=== PATIENT | male | born 1965 | race Caucasian/White ===

== ENCOUNTER 2019-06-03 09:54 | Outpatient (CLI) | payer OTHER, SELFPAY ==
--- NOTE | ~2019-06-03 | US_ITS ---
US abdomen limited 06/03/2019 10:24 Indication: Epigastric mass Procedure: High-resolution Limited ultrasound of the anterior abdominal wall Comparison: No prior studies for comparison. Findings: There is normal heterogeneous echotexture without focal mass. No evidence for hernia. No fl uid collections. Impression: 1: Normal limited ultrasound of the anterior abdominal wall soft tissues in the epigastric region. Reviewed, dictated and finalized at location A. Impression: 1: Normal limited ultrasound of the anterior abdominal wall soft tissues in the epigastric region.
== END 2019-06-03 09:55 | disposition home or self-care (01) ==
LOC: ANHIMG 10:01
PROVIDERS: PCP Registered Nurse; Visit Provider Registered Nurse
DX: R19.06 Epigastric swelling, mass or lump (principal)
CPT/HCPCS: 76705

== ENCOUNTER 2020-02-29 18:51 | Emergency (ER) | payer OTHER, SELFPAY ==
[2020-02-29] VITALS (17 sets, daily range): BP systolic 128–163; BP diastolic 78–98; PULSE 65–78; RESP 14–24; TEMP 36.8; O2SAT 95–99
--- NOTE | ~2020-02-29 | XR_ITS ---
EXAMINATION: XR chest 2V EXAM DATE: 02/29/2020 19:31 INDICATION: Midsternal chest pain started today. Shortness of breath and vomiting. TECHNIQUE: Frontal and lateral projections of the chest obtained and reviewed. There is no prior mai dy for comparison. FINDINGS: Small amount of linear bilateral opacity consistent with atelectasis. The lungs are otherw ise clear. There are no pleural effusions. The cardiomediastinal silhouette is within normal limits . There is no pneumothorax suspected. The bones and soft tissues are unremarkable. IMPRESSION: Small linear opacities likely atelectasis. Reviewed, dictated and finalized at location A. [address]
--- NOTE | 2020-02-29 19:01 | ECG_ITS ---
Measurements Intervals [place] Rate: 68 P: 45 OK: 188 QRS: 31 QRSD: 110 T: 33 QT: 380 QTc: 406 Interpretive Statements SINUS RHYTHM NORMAL ECG Electronically Signed On 03-01-2020 7:12:28 [employer] by Joaquim Botello D.O.
[2020-02-29] MEDS: ASPIRIN 81 MG CHEWABLE TABLET 324 MG PO (19:16)
[2020-02-29 19:26] LABS: Basophils Absolute Auto 0.1 K/mm3 (0.0-0.1); Basophils Percent Auto 0.8 % (0.2-1.2); Eosinophils Absolute Auto 0.2 K/mm3 (0-0.3); Eosinophils Percent Auto 2.7 % (0-4.4); Hematocrit 39.1 % (42.0-52.0); Hemoglobin 13.6 g/dL (14.0-18.0); Immature Granulocyte Absolute 0.01 K/mm3 (0.00-0.031); Immature Granulocyte Percent A 0.1 % (0-0.5); Lymphocytes Absolute Auto 2.92 K/mm3 (0.9-3.2); Lymphocytes Percent Auto 39.6 % (18.3-44.2); Mean Corpuscular HGB Conc 34.8 g/dl (32-36); Mean Corpuscular Hemoglobin 31.3 pg (26-34); Mean Corpuscular Volume 90.1 fl (80-100); Mean Platelet Volume 10.1 fl (7.4-10.4); Monocytes Absolute Auto 0.6 K/mm3 (0.1-0.6); Monocytes Percent Auto 7.9 % (2.6-8.5); Neutrophils Absolute Auto 3.6 K/mm3 (1.3-6.7); Neutrophils Percent Auto 48.9 % (45.5-73.1); Platelet Count Result 271 k/mm3 (150-375); Red Blood Count 4.34 M/mm3 (4.6-6.20); Red Cell Distribution Width 11.9 % (11.5-14.5); White Blood Count 7.4 K/mm3 (4.5-10.0)
[2020-02-29 19:38] LABS: Anion Gap 9 mmol/L (8-16); Blood Urea Nitrogen 13 mg/dL (9-20); Calcium 8.8 mg/dL (8.4-10.2); Carbon Dioxide 25 mmol/L (22-30); Chloride 104 mmol/L (98-107); Estimated CRCL calculation 100 ml/min; Estimated Glomerular Filt Rate > 60; Glucose 96 mg/dL (75-110); Potassium 3.6 mmol/L (3.4-5.0); Sodium 138 mmol/L (137-145)
[2020-02-29 19:47] LABS: INR 0.9
[2020-02-29 19:48] LABS: Partial Thromboplastin Time 25.9 SECONDS (22.3-36.8)
[2020-02-29 19:50] LABS: Troponin I < 0.012 ng/mL (0.000-0.034)
--- NOTE | 2020-02-29 21:04 | ED.CHESTPAIN ---
HPI - Chest Pain General Chief Complaint: Chest Pain Stated Complaint: cp, n/v Time Seen by Provider: 02/29/20 18:59 History of Present Illness HPI narrative: Patient is a 54-year-old male who presents ER with chest pain. Patient reports he sat down to eat dinner and he took a bite of his fork ribs when he started to feel pressure in his central chest. Excuse himself in several months without trying. He had continued pressure as well as nausea and attempts to vomit. Reports mild discomfort breathing. Symptoms resolved on the way to the ER. Asymptomatic this time. Has had this happen other times. He believes it was also was eating. Denies having any acid reflux symptoms. No exertional chest pain. Concerned because he had a brother that recently of an [place]. No radiation of pain. Cannot describe any alleviating factors. Related Data Home Medications Medication Instructions Recorded Confirmed No Home Medications 02/29/20 02/29/20 Allergies Allergy/AdvReac Type Severity Reaction Status Date / Time Penicillins Allergy Fever Verified 02/29/20 18:59 Review of Systems Review of Systems: All systems reviewed & are unremarkable except as noted in HPI and below Constitutional: Constitutional: Denies chills, Denies fever(s) and Denies weakness ENT: Reports dysphagia, Denies nasal congestion and Denies sore throat Cardiovascular: Cardiovascular: Reports chest pain, Denies rapid heart rate and Denies radiating jaw, neck or arm pain Respiratory: Respiratory: Denies cough and Denies dyspnea Gastrointestinal: Gastrointestinal: Denies abdominal pain, Denies heartburn, Reports nausea and Reports vomiting PMFSH Past Medical History Medical History (Updated 02/29/20 @ 21:13 by Adis Whitaker MD) Healthy adult male Surgical History Surgical History (Updated 02/29/20 @ 21:07 by Adis Whitaker MD) History of orthopedic surgery Social History Social History (Updated 02/29/20 @ 21:07 by Adis Whitaker MD) Smoking status: Never smoker Exam Narrative: Exam Narrative: GENERAL: Well-appearing, well-nourished, and in no acute distress. HEAD: Normocephalic, atraumatic. ENT: Mucous membranes moist. CHEST: Clear to auscultation. No respiratory distress. HEART: Regular rate and rhythm. Normal peripheral pulses. ABDOMEN: Soft, nontender, nondistended. EXTREMITIES: Normal range of motion. No edema. NEURO: NAlert and oriented x3. PSYCH: Normal mood and affect. Course Course Emergency Course: Symptoms most consistent with food bolus but will perform 2 separate phone given family history and patient is concerned. EKG unremarkable. Reevaluation(s) Reevaluation #1: trop neg x 2. Date: 02/29/20 Time: 22:42 Vital Signs Vital signs: Vital Signs Temperature 98.2 F 02/29/20 18:55 Pulse Rate 70 02/29/20 18:55 Respiratory Rate 18 02/29/20 18:55 Blood Pressure 163/94 H 02/29/20 18:55 Pulse Oximetry 96 02/29/20 18:55 Temperature 98.2 F 02/29/20 18:55 Pulse Rate 70 02/29/20 21:30 Respiratory Rate 14 02/29/20 21:30 Blood Pressure 142/94 H 02/29/20 21:30 Pulse Oximetry 97 02/29/20 21:30 MDM - Chest Pain Lab Data Result diagrams: 02/29/20 19:19 02/29/20 19:19 Labs: Lab Results 02/29/20 02/29/20 02/29/20 Range/Units 19:19 19:19 19:19 WBC 7.4 (4.5-10.0) K/mm3 RBC 4.34 L (4.6-6.20) M/mm3 Hgb 13.6 L (14.0-18.0) g/dL Hct 39.1 L (42.0-52.0) % MCV 90.1 (80-100) fl MCH 31.3 (26-34) pg MCHC 34.8 (32-36) g/dl RDW 11.9 (11.5-14.5) % Plt Count 271 (150-375) k/mm3 MPV 10.1 (7.4-10.4) fl Immature Gran % (Auto) 0.1 (0-0.5) % Neut % (Auto) 48.9 (45.5-73.1) % Lymph % (Auto) 39.6 (18.3-44.2) % [place] % (Auto) 7.9 (2.6-8.5) % Eos % (Auto) 2.7 (0-4.4) % Baso % (Auto) 0.8 (0.2-1.2) % Lymph # (Auto) 2.92 (0.9-3.2) K/mm3 [place] # (Auto) 0.6 (0.1-0.6) K/mm3 Eos # (
[2020-02-29 22:34] LABS: Troponin I < 0.012 ng/mL (0.000-0.034)
== END 2020-02-29 22:53 | disposition home or self-care (01) ==
PROVIDERS: Emergency Provider Emergency Medicine; PCP Registered Nurse
DX: R07.89 Other chest pain (principal); T18.128A Food in esophagus causing other injury, initial encounter; R91.8 Other nonspecific abnormal finding of lung field
CPT/HCPCS: 36415; 71046; 80048; 84484; 85025; 85610; 85730; 93005; 99284; A9270

== ENCOUNTER 2021-07-27 10:07 | Outpatient (CLI) | payer OTHER, SELFPAY ==
[2021-07-27 10:36] LABS: Hematocrit 41.3 % (42.0-52.0); Hemoglobin 14.1 g/dL (14.0-18.0); Mean Corpuscular HGB Conc 34.1 g/dl (32-36); Mean Corpuscular Hemoglobin 31.5 pg (26-34); Mean Corpuscular Volume 92.4 fl (80-100); Mean Platelet Volume 9.9 fl (7.4-10.4); Platelet Count Result 263 k/mm3 (150-375); Red Blood Count 4.47 M/mm3 (4.6-6.20); Red Cell Distribution Width 12.5 % (11.5-14.5)
[2021-07-27 10:46] LABS: Alanine Aminotransferase 56 U/L (6-50); Albumin Level 4.3 g/dL (3.5-5.1); Alkaline Phosphatase 97 U/L (38-126); Anion Gap 3 mmol/L (8-16); Aspartate Amino Transferase 35 U/L (17-59); Bilirubin,Total 0.5 mg/dL (0.2-1.3); Blood Urea Nitrogen 10 mg/dL (9-20); Calcium 8.7 mg/dL (8.4-10.2); Carbon Dioxide 27 mmol/L (22-30); Chloride 107 mmol/L (98-107); Estimated Glomerular Filt Rate > 60; Glucose 107 mg/dL (65-110); Potassium 4.4 mmol/L (3.4-5.0); Sodium 137 mmol/L (137-145)
[2021-07-31 12:10] LABS: Tissue Transglutaminase IgG Ab <1.0 U/mL (<15.0)
[2021-08-01 09:36] LABS: Tissue Transglutaminase IgA Ab <1.0 U/mL (<15.0)
== END 2021-07-27 10:08 | disposition home or self-care (01) ==
LOC: ANHLAB 10:11
PROVIDERS: PCP Registered Nurse; Visit Provider Nurse Practitioner Family
DX: R19.7 Diarrhea, unspecified (principal); R10.32 Left lower quadrant pain; R14.0 Abdominal distension (gaseous)
CPT/HCPCS: 36415; 80053; 83516; 84443; 85027

== ENCOUNTER 2021-09-06 07:44 | Outpatient (CLI) | payer OTHER, SELFPAY ==
[2021-09-06 09:05] LABS: Toxigenic C. Diff NEGATIVE (NEGATIVE)
[2021-09-12 23:17] LABS: Calprotectin, Stool 48 mcg/g
== END 2021-09-06 07:45 | disposition home or self-care (01) ==
PROVIDERS: PCP Registered Nurse; Visit Provider Nurse Practitioner Family
DX: E66.9 Obesity, unspecified (principal); R10.32 Left lower quadrant pain; R14.0 Abdominal distension (gaseous); R19.7 Diarrhea, unspecified
CPT/HCPCS: 83993; 87045; 87177; 87209; 87427; 87493

== ENCOUNTER → 2021-09-09 13:40 | Outpatient (CLI) | payer OTHER, SELFPAY ==
--- NOTE | ~2021-09-09 | CT_ITS ---
EXAMINATION: CT abdomen pelvis w con DATE: 09/09/2021 14:24 INDICATION: Left lower quadrant abdominal pain. TECHNIQUE: Computed tomography (CT) of the abdomen and pelvis was performed with 100 mL Omnipaque 350 intravenous contrast. Automated exposure control and iterative reconstruction technique were employe d. The dose-length product was 1134.46 mGy-cm. COMPARISON: None. FINDINGS: The visualized portions of the lung bases demonstrate mild atelectasis. A calcified left leslie ng nodule is consistent with old granulomatous disease. No pleural effusion. The heart size is normal . No pericardial effusion. There are coronary artery calcifications. The liver, gallbladder, spleen, pancreas, adrenal glands, and right kidney are normal. There is a 1 mm stone in left kidney. There ar e scattered diverticula in the colon. There is an intussusception involving transverse colon. There i s wall thickening of the involved bowel. The more proximal bowel is not dilated. There is an umbilica l hernia containing fat. There are no pathologically enlarged lymph nodes. There is no free intraperi toneal fluid. There is a hemangioma in L2 vertebral body. There is moderate lower lumbar spondylosis. There is a hemangioma in T7 vertebral body. IMPRESSION: 1. Intussusception involving transverse colon. Wall thickening of the involved bowel is suspicious fo r malignancy. No dilated bowel to suggest current obstruction. 2. Umbilical hernia containing fat. Reviewed, dictated and finalized at location A. IMPRESSION: 1. Intussusception involving transverse colon. Wall thickening of the involved bowel is suspicious for malignancy. No dilated bowel to suggest current obstruc tion. 2. Umbilical hernia containing fat.
== END ==
PROVIDERS: PCP Nurse Practitioner; Visit Provider Nurse Practitioner
DX: K92.1 Melena (principal); R19.7 Diarrhea, unspecified; R14.0 Abdominal distension (gaseous); R10.32 Left lower quadrant pain; K56.1 Intussusception; K42.9 Umbilical hernia without obstruction or gangrene
CPT/HCPCS: 74177; Q9967

== ENCOUNTER 2021-09-09 15:43 | Inpatient (IN) | payer OTHER, SELFPAY ==
--- NOTE | ~2021-09-09 | XR_ITS ---
XR enema water soluble DATE: 09/10/2021 11:39 INDICATION: Left lower quadrant abdominal pain TECHNIQUE: Water-soluble single contrast enema. 26 images 4.0 minutes fluoroscopy time 210.307 total DAP COMPARISON: 09/09/2021 CT abdomen pelvis FINDINGS: Occasional sigmoid diverticula. There was delay 2 retrograde filling of the colon in the mi d transverse colon area which may be due to prominent amount of fecal material or the possibility of an intussusception suggested on 09/09/2021 CT abdomen and pelvis examination. There is fecal material remaining within the colon, which prevents confident exclusion of polyps or m ass lesion of the colon. Colon mass could be a lead point for transverse colon intussusception. Colon oscopy is recommended. Reflux was obtained into the terminal ileum. IMPRESSION: Retained fecal material within the colon which prevents exclusion of polyps or masses. Co lonoscopy is strongly recommended. Mild sigmoid colon diverticulosis Reviewed, dictated and finalized at Location A. Reviewed, dictated and finalized at location A. IMPRESSION: Retained fecal material within the colon which prevents exclusion o f polyps or masses. Colonoscopy is strongly recommended. Mild sigmoid colon diverticulosis
[2021-09-09 15:55] VITALS: BP 138/101; PULSE 71; RESP 18; TEMP 36.1; O2SAT 98
[2021-09-09 16:22] LABS: Basophils Percent Auto 0.6 % (0.2-1.2); Eosinophils Absolute Auto 0.1 K/mm3 (0-0.3); Eosinophils Percent Auto 1.7 % (0-4.4); Hematocrit 41.7 % (42.0-52.0); Hemoglobin 14.4 g/dL (14.0-18.0); Immature Granulocyte Absolute 0.02 K/mm3 (0.00-0.031); Immature Granulocyte Percent A 0.3 % (0-0.5); Lymphocytes Absolute Auto 2.25 K/mm3 (0.9-3.2); Lymphocytes Percent Auto 34.5 % (18.3-44.2); Mean Corpuscular HGB Conc 34.5 g/dl (32-36); Mean Corpuscular Hemoglobin 31.4 pg (26-34); Mean Corpuscular Volume 90.8 fl (80-100); Mean Platelet Volume 10.2 fl (7.4-10.4); Monocytes Absolute Auto 0.4 K/mm3 (0.1-0.6); Monocytes Percent Auto 6.4 % (2.6-8.5); Neutrophils Absolute Auto 3.7 K/mm3 (1.3-6.7); Neutrophils Percent Auto 56.5 % (45.5-73.1); Platelet Count Result 272 k/mm3 (150-375); Red Blood Count 4.59 M/mm3 (4.6-6.20); Red Cell Distribution Width 11.8 % (11.5-14.5); White Blood Count 6.5 K/mm3 (4.5-10.0)
[2021-09-09 16:31] LABS: Alanine Aminotransferase 42 U/L (6-50); Albumin Level 4.2 g/dL (3.5-5.1); Alkaline Phosphatase 101 U/L (38-126); Anion Gap 9 mmol/L (8-16); Aspartate Amino Transferase 29 U/L (17-59); Bilirubin,Total 0.5 mg/dL (0.2-1.3); Blood Urea Nitrogen 12 mg/dL (9-20); Calcium 8.9 mg/dL (8.4-10.2); Carbon Dioxide 27 mmol/L (22-30); Chloride 102 mmol/L (98-107); Estimated CRCL calculation 86 ml/min; Estimated Glomerular Filt Rate > 60; Glucose 109 mg/dL (65-110); Lipase 103 U/L (23-300); Potassium 3.9 mmol/L (3.4-5.0); Sodium 138 mmol/L (137-145)
--- NOTE | 2021-09-09 17:26 | ED.GENADULT ---
HPI - General Adult General Chief complaint: Abdominal Pain Stated complaint: dr urbina sent here after ct scan - blockage/cance Time Seen by Provider: 09/09/21 17:07 Source: RN notes reviewed History of Present Illness HPI narrative: Patient presents emergency department from home for intussusception. Patient states that he had ongoing history of lower abdominal pain for the past 6 months the pain is described as achy in nature has been followed up in Dr Urbina's office by Morenita andhe had a CT scan today showing it intussusception with thickening of the transverse colon patient was instructed come to ER for further evaluation he denies any fevers or chills chest pain shortness of breath nausea vomiting he states he has had loose stools states he has not had a colonoscopy before in the past and is scheduled for colonoscopy at the end of this month Related Data Allergies Allergy/AdvReac Type Severity Reaction Status Date / Time Penicillins Allergy Fever Verified 09/09/21 16:00 Review of Systems Review of Systems: Gen.: Denies fevers or chills ENT: Denies congestion Respiratory: Denies shortness of breath or cough CV: Denies chest pain or palpitations GI: See HPI Musculoskeletal: Denies back pain or muscle pain Neuro: Denies numbness, tingling, weakness or focal weakness Skin: Denies rash Except as documented, all other systems reviewed and negative PMFSH Past Medical History Medical History Bloating Blood in stool Diarrhea Elevated liver enzymes Healthy adult male Left lower quadrant pain Obese Surgical History Surgical History History of orthopedic surgery Social History Social History Smoking status: Never smoker Exam Narrative: APPEARANCE: No acute distress, nontoxic, resting in bed HEENT: Normocephalic, atraumatic, OMM RESPIRATORY: No respiratory distress, clear to auscultation bilaterally with no rhonchi wheezing or rales CARDIOVASCULAR: RRR s murmur ABDOMINAL: Soft nondistended nontender to palpation no rebound or guarding MUSCULOSKELETAl: Moves all extremities. No clubbing, cyanosis or edema. NEURO: Awake and alert. Following commands, speech normal, no focal deficits SKIN:: Warm, dry. Normal Color PSYCHIATRIC: Normal affect/mood Course Course Emergency Course: Reviewed CT scan showing intussusception with thickening of the involved colon located over the transverse colon Called discussed with Dr Urbina presentation work-up at this time he recommends admission of the patient with consult with general surgery states patient can be on clear liquids Discussed with Dr. Spencer presentation work-up agrees with consult Discussed with BREANNA Nassar for Dr. Marques agrees with admission Discussed with patient and family results of workup and diagnosis. Discussed need for admission. Patient and family understand and agree to current treatment plan Vital Signs Vital signs: Vital Signs Temperature 97 F L 09/09/21 15:55 Pulse Rate 71 09/09/21 15:55 Respiratory Rate 18 09/09/21 15:55 Blood Pressure 138/101 H 09/09/21 15:55 Pulse Oximetry 98 09/09/21 15:55 Temperature 97 F L 09/09/21 15:55 Pulse Rate 71 09/09/21 15:55 Respiratory Rate 18 09/09/21 15:55 Blood Pressure 138/101 H 09/09/21 15:55 Pulse Oximetry 98 09/09/21 15:55 Medical Decision Making Vital Signs Vital Signs: Vital Signs Temperature 97 F L 09/09/21 15:55 Pulse Rate 71 09/09/21 15:55 Respiratory Rate 18 09/09/21 15:55 Blood Pressure 138/101 H 09/09/21 15:55 Pulse Oximetry 98 09/09/21 15:55 Temperature 97 F L 09/09/21 15:55 Pulse Rate 71 09/09/21 15:55 Respiratory Rate 18 09/09/21 15:55 Blood Pressure 138/101 H 09/09/21 15:55 Pulse Oximetry 98 09/09/21 15:55 Lab Data Result diagrams: 09/09/21 16:05
[2021-09-09 17:38] LABS: Lactic Acid Reflex 0.9 mmol/L (0.7-2.0)
[2021-09-09 17:39] LABS: Partial Thromboplastin Time 25.6 SECONDS (22.3-36.8)
[2021-09-09 18:03] LABS: Appearance Urine Clear (Clear); Bilirubin Urine Negative (Negative); Blood Urine Negative (Negative); Color Urine Yellow (Yellow); Glucose Urine UA Negative (Negative); Ketones Urine Negative (Negative); Leukocyte Esterase Ur Negative LEU/UL (Negative); Nitrate Urine Negative (Negative); Protein Urine Negative (Negative); Urobilinogen Urine 0.2 mg/dL (<2.0); pH Urine 6.5 (5.0-9.0)
[2021-09-09 18:05] LABS: Add Urine Microscopic? NO
[2021-09-09] MEDS: PANTOPRAZOLE SODIUM IV 40 MG VIAL IV PUSH (18:16)
[2021-09-09] MEDS: SODIUM CHLORIDE 0.9% IV 1,000 ML 125 ML IV CONT (18:16)
[2021-09-09 18:28] LABS: SARS-CoV-2 RNA PCR Negative
[2021-09-09 19:20] VITALS: BP 125/78; PULSE 59; RESP 18; O2SAT 98
[2021-09-09 20:14] VITALS: BP 141/88; PULSE 68; RESP 18; O2SAT 99
[2021-09-09 20:40] VITALS: BP 123/93; PULSE 64; RESP 18; TEMP 36.6; O2SAT 98; BMI 30.7
--- NOTE | 2021-09-09 20:52 | PC.NURSE ---
This patient, Russell Vang, was admitted to [facility] Surg Room 301-01. Patient/family oriented to hospital policies and general routines including ID bracelet, bed and alarms, visiting hours, pain management, procedures, bathroom and other care routines, personal items, smoking policy, room service/diet, and visiting hours. Information on how to activate the Rapid Response Team has been discussed. Patient/Family are encouraged to report perceived risks to care and to ask questions if they do not understand what they are told or what they should do.
[2021-09-09 22:00] VITALS: PULSE 66; RESP 17; O2SAT 98
--- NOTE | 2021-09-09 23:42 | PM.IMHP ---
H&P: HPI History of Present Illness Date/Time: 09/09/21 23:42 Chief Complaint: Abnormal CT Reading Narrative: Greater than 30 minutes spent reviewing chart, evaluating, treating, counseling patient. Anticipate less than 48 hour admission, will place under observation. 56-year-old male no significant past medical history presents after abnormal CT abdomen pelvis rating. Patient has a history of diarrhea for the past year, 5-10 times a day of liquid stool. Patient also has had abdominal pain for the past 2 months in bilateral lower quadrants. He initially thought the diarrhea was secondary to his protein diet was taken with a shake and stop this, however the diarrhea continued. For the past 2 months he has noted specks of blood in his stool. Patient was evaluated by GI couple months ago and plan was for a colonoscopy in the next month. Patient initially was on Bentyl 10 mg, however for the past 2 months doubled up on the Bentyl and has noted decreased abdominal pain and improvement in diarrhea with now soft stools. Patient denies weight loss and night sweats. No family history of IBD or colon cancer. CT abdomen/pelvis demonstrating intussusception involving the transverse colon along with wall thickening suspicious for malignancy. No dilated bowel suggestive of obstruction. GI and general surgery consult in the ED. Review of Systems Review of Systems: Ten point ROS reviewed, negative unless otherwise specified per HPI [facility] Past Medical History Medical History Bloating Blood in stool Diarrhea Elevated liver enzymes Healthy adult male Left lower quadrant pain Obese Surgical History Surgical History History of orthopedic surgery Social History Social History Smoking status: Never smoker Alcohol intake: current Drinks per week: 12 Substance use: never Spiritual care concerns: No Meds Home Medications and Allergies Home Medications Medication Instructions Recorded Confirmed Type dicyclomine 10 mg capsule 20 mg PO TID PRN abdominal 09/09/21 09/09/21 History discomfort Allergies Allergy/AdvReac Type Severity Reaction Status Date / Time Penicillins Allergy Fever Verified 09/09/21 16:00 Vital Signs Vital Signs - 24 hr 09/09/21 15:55 09/09/21 19:20 09/09/21 20:14 Temperature 97 F L Pulse Rate 71 59 L 68 Respiratory Rate 18 18 18 Blood Pressure 138/101 H 125/78 141/88 H Pulse Oximetry 98 98 99 09/09/21 20:40 Temperature 97.8 F Pulse Rate 64 Respiratory Rate 18 Blood Pressure 123/93 H Pulse Oximetry 98 Exam Const: General: comfortable and no acute distress HENMT: Mouth: Yes moist mucous membranes Eyes: General: appearance normal, both eyes and all related structures Pupils: Equal, round and reactive pupils present Neck: Neck: supple Resp: Effort & Inspection: normal respiratory effort Auscultation: clear to auscultation bilaterally Cardio: Rate: regular rate Rhythm: regular rhythm Other: no gallop or murur GI: GI Palp: Yes Soft to palpation Auscultation: normal bowel sounds Other: nontender, nondistended Skin: General skin exam: normal color Other: petechiae noted on abdomen, tattoos on b/l UEs Neuro: Speech: normal speech Motor exam (neuro): 5/5 motor strength present throughout Sensory Exam: normal sensation Extrem: General: normal to inspection Psych: Mental Status: mental status grossly normal Affect: normal affect H&P: Results Labs Labs: Short CBC 09/09/21 Range/Units 16:05 WBC 6.5 (4.5-10.0) K/mm3 Hgb 14.4 (14.0-18.0) g/dL Hct 41.7 L (42.0-52.0) % Plt Count 272 (150-375) k/mm3 BMP 09/09/21 16:05 Sodium 138 Potassium 3.9 Chloride 102 Carbon Dioxide 27 BUN 12 Creatinine 1.00 Glucose 109 Calcium 8.9 Liver Function 08
[2021-09-10 05:56] VITALS: BP 121/85; PULSE 63; RESP 18; TEMP 36.7; O2SAT 97
[2021-09-10 06:33] LABS: Basophils Percent Auto 0.7 % (0.2-1.2); Eosinophils Absolute Auto 0.1 K/mm3 (0-0.3); Eosinophils Percent Auto 2.3 % (0-4.4); Hematocrit 41.6 % (42.0-52.0); Hemoglobin 14.3 g/dL (14.0-18.0); Immature Granulocyte Absolute 0.01 K/mm3 (0.00-0.031); Immature Granulocyte Percent A 0.2 % (0-0.5); Lymphocytes Absolute Auto 2.04 K/mm3 (0.9-3.2); Mean Corpuscular HGB Conc 34.4 g/dl (32-36); Mean Corpuscular Hemoglobin 31.3 pg (26-34); Mean Platelet Volume 10.7 fl (7.4-10.4); Monocytes Absolute Auto 0.6 K/mm3 (0.1-0.6); Monocytes Percent Auto 9.3 % (2.6-8.5); Neutrophils Absolute Auto 3.2 K/mm3 (1.3-6.7); Neutrophils Percent Auto 53.5 % (45.5-73.1); Platelet Count Result 266 k/mm3 (150-375); Red Blood Count 4.57 M/mm3 (4.6-6.20); Red Cell Distribution Width 11.8 % (11.5-14.5)
[2021-09-10 07:07] LABS: Alanine Aminotransferase 39 U/L (6-50); Albumin Level 3.9 g/dL (3.5-5.1); Alkaline Phosphatase 96 U/L (38-126); Anion Gap 6 mmol/L (8-16); Aspartate Amino Transferase 30 U/L (17-59); Bilirubin,Total 0.7 mg/dL (0.2-1.3); Blood Urea Nitrogen 11 mg/dL (9-20); Calcium 8.3 mg/dL (8.4-10.2); Carbon Dioxide 26 mmol/L (22-30); Chloride 105 mmol/L (98-107); Estimated CRCL calculation 95 ml/min; Estimated Glomerular Filt Rate > 60; Glucose 105 mg/dL (65-110); Potassium 3.9 mmol/L (3.4-5.0); Sodium 137 mmol/L (137-145)
[2021-09-10] MEDS: ENOXAPARIN 40 MG/0.4 ML SYRINGE SUB-Q (09:19)
--- NOTE | 2021-09-10 09:50 | WPDGICN ---
Assessment and Plan Assessment and plan (1) Intussusception of colon: Code(s): K56.1 - Intussusception Status: Acute Assessment and Plan: CT scan suggest transverse colon mass an intussusception. Likely this accounts for his abdominal cramping. No specific obstruction by CT scan. This finding on CT scan appears to correlate with symptoms of intermittent abdominal cramping and loose stools. Plan is for colonoscopy Sunday after preparation. Will ask surgery to be aware patient is likely this will require surgical therapy. Laboratory parameters currently appears stable. No signs of metastatic disease. Question is whether this is malignant or benign lesion. (2) Diarrhea: Code(s): R19.7 - Diarrhea, unspecified Status: Acute Assessment and Plan: Diarrhea likely related to finding on CT scan. He if diarrhea recurs stool cultures will be beneficial. (3) Blood in stool: Code(s): K92.1 - Melena Status: Acute Assessment and Plan: No active bleeding but patient does describe intermittent bright red blood per rectum to a small degree with spots intermittently GI Consult Note Consult date/time: 09/10/21 09:50 Reason for consult: Abnormal CT scan. HPI: Russell Vang is a 56 year old male Admitted to the hospital with intussusception and possible colon mass. Patient reports that over the last month and a half patient has had rather significant diarrhea. He complains of intermittent abdominal cramping. He has spotted some blood in his stools intermittently. Patient seen in the GI office by the nurse practitioner 1 month ago. At that time colonoscopy and CT scan were range. Because of insurance difficulties the CT scan was finally performed yesterday. CT scan revealed the patient had transverse colon intussusception and possible mass in the transverse colon. Patient states that the diarrhea has been ongoing. The abdominal pain intermittent. Abdominal pain is improved on taking Bentyl. Patient denies any weight loss. He has tolerated diet without difficulty. Family history is noncontributory. Review of Systems Review of Systems: Review of systems noncontributory. [facility] Past Medical History Medical History Bloating Blood in stool Diarrhea Elevated liver enzymes Healthy adult male Left lower quadrant pain Obese Surgical History Surgical History History of orthopedic surgery Social History Social History Smoking status: Never smoker Alcohol intake: current Drinks per week: 12 Substance use: never Spiritual care concerns: No Meds Home Medications and Allergies Home Medications Medication Instructions Recorded Confirmed Type dicyclomine 10 mg capsule 20 mg PO TID PRN abdominal 09/09/21 09/09/21 History discomfort Allergies Allergy/AdvReac Type Severity Reaction Status Date / Time Penicillins Allergy Fever Verified 09/09/21 16:00 Vital Signs Vital Signs - 24 hr 09/09/21 15:55 09/09/21 19:20 09/09/21 20:14 Temperature 97 F L Pulse Rate 71 59 L 68 Respiratory Rate 18 18 18 Blood Pressure 138/101 H 125/78 141/88 H Pulse Oximetry 98 98 99 09/09/21 20:40 09/10/21 05:56 Temperature 97.8 F 98.1 F Pulse Rate 64 63 Respiratory Rate 18 18 Blood Pressure 123/93 H 121/85 Pulse Oximetry 98 97 Exam Narrative: Physical exam reveals patient be alert. Vital signs stable. HEENT exam reveals no icterus. Lungs are clear to auscultation and percussion. Heart is without murmur or extra sounds. Abdominal exam soft flat bowel sounds are present nontender with no organomegaly. Extremities are without clubbing cyanosis or edema. Results Labs CBC & Chem 7: 09/10/21 05:28 09/10/21 05:28 Labs: Short CBC 09/09/21
[2021-09-10 10:01] VITALS: O2SAT 97
--- NOTE | 2021-09-10 10:47 | PM.CNGS ---
Assessment and Plan Assessment and plan (1) Intussusception of colon: Code(s): K56.1 - Intussusception Status: Acute Assessment and Plan: I have reviewed the CT and discussed the findings with the patient. He has evidence of an intussusception of the transverse colon and mass is suspected as the lead point. Will plan to get a Hypaque enema today to help reduce the intussusception and identify if there is a constricting lesion in this region. Will also check CEA level tomorrow morning. I agree with planning to proceed with colonoscopy in order to fully assess the colon and biopsy any potential masses. Discussed with patient that surgical resection will likely be necessary to prevent recurrent intussusception. Will continue to follow along with patient and discuss surgical plans in more detail once more information is obtained through further testing. (2) Blood in stool: Code(s): K92.1 - Melena Status: Acute (3) Diarrhea: Code(s): R19.7 - Diarrhea, unspecified Status: Acute (4) Abnormal CT of the abdomen: Code(s): R93.5 - Abnormal findings on diagnostic imaging of other abdominal regions, including retroperitoneum Status: Acute History of Present Illness Consult details Consult date: 09/10/21 Reason for consult: other (Colon mass with intussusception) Requesting physician: Daniel Rosado DO Narrative: This is a 56-year-old man who presented to the emergency department yesterday after receiving results of a CT scan. I am asked to see the patient for a possible colon mass and intussusception. He states that he has been having diarrhea for about the last year. He describes the diarrhea as watery and has about 5-6 bowel movements like this per day. States about 2 months ago he was having some crampy lower abdominal pain and also noted small amounts of blood in the toilet with stool. He saw JESS Garcia in the GI clinic in July and some labs were ordered along with planned CT abdomen and pelvis and colonoscopy. Patient states that he had difficulty with obtaining insurance approval for getting the CT and that was why the CT was delayed until just yesterday. CT showed evidence of transverse colon wall thickening with intussusception concerning for malignancy. He denies any weight loss or any upper abdominal pain. He has never had a colonoscopy before. He denies any family history of colon cancer. He states that he is overall very healthy and exercises frequently. Review of Systems Review of Systems: All systems reviewed & are unremarkable except as noted in HPI and below Constitutional: Constitutional: Denies chills, Denies fatigue, Denies fever(s) and Denies weight loss Eyes: Eyes: Denies change in vision ENT: Denies hearing loss, Denies neck pain and Denies sore throat Cardiovascular: Cardiovascular: Denies chest pain and Denies dyspnea Respiratory: Respiratory: Denies cough, Denies dyspnea and Denies wheezing Gastrointestinal: Gastrointestinal: Reports as per HPI Genitourinary: Genitourinary: Denies hematuria and Denies dysuria Musculoskeletal: Musculoskeletal: Denies arthralgias, Denies joint swelling and Denies neck pain Allergic/Immunologic: Allergic/Immunologic: Denies wheezing [facility] Past Medical History Medical History Bloating Blood in stool Diarrhea Elevated liver enzymes Healthy adult male Left lower quadrant pain Obese Surgical History Surgical History History of orthopedic surgery Social History Social History Smoking status: Never smoker Alcohol intake: current Drinks per week: 12 Substance use: never Spiritual care concerns: No Meds Home Medications and Allergies Home Medications Medication Instructions Recorded Confirmed Type dicyclomine 10 m
[2021-09-10 14:00] VITALS: BP 115/86; PULSE 64; RESP 20; TEMP 36.8; O2SAT 97
--- NOTE | 2021-09-10 14:07 | PM.IMPN ---
Progress Note: A&P Assessment and Plan (1) Intussusception of colon: Code(s): K56.1 - Intussusception Status: Acute Assessment and Plan: CT of abdomen/pelvis revealed intussusception involving transverse colon with suspected mass as lead point Bowel wall thickening on imaging concerning for malignancy CEA level pending Appreciate general surgery and Gastroenterology consultation Planning for colonoscopy on Sunday for further evaluation of the colon and biopsy of possible mass Hypaque enema completed today Continue clear liquid diet (2) Diarrhea: Code(s): R19.7 - Diarrhea, unspecified Status: Acute Assessment and Plan: Ongoing issue Appreciate gastroenterology consultation [place] to be related to CT findings Colonoscopy on Sunday (3) Blood in stool: Code(s): K92.1 - Melena Status: Acute Assessment and Plan: Patient describes intermittent specks of bright red blood in his stool No active bleeding at this time H&H stable Planning for colonoscopy as above Subjective Date/time seen: 09/10/21 14:07 Interval history: Date of service: 09/11/2019 Russell Vang is a 56-year-old male ongoing diarrhea abdominal pain for 1 year recently established with Gastroenterology who is seen in follow-up for intussusception. He is doing relatively well today. He had just returned completing a Hypaque enema. Pretty significant abdominal pressure and intense cramping. He is now feeling more comfortable in the sensation has resolved. He denies any abdominal pain at this time. Denies nausea or vomiting. He has had about 3 loose, watery brown stools today. He states this is typical for as he usually has 10-12 loose stools per day. He denies any recent weight loss and in fact states he has been attempting to lose weight and despite his active lifestyle and healthy diet, he has not lost any weight. He denies night sweats. Denies fevers or chills. No shortness breath, cough, chest pain. Review of Systems Review of Systems: All systems reviewed & are unremarkable except as noted in HPI and below Exam Narrative: General: Well-nourished, well-appearing 56-year-old male, sitting up at the bedside, comfortable, NARD Neuro: awake, alert and oriented x4, speech clear, no focal neuro deficits noted HEENMT: normocephalic, atraumatic, EOMI, sclerae anicteric Respiratory: clear to auscultation bilaterally, nonlabored breathing Cardio: regular rate, regular rhythm with S1-S2 Abdomen: nondistended, normoactive bowel sounds, soft, nontender to palpation Extremities: no edema, erythema, or tenderness to palpation, DP pulses 2+ bilaterally Skin: no rashes or lesions, warm and dry Psych: appropriate mood and affect, judgment and insight intact Objective Data Vital Signs Vital Signs: Vital Signs - 24 hr 09/09/21 15:55 09/09/21 19:20 09/09/21 20:14 Temperature 97 F L Pulse Rate 71 59 L 68 Respiratory Rate 18 18 18 Blood Pressure 138/101 H 125/78 141/88 H Pulse Oximetry 98 98 99 Oxygen Delivery 09/09/21 20:40 09/10/21 05:56 09/10/21 10:01 Temperature 97.8 F 98.1 F Pulse Rate 64 63 Respiratory Rate 18 18 Blood Pressure 123/93 H 121/85 Pulse Oximetry 98 97 97 Oxygen Delivery Room Air Intake/Output Intake/Output: Intake & Output 09/07/21 09/08/21 09/09/21 09/10/21 23:59 23:59 23:59 23:59 Intake Total 1810 Balance 1810 Meds/Results Medications: Active Medications Generic Name Dose Route Start Last Admin Trade Name Konradq PRN Reason Stop Dose Admin Polyethylene Glycol/Electrolytes 4,000 ml 09/11/21 14:00 Peg (High)/E-Lyte Soln 4,000 Ml Btl PO 09/11/21 14:01 ONCE ONE Radiology Results: ITS Impressions Enema w/Water Soluble 09/10/21 12:46 IMPRESSION: Retained fecal material within the colon which prevents exclusion of polyps or masses. Colonoscopy is strongly recommended. Mild sigmoid colon diverticu
[2021-09-10 21:00] VITALS: BP 123/85; PULSE 66; RESP 17; TEMP 37.1; O2SAT 98
[2021-09-11 05:41] VITALS: BP 113/80; PULSE 69; RESP 17; TEMP 36.9; O2SAT 98
[2021-09-11 06:24] LABS: Basophils Absolute Auto 0.1 K/mm3 (0.0-0.1); Basophils Percent Auto 0.9 % (0.2-1.2); Eosinophils Absolute Auto 0.1 K/mm3 (0-0.3); Eosinophils Percent Auto 2.4 % (0-4.4); Hemoglobin 14.6 g/dL (14.0-18.0); Immature Granulocyte Absolute 0.01 K/mm3 (0.00-0.031); Immature Granulocyte Percent A 0.2 % (0-0.5); Lymphocytes Absolute Auto 1.85 K/mm3 (0.9-3.2); Lymphocytes Percent Auto 32.1 % (18.3-44.2); Mean Corpuscular Hemoglobin 30.8 pg (26-34); Mean Corpuscular Volume 90.7 fl (80-100); Mean Platelet Volume 10.5 fl (7.4-10.4); Monocytes Absolute Auto 0.5 K/mm3 (0.1-0.6); Monocytes Percent Auto 8.1 % (2.6-8.5); Neutrophils Absolute Auto 3.3 K/mm3 (1.3-6.7); Neutrophils Percent Auto 56.3 % (45.5-73.1); Platelet Count Result 255 k/mm3 (150-375); Red Blood Count 4.74 M/mm3 (4.6-6.20); Red Cell Distribution Width 11.9 % (11.5-14.5); White Blood Count 5.8 K/mm3 (4.5-10.0)
[2021-09-11 06:48] LABS: Alanine Aminotransferase 41 U/L (6-50); Alkaline Phosphatase 93 U/L (38-126); Anion Gap 5 mmol/L (8-16); Aspartate Amino Transferase 28 U/L (17-59); Bilirubin,Total 0.7 mg/dL (0.2-1.3); Blood Urea Nitrogen 10 mg/dL (9-20); Calcium 8.9 mg/dL (8.4-10.2); Carbon Dioxide 27 mmol/L (22-30); Chloride 104 mmol/L (98-107); Estimated CRCL calculation 95 ml/min; Estimated Glomerular Filt Rate > 60; Glucose 103 mg/dL (65-110); Sodium 136 mmol/L (137-145)
[2021-09-11 07:15] LABS: Carcinoembryonic Antigen 4.1 ng/mL (0.0-3.0)
--- NOTE | 2021-09-11 09:55 | WPDGIPROGNO ---
Progress Note: A&P Assessment and Plan (1) Intussusception of colon: Code(s): K56.1 - Intussusception Status: Acute Assessment and Plan: CT scan suggest intussusception of the colon with question of a transverse colon mass. Clinically patient only has diarrhea and occasional cramping. Appreciate surgical input. CEA level essentially normal but was 4.1 reported is mildly high. Gastrografin lower GI limited by stool. Plan to give patient colon prep today and colonoscopy in the morning. (2) Abnormal CT of the abdomen: Code(s): R93.5 - Abnormal findings on diagnostic imaging of other abdominal regions, including retroperitoneum Status: Acute Assessment and Plan: CT scan suggest possible intussusception and transverse colon mass. Will plan colonoscopy to assess more thoroughly. (3) Diarrhea: Code(s): R19.7 - Diarrhea, unspecified Status: Acute Assessment and Plan: Patient complains of diarrhea. Outpatient workup negative for this today to aside from findings on CT scan. Subjective Date/time seen: 09/11/21 09:55 Patient alert comfortable this morning. Tolerating liquid diet with no difficulties. Denies significant abdominal pain present. Complains of diarrhea stools. Review of Systems Review of Systems: Review of systems noncontributory. Exam Narrative: Physical exam reveals patient be alert. Afebrile. He is anicteric. Lungs are clear. Heart without murmur. Abdomen bowel sounds are present abdomen is soft flat nontender no masses. No tenderness. Objective Data Vital Signs Vital Signs: Vital Signs - 24 hr 09/10/21 10:01 09/10/21 14:00 09/10/21 21:00 Temperature 98.3 F 98.7 F Pulse Rate 64 66 Respiratory Rate 20 17 Blood Pressure 115/86 123/85 Pulse Oximetry 97 97 98 Oxygen Delivery Room Air 09/10/21 20:00 09/11/21 05:41 Temperature 98.4 F Pulse Rate 69 Respiratory Rate 17 Blood Pressure 113/80 Pulse Oximetry 98 Oxygen Delivery Room Air Intake/Output Intake/Output: Intake & Output 09/08/21 09/09/21 09/10/21 09/11/21 23:59 23:59 23:59 23:59 Intake Total 4330 550 Output Total 4 Balance 4326 550 Meds/Results Medications: Active Medications Generic Name Dose Route Start Last Admin Trade Name Freq PRN Reason Stop Dose Admin Polyethylene Glycol/Electrolytes 4,000 ml 09/11/21 14:00 Peg (High)/E-Lyte Soln 4,000 Ml Btl PO 09/11/21 14:01 ONCE ONE Radiology Results: ITS Impressions Enema w/Water Soluble 09/10/21 12:46 IMPRESSION: Retained fecal material within the colon which prevents exclusion of polyps or masses. Colonoscopy is strongly recommended. Mild sigmoid colon diverticulosis Labs Labs: Laboratory Results - last 24 hr 09/11/21 09/11/21 05:24 05:24 WBC 5.8 RBC 4.74 Hgb 14.6 Hct 43.0 MCV 90.7 MCH 30.8 MCHC 34.0 RDW 11.9 Plt Count 255 MPV 10.5 H Immature Gran % (Auto) 0.2 Neut % (Auto) 56.3 Lymph % (Auto) 32.1 [place] % (Auto) 8.1 Eos % (Auto) 2.4 Baso % (Auto) 0.9 Lymph # (Auto) 1.85 [place] # (Auto) 0.5 Eos # (Auto) 0.1 Baso # (Auto) 0.1 Abs Immat Gran (auto) 0.01 Absolute Neuts (auto) 3.3 Absolute Nucleated RBC 0.0 Nucleated RBC % 0.0 Sodium 136 L Potassium 4.0 Chloride 104 Carbon Dioxide 27 Anion Gap 5 L BUN 10 Creatinine 0.90 Estim Creat Clear Calc 95 Estimated GFR > 60 Glucose 103 Calcium 8.9 Total Bilirubin 0.7 AST 28 ALT 41 Alkaline Phosphatase 93 Total Protein 7.0 Albumin 4.0 Carcinoembryonic Ag 4.1 H Amg Follow-up Billing Inpatient Follow-up [id number] [facility]
--- NOTE | 2021-09-11 12:59 | PM.PNGS ---
Progress Note: A&P Assessment and Plan (1) Intussusception of colon: Code(s): K56.1 - Intussusception Status: Acute Assessment and Plan: Reviewed Hypaque enema and CEA level results with patient. Await colonoscopy results. Will discuss timing of surgery after reviewing colonoscopy and/or biopsy results. (2) Abnormal CT of the abdomen: Code(s): R93.5 - Abnormal findings on diagnostic imaging of other abdominal regions, including retroperitoneum Status: Acute (3) Blood in stool: Code(s): K92.1 - Melena Status: Acute (4) Diarrhea: Code(s): R19.7 - Diarrhea, unspecified Status: Acute Subjective Subjective Date/Time Seen: 09/11/21 12:59 Interval history: Doing well today. No abdominal pain. Tolerating clears. Exam GI: Inspection: non-distended GI Palp: Yes Soft to palpation, No Tenderness to palpation present (GI), No Guarding due to palpation present (GI) and No Palpable mass present Auscultation: normal bowel sounds Objective Data Vital Signs Vital Signs: Vital Signs - 24 hr 09/10/21 14:00 09/10/21 21:00 09/10/21 20:00 Temperature 36.8 C 37.1 C Pulse Rate 64 66 Respiratory Rate 20 17 Blood Pressure 115/86 123/85 Pulse Oximetry 97 98 Oxygen Delivery Room Air 09/11/21 05:41 Temperature 36.9 C Pulse Rate 69 Respiratory Rate 17 Blood Pressure 113/80 Pulse Oximetry 98 Oxygen Delivery Intake/Output Intake/Output: Intake & Output 09/08/21 09/09/21 09/10/21 09/11/21 23:59 23:59 23:59 23:59 Intake Total 4330 1030 Output Total 4 Balance 4326 1030 Meds/Results Medications: Active Medications Generic Name Dose Route Start Last Admin Trade Name Freq PRN Reason Stop Dose Admin Polyethylene Glycol/Electrolytes 4,000 ml 09/11/21 14:00 Peg (High)/E-Lyte Soln 4,000 Ml Btl PO 09/11/21 14:01 ONCE ONE Radiology Results: ITS Impressions Enema w/Water Soluble 09/10/21 12:46 IMPRESSION: Retained fecal material within the colon which prevents exclusion of polyps or masses. Colonoscopy is strongly recommended. Mild sigmoid colon diverticulosis Labs Labs: Laboratory Results - last 24 hr 09/11/21 09/11/21 05:24 05:24 WBC 5.8 RBC 4.74 Hgb 14.6 Hct 43.0 MCV 90.7 MCH 30.8 MCHC 34.0 RDW 11.9 Plt Count 255 MPV 10.5 H Immature Gran % (Auto) 0.2 Neut % (Auto) 56.3 Lymph % (Auto) 32.1 [place] % (Auto) 8.1 Eos % (Auto) 2.4 Baso % (Auto) 0.9 Lymph # (Auto) 1.85 [place] # (Auto) 0.5 Eos # (Auto) 0.1 Baso # (Auto) 0.1 Abs Immat Gran (auto) 0.01 Absolute Neuts (auto) 3.3 Absolute Nucleated RBC 0.0 Nucleated RBC % 0.0 Sodium 136 L Potassium 4.0 Chloride 104 Carbon Dioxide 27 Anion Gap 5 L BUN 10 Creatinine 0.90 Estim Creat Clear Calc 95 Estimated GFR > 60 Glucose 103 Calcium 8.9 Total Bilirubin 0.7 AST 28 ALT 41 Alkaline Phosphatase 93 Total Protein 7.0 Albumin 4.0 Carcinoembryonic Ag 4.1 H Quality VTE Prophylaxis VTE prophylaxis: pharmacologic ordered
[2021-09-11 14:00] VITALS: BP 129/83; PULSE 73; RESP 20; TEMP 37; O2SAT 97
--- NOTE | 2021-09-11 14:42 | PM.IMPN ---
Progress Note: A&P Assessment and Plan (1) Intussusception of colon: Code(s): K56.1 - Intussusception Status: Acute Assessment and Plan: CT of abdomen/pelvis revealed intussusception involving transverse colon with suspected mass as lead point Bowel wall thickening on imaging concerning for malignancy CEA is just slightly elevated at 4.1 Appreciate general surgery and Gastroenterology consultation Planning for colonoscopy tomorrow for further evaluation of the colon and biopsy of possible mass Hypaque enema done 09/10/21; limited due to stool Continue clear liquid diet (2) Diarrhea: Code(s): R19.7 - Diarrhea, unspecified Status: Acute Assessment and Plan: Ongoing issue Appreciate gastroenterology consultation [place] to be related to CT findings Colonoscopy tomorrow (3) Blood in stool: Code(s): K92.1 - Melena Status: Acute Assessment and Plan: Patient describes intermittent specks of bright red blood in his stool No active bleeding at this time H&H stable Planning for colonoscopy as above Subjective Date/time seen: 09/11/21 14:42 Interval history: Date of service: 09/11/2019 Russell Vang is a 56-year-old male ongoing diarrhea abdominal pain for 1 year recently established with Gastroenterology who is seen in follow-up for intussusception and suspected colonic mass. He is feeling in his usual state of health today. He has no abdominal pain. He has had about 6 episodes of watery bowel movements today, which is typical for him. He denies melena or hematochezia. He is tolerating clear liquids. He denies nausea or vomiting. Denies shortness breath, cough, chest pain, fever, chills, dizziness, lightheadedness. Patient admits to being stressed regarding his hospitalization and concerns of possible diagnoses. He has a 15 month old son at home and he is disappointed he is not able to see him while he is here in the hospital. Review of Systems Review of Systems: All systems reviewed & are unremarkable except as noted in HPI and below Exam Narrative: General: Well-nourished, well-appearing 56-year-old male, sitting up at the bedside, comfortable, NARD Neuro: awake, alert and oriented x4, speech clear, no focal neuro deficits noted HEENMT: normocephalic, atraumatic, EOMI, sclerae anicteric Respiratory: clear to auscultation bilaterally, nonlabored breathing Cardio: regular rate, regular rhythm with S1-S2 Abdomen: nondistended, normoactive bowel sounds, soft, nontender to palpation Extremities: no edema, erythema, or tenderness to palpation Skin: no rashes or lesions, warm and dry Psych: appropriate mood and affect, judgment and insight intact Objective Data Vital Signs Vital Signs: Vital Signs - 24 hr 09/10/21 21:00 09/10/21 20:00 09/11/21 05:41 Temperature 98.7 F 98.4 F Pulse Rate 66 69 Respiratory Rate 17 17 Blood Pressure 123/85 113/80 Pulse Oximetry 98 98 Oxygen Delivery Room Air Intake/Output Intake/Output: Intake & Output 09/08/21 09/09/21 09/10/21 09/11/21 23:59 23:59 23:59 23:59 Intake Total 4330 1030 Output Total 4 Balance 4326 1030 Meds/Results Radiology Results: ITS Impressions Enema w/Water Soluble 09/10/21 12:46 IMPRESSION: Retained fecal material within the colon which prevents exclusion of polyps or masses. Colonoscopy is strongly recommended. Mild sigmoid colon diverticulosis Labs Labs: Laboratory Results - last 24 hr 09/11/21 09/11/21 05:24 05:24 WBC 5.8 RBC 4.74 Hgb 14.6 Hct 43.0 MCV 90.7 MCH 30.8 MCHC 34.0 RDW 11.9 Plt Count 255 MPV 10.5 H Immature Gran % (Auto) 0.2 Neut % (Auto) 56.3 Lymph % (Auto) 32.1 [place] % (Auto) 8.1 Eos % (Auto) 2.4 Baso % (Auto) 0.9 Lymph # (Auto) 1.85 [place] # (Auto) 0.5 Eos # (Auto) 0.1 Baso # (Auto) 0.1 Abs Immat Gran (auto) 0.01 Absolute Neuts (auto) 3.3 Absolute Nu
[2021-09-11] MEDS: PEG (High)/E-LYTE SOLN 4,000 ML BTL 4000 ML PO (19:30)
[2021-09-11 20:00] VITALS: PULSE 73; RESP 20; O2SAT 97
[2021-09-11 21:55] VITALS: BP 126/85; PULSE 62; RESP 17; TEMP 36.7; O2SAT 98
[2021-09-12] VITALS (9 sets, daily range): BP systolic 99–136; BP diastolic 30–89; PULSE 59–74; RESP 15–21; TEMP 36.3–37.1; O2SAT 98–100
[2021-09-12] MEDS: LACTATED RINGERS 1,000 ML 150 ML IV CONT (09:32)
--- NOTE | 2021-09-12 09:48 | WPDHPUPDATE1 ---
History and Physical Update Update Date/Time: 09/12/21 09:48 History and Physical has been reviewed, including an updated exam of the patient. There are NO changes in the patient's condition. Risks, benefits, and alternatives have been discussed and questions answered. Patient agrees to proceed with procedure.
--- NOTE | 2021-09-12 10:09 | P.PNAN_ITS ---
Anes - Initial Pre Proc Eval Procedure: Operation Date: 09/12/21 13:30 Proposed Procedures p Colonoscopy - Pietro Pepe MD Date/Time: 09/12/21 10:09 Surgeon: Vianey Vizcarra PA-C Pre Op Diagnosis: intussusception with thickening of transverse colo Patient Data Age: 56 Gender: M Height: 1.78 m Weight: 97.3 kg Last Vital Signs Temp 97.3 F L 09/12/21 09:30 Pulse 69 09/12/21 09:30 Resp 18 09/12/21 09:30 BP 136/89 09/12/21 09:30 Pulse Ox 99 09/12/21 09:30 O2 Del Method Room Air 09/12/21 09:30 Allergies Allergy/AdvReac Type Severity Reaction Status Date / Time Penicillins Allergy Fever Verified 09/12/21 09:28 Home Medications Medication Instructions Recorded Confirmed Type dicyclomine 10 mg capsule 20 mg PO TID PRN abdominal 09/09/21 09/09/21 History discomfort Patient hx anesthesia problems: none Family hx anesthesia problems: none Results Review: All pre-operative results and documents have been reviewed as part of the pre- operative evaluation. [facility] Past Medical History Medical History Bloating Blood in stool Diarrhea Elevated liver enzymes Healthy adult male Left lower quadrant pain Obese Surgical History Surgical History History of orthopedic surgery Social History Social History Smoking status: Never smoker Alcohol intake: current Drinks per week: 12 Substance use: never Spiritual care concerns: No Anes - Eval Final PreProcedure Day of Procedure 09/12/21 10:09 Patient weight: overweight Heart: regular rate and rhythm Lungs: clear to auscultation Airway: Mallampati scale class II Neurological: alert and oriented Last oral intake: >/= 8 hours ASA classification: II Emergent: no Anesthetic plan: proceed Anesthesia type and monitoring: general GIVS and standard monitoring Results Review: All pre-operative results and documents have been reviewed as part of the pre- operative evaluation. Informed Consent: The patient's anesthetic plan and its attendant risks and benefits were discussed with the patient/family/POA. Questions were solicited and answers provided to the satisfaction of the patient/family/POA.
--- NOTE | 2021-09-12 14:07 | PM.IMPN ---
Progress Note: A&P Assessment and Plan (1) Intussusception of colon: Code(s): K56.1 - Intussusception Status: Acute Assessment and Plan: CT of abdomen/pelvis revealed intussusception involving transverse colon with suspected mass as lead point Bowel wall thickening on imaging concerning for malignancy CEA is just slightly elevated at 4.1 Appreciate general surgery and Gastroenterology consultation Hypaque enema done 09/10/21; limited due to stool Continue clear liquid diet (2) Colonic mass: Code(s): K63.89 - Other specified diseases of intestine Status: Acute Assessment and Plan: Colonoscopy completed today with 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 Continue to monitor Subjective Date/time seen: 09/12/21 14:07 Interval history: Date of service: 09/11/2019 Russell Vang is a 56-year-old male ongoing diarrhea abdominal pain for 1 year recently established with Gastroenterology who is seen in follow-up for intussusception and suspected colonic mass. He is feeling in his usual state of health today. He has no abdominal pain. He has had about 6 episodes of watery bowel movements today, which is typical for him. He denies melena or hematochezia. He is tolerating clear liquids. He denies nausea or vomiting. Denies shortness breath, cough, chest pain, fever, chills, dizziness, lightheadedness. Patient admits to being stressed regarding his hospitalization and concerns of possible diagnoses. He has a 15 month old son at home and he is disappointed he is not able to see him while he is here in the hospital. Exam Narrative: General: Well-nourished, well-appearing 56-year-old male, sitting up at the bedside, comfortable, NARD Neuro: awake, alert and oriented x4, speech clear, no focal neuro deficits noted HEENMT: normocephalic, atraumatic, EOMI, sclerae anicteric Respiratory: clear to auscultation bilaterally, nonlabored breathing Cardio: regular rate, regular rhythm with S1-S2 Abdomen: nondistended, normoactive bowel sounds, soft, nontender to palpation Extremities: no edema, erythema, or tenderness to palpation Skin: no rashes or lesions, warm and dry Psych: appropriate mood and affect, judgment and insight intact Objective Data Vital Signs Vital Signs: Vital Signs - 24 hr 09/11/21 20:00 09/11/21 21:55 09/12/21 06:00 Temperature 98.0 F 97.9 F Pulse Rate 73 62 59 L Respiratory Rate 20 17 17 Blood Pressure 126/85 119/77 Pulse Oximetry 97 98 98 Oxygen Delivery Room Air 09/12/21 09:30 09/12/21 10:42 09/12/21 10:52 Temperature 97.3 F L Pulse Rate 69 66 63 Respiratory Rate 18 21 H 15 Blood Pressure 136/89 99/61 L 99/30 L Pulse Oximetry 99 100 100 Oxygen Delivery Room Air Room Air Room Air 09/12/21 11:02 09/12/21 12:45 Temperature 98.1 F Pulse Rate 65 74 Respiratory Rate 15 16 Blood Pressure 115/76 136/86 Pulse Oximetry 100 100 Oxygen Delivery Room Air Intake/Output Intake/Output: Intake & Output 09/09/21 09/10/21 09/11/21 09/12/21 23:59 23:59 23:59 23:59 Intake Total 5330 3430 0 Output Total 4 Balance 5326 3430 0 Meds/Results Medications: Active Medications Generic Name Dose Route Start Last Admin Trade Name Freq PRN Reason Stop Dose Admin Acetaminophen 1,000 mg in 100 mls @ 400 mls/hr 09/12/21 11:42 Ofirmev 1
--- NOTE | 2021-09-12 18:54 | PM.PNGS ---
Progress Note: A&P Assessment and Plan (1) Intussusception of colon: Code(s): K56.1 - Intussusception Status: Acute Assessment and Plan: I reviewed the findings of colonoscopy and discussed with Dr. Pepe. Patient has a large polyp/mass that is the likely lead point for intussusception. This was to large to remove endoscopically. I have recommended proceeding with hand assisted laparoscopic left hemicolectomy, possible open. I discussed the procedure, risks, benefits, and alternatives. Questions answered. Will proceed with surgery tomorrow. Patient already prepped. Will allow clear liquids tonight and prepare for surgery tomorrow. (2) Abnormal CT of the abdomen: Code(s): R93.5 - Abnormal findings on diagnostic imaging of other abdominal regions, including retroperitoneum Status: Acute (3) Blood in stool: Code(s): K92.1 - Melena Status: Acute (4) Diarrhea: Code(s): R19.7 - Diarrhea, unspecified Status: Acute Subjective Subjective Date/Time Seen: 09/12/21 11:45 Interval history: Patient doing well after colonoscopy. No abdominal pain. Exam GI: GI Palp: Yes Soft to palpation, No Tenderness to palpation present (GI), No Guarding due to palpation present (GI) and Yes Hernia present (umbilical) Objective Data Vital Signs Vital Signs: Vital Signs - 24 hr 09/11/21 20:00 09/11/21 21:55 09/12/21 06:00 Temperature 36.7 C 36.6 C Pulse Rate 73 62 59 L Respiratory Rate 20 17 17 Blood Pressure 126/85 119/77 Pulse Oximetry 97 98 98 Oxygen Delivery Room Air 09/12/21 09:30 09/12/21 10:42 09/12/21 10:52 Temperature 36.3 C L Pulse Rate 69 66 63 Respiratory Rate 18 21 H 15 Blood Pressure 136/89 99/61 L 99/30 L Pulse Oximetry 99 100 100 Oxygen Delivery Room Air Room Air Room Air 09/12/21 11:02 09/12/21 12:45 09/12/21 14:00 Temperature 36.7 C 37.1 C Pulse Rate 65 74 68 Respiratory Rate 15 16 16 Blood Pressure 115/76 136/86 114/79 Pulse Oximetry 100 100 100 Oxygen Delivery Room Air Intake/Output Intake/Output: Intake & Output 09/09/21 09/10/21 09/11/21 09/12/21 23:59 23:59 23:59 23:59 Intake Total 5330 3430 780 Output Total 4 Balance 5326 3430 780 Meds/Results Medications: Active Medications Generic Name Dose Route Start Last Admin Trade Name Freq PRN Reason Stop Dose Admin Acetaminophen 650 mg 09/12/21 14:10 Acetaminophen 325 Mg Tablet PO Q4H PRN Mild Pain (1-3) Acetaminophen 1,000 mg 09/13/21 12:00 Acetaminophen 500 Mg Tablet PO 09/13/21 12:01 ONCE ONE Cefazolin Sodium 2 gm in 50 mls @ 100 mls/hr 09/13/21 11:00 Ancef 2 Gm/D5w 50 Ml IVPB 09/13/21 11:29 ONCE ONE Metronidazole 500 mg in 100 mls @ 100 mls/hr 09/13/21 11:00 Flagyl 500 Mg/Iso Soln 100 Ml IVPB 09/13/21 11:59 ONCE ONE Ketorolac Tromethamine 15 mg 09/13/21 12:00 Ketorolac 15 Mg/Ml Vial (*Bkc) IV PUSH 09/13/21 12:01 ONCE ONE Radiology Results: ITS Impressions Enema w/Water Soluble 09/10/21 12:46 IMPRESSION: Retained fecal material within the colon which prevents exclusion of polyps or masses. Colonoscopy is strongly recommended. Mild sigmoid colon diverticulosis Quality VTE Prophylaxis VTE prophylaxis: mechanical ordered
[2021-09-13] VITALS (14 sets, daily range): BP systolic 108–129; BP diastolic 59–76; PULSE 67–96; RESP 12–18; TEMP 36.1–37.1; O2SAT 93–100
[2021-09-13] MEDS: CHLORHEXIDINE GLUCONATE 4% SOL 120 ML BTL 1 APPLIC TOPICAL (02:56)
[2021-09-13 06:15] LABS: Hematocrit 40.1 % (42.0-52.0); Hemoglobin 13.6 g/dL (14.0-18.0)
[2021-09-13 06:23] LABS: Anion Gap 8 mmol/L (8-16); Blood Urea Nitrogen 8 mg/dL (9-20); Calcium 8.8 mg/dL (8.4-10.2); Carbon Dioxide 26 mmol/L (22-30); Chloride 103 mmol/L (98-107); Estimated CRCL calculation 95 ml/min; Estimated Glomerular Filt Rate > 60; Glucose 103 mg/dL (65-110); Potassium 3.8 mmol/L (3.4-5.0); Sodium 137 mmol/L (137-145)
--- NOTE | 2021-09-13 08:22 | PM.IMPN ---
Progress Note: A&P Assessment and Plan (1) Intussusception of colon: Code(s): K56.1 - Intussusception Status: Acute Assessment and Plan: CT of abdomen/pelvis revealed intussusception involving transverse colon with suspected mass as lead point Initial imaging reports concerning for malignancy. CEA is just slightly elevated at 4.1 Appreciate general surgery and Gastroenterology consultation Hypaque enema done 09/10/21; limited due to stool Colonoscopy revealed partially obstructing mass. See below (2) Colonic mass: Code(s): K63.89 - Other specified diseases of intestine Status: Acute Assessment and Plan: Colonoscopy done 09/12/21 with 7 cm villous mass of the proximal transverse colon Biopsies pending Mass was too large for endoscopic removal. Planning for hand assisted laparoscopic left hemicolectomy this afternoon Appreciate general surgery and Gastroenterology management (3) Diarrhea: Code(s): R19.7 - Diarrhea, unspecified Status: Acute Assessment and Plan: Ongoing issue Appreciate gastroenterology consultation [place] to be related to colonic mass and intussusception (4) Blood in stool: Code(s): K92.1 - Melena Status: Acute Assessment and Plan: Patient describes intermittent specks of bright red blood in his stool Likely due to colonic mass No active bleeding at this time H&H stable. Continue to monitor Subjective Date/time seen: 09/13/21 08:22 Interval history: Date of service: 09/12/2019 Russell Vang is a 56-year-old male ongoing diarrhea abdominal pain for 1 year recently established with Gastroenterology who is seen in follow-up for intussusception secondary to colonic mass. he is doing well today. He has surgery scheduled for this afternoon. He admits to feeling stressed about his upcoming surgery but is in good spirits. He denies abdominal pain, nausea, vomiting. Denies shortness breath, cough or chest pain. Review of Systems Review of Systems: All systems reviewed & are unremarkable except as noted in HPI and below Exam Narrative: General: Well-nourished, well-appearing 56-year-old male, sitting up at the bedside, comfortable, NARD Neuro: awake, alert and oriented x4, speech clear, no focal neuro deficits noted HEENMT: normocephalic, atraumatic, EOMI, sclerae anicteric Respiratory: clear to auscultation bilaterally, nonlabored breathing Cardio: regular rate, regular rhythm with S1-S2 Abdomen: nondistended, soft, nontender to palpation Extremities: no edema, erythema, or tenderness to palpation Skin: no rashes or lesions, warm and dry Psych: appropriate mood and affect, judgment and insight intact Objective Data Vital Signs Vital Signs: Vital Signs - 24 hr 09/12/21 09:30 09/12/21 10:42 09/12/21 10:52 Temperature 97.3 F L Pulse Rate 69 66 63 Respiratory Rate 18 21 H 15 Blood Pressure 136/89 99/61 L 99/30 L Pulse Oximetry 99 100 100 Oxygen Delivery Room Air Room Air Room Air 09/12/21 11:02 09/12/21 12:45 09/12/21 14:00 Temperature 98.1 F 98.7 F Pulse Rate 65 74 68 Respiratory Rate 15 16 16 Blood Pressure 115/76 136/86 114/79 Pulse Oximetry 100 100 100 Oxygen Delivery Room Air 09/12/21 20:00 09/12/21 21:26 09/13/21 05:27 Temperature 97.8 F 97.8 F Pulse Rate 68 60 68 Respiratory Rate 16 18 18 Blood Pressure 126/78 108/74 Pulse Oximetry 100 100 98 Oxygen Delivery Room Air 09/13/21 08:08 Temperature Pulse Rate Respiratory Rate Blood Pressure Pulse Oximetry 98 Oxygen Delivery Room Air Intake/Output Intake/Output: Intake & Output 09/10/21 09/11/21 09/12/21 09/13/21 23:59 23:59 23:59 23:59 Intake Total 5330 3430 780 550 Output Total 4 Balance 5326 3430 780 550 Meds/Results Medications: Active Medications Generic Name Dose Route Start Last Admin Trade Name Freq PRN Reason Stop Dose Admin Acetaminophen 650 mg 09/12/21 14:10
--- NOTE | 2021-09-13 11:57 | PC.NURSE ---
pt states that he is not in pain this morning. pt has a scheduled lap hemicolectomy at 1pm. pt is ready to get procedure done and over with. very pleasant. surgery stated that they will pick him up at 1230.
--- NOTE | 2021-09-13 12:37 | WPDHPUPDATE1 ---
History and Physical Update Update Date/Time: 09/13/21 12:37 History and Physical has been reviewed, including an updated exam of the patient. There are NO changes in the patient's condition. Risks, benefits, and alternatives have been discussed and questions answered. Patient agrees to proceed with procedure.
[2021-09-13] MEDS: LACTATED RINGERS 1,000 ML 30 ML IV CONT ×2 (13:23→18:43)
[2021-09-13] MEDS: ACETAMINOPHEN 500 MG TABLET 1000 MG PO ×2 (13:26→20:56)
[2021-09-13] MEDS: KETOROLAC 15 MG/ML VIAL (*BKC) IV PUSH (13:26)
--- NOTE | 2021-09-13 13:51 | WPDANESEPPF ---
Anes - Initial Pre Proc Eval Procedure: Operation Date: 09/12/21 13:30 Proposed Procedures p Colonoscopy - Pietro Pepe MD Operation Date: 09/13/21 13:00 Proposed Procedures p Hand Assisted Laparoscopic Left Hemicolectomy - Jaya Spencer DO Date/Time: 09/13/21 13:51 Surgeon: Vianey Vizcarra PA-C Pre Op Diagnosis: intussusception with thickening of transverse colo Patient Data Age: 56 Gender: M Height: 1.78 m Weight: 97.3 kg Last Vital Signs Temp 37.1 C 09/13/21 13:05 Pulse 67 09/13/21 13:05 Resp 18 09/13/21 13:05 BP 129/74 09/13/21 13:05 Pulse Ox 98 09/13/21 13:05 O2 Del Method Room Air 09/13/21 13:05 Allergies Allergy/AdvReac Type Severity Reaction Status Date / Time Penicillins Allergy Fever Verified 09/12/21 09:28 Home Medications Medication Instructions Recorded Confirmed Type dicyclomine 10 mg capsule 20 mg PO TID PRN abdominal 09/09/21 09/09/21 History discomfort Laboratory Tests 09/13/21 09/13/21 09/13/21 05:40 05:40 05:40 Hgb 13.6 g/dL L g/dL (14.0-18.0) Hct 40.1 % L % (42.0-52.0) Sodium 137 mmol/L mmol/L (137-145) Potassium 3.8 mmol/L mmol/L (3.4-5.0) Chloride 103 mmol/L mmol/L (98-107) Carbon Dioxide 26 mmol/L mmol/L (22-30) Anion Gap 8 mmol/L mmol/L (8-16) BUN 8 mg/dL L mg/dL (9-20) Creatinine 0.90 mg/dL mg/dL (0.7-1.3) Estim Creat Clear Calc 95 ml/min ml/min Estimated GFR > 60 (59 - ) Glucose 103 mg/dL mg/dL (65-110) Calcium 8.8 mg/dL mg/dL (8.4-10.2) Blood Type A Positive Antibody Screen Negative Patient hx anesthesia problems: none Family hx anesthesia problems: none Results Review: All pre-operative results and documents have been reviewed as part of the pre-operative evaluation. [facility] Past Medical History Medical History Bloating Blood in stool Diarrhea Elevated liver enzymes Healthy adult male Left lower quadrant pain Obese Surgical History Surgical History History of orthopedic surgery Social History Social History Smoking status: Never smoker Alcohol intake: current Drinks per week: 12 Substance use: never Spiritual care concerns: No Anes - Eval Final PreProcedure Day of Procedure 09/13/21 13:51 Patient weight: overweight Heart: regular rate and rhythm Lungs: clear to auscultation Airway: Mallampati scale class II Neurological: alert and oriented Last oral intake: >/= 8 hours ASA classification: III Emergent: no Anesthetic plan: proceed Anesthesia type and monitoring: general ETT and standard monitoring Results Review: All pre-operative results and documents have been reviewed as part of the pre-operative evaluation. Informed Consent: The patient's anesthetic plan and its attendant risks and benefits were discussed with the patient/family/POA. Questions were solicited and answers provided to the satisfaction of the patient/family/POA.
--- NOTE | 2021-09-13 14:08 | WPDANESPN ---
Anes - Prog Note Post-Op Date/Time: 09/13/21 14:08 Cardiovascular status: normal Respiratory status: normal Airway patency: baseline Mental status: baseline Post-Op hydration status: normal Vital Signs: Last Vital Signs Temp 98.8 F 09/13/21 13:05 Pulse 67 09/13/21 13:05 Resp 18 09/13/21 13:05 BP 129/74 09/13/21 13:05 Pulse Ox 98 09/13/21 13:05 O2 Del Method Room Air 09/13/21 13:05 Pain Score (VAS): 0/10 I/O: Intake & Output 09/12/21 09/13/21 09/13/21 23:59 07:59 15:59 Intake Total 540 550 240 Balance 540 550 240 Laboratory Tests 09/13/21 05:40 09/13/21 05:40 09/13/21 09/13/21 09/13/21 05:40 05:40 05:40 Hgb 13.6 L Hct 40.1 L Sodium 137 Potassium 3.8 Chloride 103 Carbon Dioxide 26 Anion Gap 8 BUN 8 L Creatinine 0.90 Estim Creat Clear Calc 95 Estimated GFR > 60 Glucose 103 Calcium 8.8 Blood Type A Positive Antibody Screen Negative Post-procedural complaints: none Patient Feedback: Patient satisfied with anesthetic care.
[2021-09-13] MEDS: ceFAZolin 2 GM/D5W 50 ML 2 GM/50 ML BAG IVPB (14:18)
[2021-09-13] MEDS: metroNIDAZOLE 500 MG/ISO 100ML 500 MG/100 ML BAG 100 MG IVPB (14:18)
--- NOTE | 2021-09-13 18:06 | W.PM.PROC2 ---
Procedure Note - Detailed Date of Procedure 09/13/21 Pre-op Diagnosis Intussusception of transverse colon, transverse colon mass Post-op Diagnosis Same Procedure Performed 1. Hand assisted laparoscopic extended right hemicolectomy with ileocolic anastomosis 2. Laparoscopic mobilization of splenic flexure 3. Open umbilical hernia repair Surgeon Jaya Spencer, Anesthesia General and Local (Exparel) Indications This is a 56-year-old man who presented with diarrhea and cramping abdominal pain. He had seen GI and a CT was ordered. This showed evidence of intussusception of the transverse colon likely caused by a mass in the colon. He then underwent colonoscopy by Dr. Pepe on 09/12/2021. This showed evidence of a large mass in the transverse colon. Biopsies were performed and it was tattooed. Discussions were made with the patient about treatment options and decision was made to proceed with hand assisted laparoscopic left hemicolectomy, possible open. Findings Upon inspecting the abdomen laparoscopically, the mass was identified more in the mid transverse colon. The splenic flexure was mobilized to allow for adequate length of the colon to perform the anastomosis. The descending colon was also mobilized from the lateral peritoneal attachments. Even with performing this, the more proximal transverse colon was very tethered and I was finding it difficult to get adequate mobility to perform a left hemicolectomy. The decision was then made to mobilize the cecum and ascending colon and perform an extended right hemicolectomy. A high ligation of the middle colic and ileocolic artery was performed. A [id number] ileocolic anastomosis was then performed. The specimen was sent to the lab for pathology. The patient also had an umbilical hernia which was repaired at the end of the procedure. I placed my hand port incision centered on the umbilicus and umbilical hernia. The hernia sac was excised and the fascia was cleared around the umbilicus to adequately close the fascia to repair the hernia at the end of the procedure. Description of Procedure Procedure as well as risks, benefits, and alternatives were discussed with the patient. Written consent was obtained and placed in chart prior to procedure. Patient was brought back to surgical suite. He was placed supine operating table. Time-out postop confirm patient and procedure. He was then intubated by anesthesia department. His abdomen was prepped and draped in sterile fashion using chlorhexidine prep. A 7 cm vertical midline incision was made centered on the umbilicus using a 15 blade scalpel. Electrocautery was used for hemostasis and for dissection through the subcutaneous tissue. Hernia sac was identified and carefully dissected off of the umbilical stalk using electrocautery. The hernia sac was then excised at the level of the fascia with electrocautery. The peritoneum was entered through the hernia defect. The fascial incision was then extended cephalad and caudad to the hernia using electrocautery. A wound protector was then placed and a GelPort was applied with a 5 mm port placed through this. Carbon dioxide insufflation was then used to create a pneumoperitoneum. The camera was inserted in the abdomen was inspected. The patient was placed in slight Trendelenburg position. Exparel was infiltrated laterally along the abdominal wall on each side. 5 mm ports were then placed under direct visualization in the right lower quadrant, left lower quadrant, and suprapubic region. The abdominal cavity was carefully inspected. The tattooed region on the colon was identified in the mid transverse colon. Initially rotated the patient to the right and carefully took down the lateral peritoneal attachments on the descending colon. The peritoneal attachments were scored with hook electrocautery and then LigaSure bipolar cautery was also used to aid with the assistance of taken down the peritoneal attac
[2021-09-13] MEDS: LACTATED RINGERS 1,000 ML 100 ML IV CONT (20:56)
[2021-09-14] MEDS: ACETAMINOPHEN 500 MG TABLET 1000 MG PO ×4 (03:29→22:34)
[2021-09-14 05:51] VITALS: BP 142/52; PULSE 60; RESP 18; TEMP 36.6; O2SAT 98
[2021-09-14 07:27] LABS: Hematocrit 35.7 % (42.0-52.0); Hemoglobin 12.2 g/dL (14.0-18.0); Mean Corpuscular HGB Conc 34.2 g/dl (32-36); Mean Corpuscular Hemoglobin 31.2 pg (26-34); Mean Corpuscular Volume 91.3 fl (80-100); Mean Platelet Volume 10.7 fl (7.4-10.4); Platelet Count Result 221 k/mm3 (150-375); Red Blood Count 3.91 M/mm3 (4.6-6.20); Red Cell Distribution Width 11.8 % (11.5-14.5); White Blood Count 12.5 K/mm3 (4.5-10.0)
--- NOTE | 2021-09-14 07:33 | WPDGIPROGNO ---
Progress Note: A&P Assessment and Plan (1) Colonic mass: Code(s): K63.89 - Other specified diseases of intestine Status: Acute Assessment and Plan: Patient with transverse colon mass. Now status post right hemicolectomy. Hand assisted laparoscopy was the method use. Hopefully ileus will resolve promptly. Await final histology. Initial biopsies reveal benign villous adenoma with high-grade dysplasia suggesting there may be foci of cancer within this tumor. (2) Intussusception of colon: Code(s): K56.1 - Intussusception Status: Acute Assessment and Plan: Intussusception resolved. related transverse colon mass. Mass now resected. Subjective Date/time seen: 09/14/21 07:33 Patient alert. Somewhat anxious this morning. Had right hemicolectomy for transverse colon mass yesterday. Patient states he feels somewhat bloated and uncomfortable throughout the night. Review of Systems Review of Systems: Review of systems noncontributory. Exam Narrative: Physical exam reveals patient be alert and afebrile. Vital signs stable. HEENT exam reveals no icterus. Lungs are clear. Heart without murmur. Abdomen is somewhat quiet. Periumbilical incision appears to be healing appropriate the. Objective Data Vital Signs Vital Signs: Vital Signs - 24 hr 09/13/21 08:08 09/13/21 13:05 09/13/21 18:43 Temperature 98.8 F 97.7 F Pulse Rate 67 96 Respiratory Rate 18 18 Blood Pressure 129/74 114/72 Pulse Oximetry 98 98 97 Oxygen Delivery Room Air Room Air BiPAP Oxygen Flow Rate Fraction of Inspired Oxygen 100 09/13/21 19:00 09/13/21 19:15 09/13/21 19:30 Temperature Pulse Rate 84 75 80 Respiratory Rate 18 16 12 Blood Pressure 128/76 124/72 120/75 Pulse Oximetry 100 100 93 Oxygen Delivery BiPAP BiPAP Nasal Cannula Oxygen Flow Rate 3 Fraction of Inspired Oxygen 100 100 09/13/21 19:46 09/13/21 18:40 09/13/21 20:06 Temperature 96.9 F L Pulse Rate 84 89 80 Respiratory Rate 13 18 16 Blood Pressure 108/65 119/59 L Pulse Oximetry 93 100 93 Oxygen Delivery Nasal Cannula BiPAP Oxygen Flow Rate 3 Fraction of Inspired Oxygen 09/13/21 20:21 09/13/21 20:51 09/13/21 21:51 Temperature 96.9 F L 97.4 F L 97.0 F L Pulse Rate 79 77 79 Respiratory Rate 16 16 18 Blood Pressure 118/62 127/62 122/68 Pulse Oximetry 93 93 94 Oxygen Delivery Oxygen Flow Rate Fraction of Inspired Oxygen 09/13/21 20:15 09/14/21 05:51 Temperature 97.9 F Pulse Rate 79 60 Respiratory Rate 18 18 Blood Pressure 142/52 H Pulse Oximetry 94 98 Oxygen Delivery Nasal Cannula Oxygen Flow Rate 3 Fraction of Inspired Oxygen 100 Intake/Output Intake/Output: Intake & Output 09/11/21 09/12/21 09/13/21 09/14/21 23:59 23:59 23:59 23:59 Intake Total 3430 780 1490 100 Output Total 4 700 Balance 3430 780 1486 -600 Meds/Results Medications: Active Medications Generic Name Dose Route Start Last Admin Trade Name Freq PRN Reason Stop Dose Admin Acetaminophen 1,000 mg 09/13/21 21:00 09/14/21 03:29 Acetaminophen 500 Mg Tablet PO 1,000 mg Q6H YE Administration Enoxaparin Sodium 40 mg 09/14/21 09:00 Enoxaparin 40 Mg/0.4 Ml Syringe SUB-Q DAILY YE Lactated Ringer's 1,000 mls @ 100 mls/hr 09/13/21 20:06 09/13/21 20:56 Lr - Lactated Ringers Iv IV CONT 100 mls/hr .Q10H YE Administration Morphine Sulfate 2 mg 09/13/21 20:06 Morphine Sulfate (*Crx) 2 Mg/Ml Inj IV PUSH Q2H PRN Pain Rated 4-6 Morphine Sulfate 4 mg 09/13/21 20:06 Morphine Sulfate (*Crx) 4 Mg/Ml Inj IV PUSH Q2H PRN Pain Rated 7-10 Ondansetron HCl 4 mg 09/13/21 20:06 Ondansetron Inj 4 Mg/2 Ml Vial IV PUSH Q4H PRN Nausea And Vomiting Oxycodone HCl 5 mg 09/13/21 20:06 Oxycodone Hcl (*Crx) 5 Mg Tab Ir PO Q4H PRN Pain Rated 4-6 Oxycodone HCl 10 mg 09/13/21 20:06 Oxycodone Hcl (*Crx) 5 Mg Tab Ir PO
[2021-09-14 07:45] LABS: Basophils Percent Auto 0.3 % (0.2-1.2); Immature Granulocyte Absolute 0.03 K/mm3 (0.00-0.031); Immature Granulocyte Percent A 0.2 % (0-0.5); Lymphocytes Absolute Auto 1.08 K/mm3 (0.9-3.2); Lymphocytes Percent Auto 8.6 % (18.3-44.2); Monocytes Absolute Auto 0.7 K/mm3 (0.1-0.6); Monocytes Percent Auto 5.9 % (2.6-8.5); Neutrophils Absolute Auto 10.7 K/mm3 (1.3-6.7)
--- NOTE | 2021-09-14 07:45 | WPDANESPN ---
Anes - Prog Note Post-Op Date/Time: 09/14/21 07:45 Cardiovascular status: normal Respiratory status: normal Airway patency: baseline Mental status: baseline Post-Op hydration status: normal Vital Signs: Last Vital Signs Temp 97.9 F 09/14/21 05:51 Pulse 60 09/14/21 05:51 Resp 18 09/14/21 05:51 BP 142/52 H 09/14/21 05:51 Pulse Ox 98 09/14/21 05:51 O2 Del Method Nasal Cannula 09/13/21 20:15 O2 Flow Rate 3 09/13/21 20:15 FiO2 100 09/13/21 20:15 Pain Score (VAS): 03/17 I/O: Intake & Output 09/13/21 09/13/21 09/14/21 15:59 23:59 07:59 Intake Total 390 550 100 Output Total 4 700 Balance 390 546 -600 Laboratory Tests 09/14/21 06:43 09/14/21 09/14/21 09/14/21 06:43 06:43 07:21 WBC 12.5 H RBC 3.91 L Hgb 12.2 L Hct 35.7 L MCV 91.3 MCH 31.2 MCHC 34.2 RDW 11.8 Plt Count 221 MPV 10.7 H Immature Gran % (Auto) Pending Neut % (Auto) Pending Lymph % (Auto) Pending [place] % (Auto) Pending Eos % (Auto) Pending Baso % (Auto) Pending Lymph # (Auto) Pending [place] # (Auto) Pending Eos # (Auto) Pending Baso # (Auto) Pending Abs Immat Gran (auto) Pending Absolute Neuts (auto) Pending Absolute Nucleated RBC Pending Nucleated RBC % Pending Sodium Cancelled Pending Potassium Cancelled Pending Chloride Cancelled Pending Carbon Dioxide Cancelled Pending Anion Gap Cancelled Pending BUN Cancelled Pending Creatinine Cancelled Pending Estim Creat Clear Calc Cancelled Pending Estimated GFR Cancelled Pending Glucose Cancelled Pending Calcium Cancelled Pending Magnesium Pending Total Bilirubin Pending AST Pending ALT Pending Alkaline Phosphatase Pending Total Protein Pending Albumin Pending Post-procedural complaints: none Patient Feedback: Patient satisfied with anesthetic care.
[2021-09-14 07:51] LABS: Alanine Aminotransferase 41 U/L (6-50); Albumin Level 3.4 g/dL (3.5-5.1); Alkaline Phosphatase 82 U/L (38-126); Anion Gap 4 mmol/L (8-16); Aspartate Amino Transferase 29 U/L (17-59); Bilirubin,Total 0.6 mg/dL (0.2-1.3); Blood Urea Nitrogen 11 mg/dL (9-20); Calcium 8.3 mg/dL (8.4-10.2); Carbon Dioxide 29 mmol/L (22-30); Chloride 103 mmol/L (98-107); Estimated CRCL calculation 95 ml/min; Estimated Glomerular Filt Rate > 60; Glucose 119 mg/dL (65-110); Sodium 136 mmol/L (137-145)
[2021-09-14] MEDS: LACTATED RINGERS 1,000 ML 100 ML IV CONT ×2 (07:57→18:51)
[2021-09-14 08:00] VITALS: BP 122/81; PULSE 72; RESP 16; TEMP 36.4; O2SAT 98
[2021-09-14] MEDS: ENOXAPARIN 40 MG/0.4 ML SYRINGE SUB-Q (08:01)
[2021-09-14] MEDS: MORPHINE SULFATE (*CRX) 2 MG/ML INJ IV PUSH ×4 (08:08→19:55)
--- NOTE | 2021-09-14 08:40 | PM.IMPN ---
Progress Note: A&P Assessment and Plan (1) Intussusception of colon: Code(s): K56.1 - Intussusception Status: Acute Assessment and Plan: CT of abdomen/pelvis revealed intussusception involving transverse colon with suspected mass as lead point Initial imaging reports concerning for malignancy. CEA is just slightly elevated at 4.1 Appreciate general surgery and Gastroenterology consultation Hypaque enema done 09/10/21; limited due to stool Colonoscopy revealed partially obstructing mass. See below Status post hand assisted laparoscopic extended right hemicolectomy with ileocolic anastomosis, this is postop day 1. (2) Colonic mass: Code(s): K63.89 - Other specified diseases of intestine Status: Acute Assessment and Plan: Colonoscopy done 09/12/21 with 7 cm villous mass of the proximal transverse colon Biopsies pending Mass was too large for endoscopic removal. Planning for hand assisted laparoscopic left hemicolectomy this afternoon Appreciate general surgery and Gastroenterology management Postop day 1. Of removal of mass as documented in problem 1. Goal for today is pain control. Pathology pending. (3) Diarrhea: Code(s): R19.7 - Diarrhea, unspecified Status: Acute Assessment and Plan: Ongoing issue Appreciate gastroenterology consultation [place] to be related to colonic mass and intussusception GI service is following. Diet is advanced to Clear liquid. (4) Blood in stool: Code(s): K92.1 - Melena Status: Acute Assessment and Plan: Patient describes intermittent specks of bright red blood in his stool Likely due to colonic mass No active bleeding at this time H&H stable. Continue to monitor this morning's hemoglobin is 12.2. Time Spent With Patient Time with patient: 15 - 25 minutes Subjective Date/time seen: 09/14/21 08:00 This very pleasant 56-year-old male patient was examined at the bedside today in interval assessment. He is status post hand assisted laparoscopic extended right hemicolectomy with ileocolic anastomosis and this is postop day 1. This was performed secondary to intussusception with concern for malignant lesion within dissection of the colon excised. He is having quite a bit of pain this morning. Nurse is at the bedside upon my entry into the room and she is medicating him. He denies any flatus passed since surgery and bowel sounds are not able to be auscultated this morning. His incision as well as laparoscopic sites appear without signs of infection, drainage or dehiscence. He has no new complaints such as chest pain, dyspnea, nausea, vomiting, diarrhea, headache, dizziness, lightheadedness. GI as well as General surgery are both co-managing this case along with hospitalist Medicine. Review of Systems Review of Systems: All systems reviewed & are unremarkable except as noted in HPI and below Exam Const: General: uncomfortable ( Secondary to Postoperative pain.) HENMT: General nose exam: Normal nares present and no epistaxis Mouth: Yes moist mucous membranes Eyes: General: appearance normal, both eyes and all related structures Sclera: sclerae normal Pupils: Equal, round and reactive pupils present EOM: EOMs intact bilaterally Neck: Neck: supple and no JVD Carotids: no bruits Lymphatic: lymphadenopathy not noted Resp: Effort & Inspection: normal respiratory effort Auscultation: clear to auscultation bilaterally Cardio: Rate: regular rate Rhythm: regular rhythm Heart sounds: no gallops, no murmurs and no rubs GI: Inspection: non-distended GI Palp: Yes Firmness to palpation present (GI), Yes Tenderness to palpation present (GI) and Yes Guarding due to palpation present (GI) Auscultation: abnormal bowel sounds ( none auscultated.) Other: Midline incision around umbilicus. Three laparotomy sites present. All surgical incision sites are clean, dry, intact and well approximate
[2021-09-14 12:00] VITALS: BP 126/77; PULSE 58; RESP 16; TEMP 36.7; O2SAT 100
--- NOTE | 2021-09-14 12:01 | PM.PNGS ---
Progress Note: A&P Assessment and Plan (1) Intussusception of colon: Code(s): K56.1 - Intussusception Status: Acute Assessment and Plan: Will continue clear liquids today Encouraged increasing activity and ambulating Pathology pending (2) Abnormal CT of the abdomen: Code(s): R93.5 - Abnormal findings on diagnostic imaging of other abdominal regions, including retroperitoneum Status: Acute (3) Blood in stool: Code(s): K92.1 - Melena Status: Acute (4) Diarrhea: Code(s): R19.7 - Diarrhea, unspecified Status: Acute Plan I have discussed the patient's case and plan of care with Dr. Spencer. Subjective Subjective Date/Time Seen: 09/14/21 12:01 Post Op day: 1 (TOM extended right hemicolectomy, open umbilical hernia repair) Patient reports: voiding w/o difficulty, no flatus, no bowel movement and afebrile Interval history: This is a 56 yo M who presented with diarrhea and cramping abdominal pain. Workup revealed evidence of an intussusception of the transverse colon likely caused by a colon mass. He underwent colonoscopy on 09/12/21, which showed a large mass in the transverse colon. He then was taken to surgery on 09/13/21 for TOM extended right hemicolectomy, laparoscopic mobilization of splenic flexure, open umbilical hernia repair by Dr. Spencer. Chart reviewed. Patient seen and examined. He is feeling bloated. He reports incisional abdominal pain that is being controlled with IV morphine. He had his first dose of the Morphine this morning around 8:00 am. No nausea or vomiting. No flatus. Review of Systems Review of Systems: All systems reviewed & are unremarkable except as noted in HPI and below Exam Const: General: awake; No acute distress Orientation/consciousness: patient oriented x3 GI: Inspection: non-distended and incision (Incisions dry and intact) GI Palp: Yes Soft to palpation and Yes Tenderness to palpation present (GI) (Incisional) Auscultation: Hypoactive bowel sounds present Neuro: General: moves all extremities and no focal motor deficits Extrem: General: no calf tenderness and no edema Psych: Insight: Good insight present (Psych) Objective Data Vital Signs Vital Signs: Vital Signs - 24 hr 09/13/21 13:05 09/13/21 18:43 09/13/21 19:00 Temperature 98.8 F 97.7 F Pulse Rate 67 96 84 Respiratory Rate 18 18 18 Blood Pressure 129/74 114/72 128/76 Pulse Oximetry 98 97 100 Oxygen Delivery Room Air BiPAP BiPAP Oxygen Flow Rate Fraction of Inspired Oxygen 100 100 09/13/21 19:15 09/13/21 19:30 09/13/21 19:46 Temperature Pulse Rate 75 80 84 Respiratory Rate 16 12 13 Blood Pressure 124/72 120/75 108/65 Pulse Oximetry 100 93 93 Oxygen Delivery BiPAP Nasal Cannula Nasal Cannula Oxygen Flow Rate 3 3 Fraction of Inspired Oxygen 100 09/13/21 18:40 09/13/21 20:06 09/13/21 20:21 Temperature 96.9 F L 96.9 F L Pulse Rate 89 80 79 Respiratory Rate 18 16 16 Blood Pressure 119/59 L 118/62 Pulse Oximetry 100 93 93 Oxygen Delivery BiPAP Oxygen Flow Rate Fraction of Inspired Oxygen 09/13/21 20:51 09/13/21 21:51 09/13/21 20:15 Temperature 97.4 F L 97.0 F L Pulse Rate 77 79 79 Respiratory Rate 16 18 18 Blood Pressure 127/62 122/68 Pulse Oximetry 93 94 94 Oxygen Delivery Nasal Cannula Oxygen Flow Rate 3 Fraction of Inspired Oxygen 100 09/14/21 05:51 09/14/21 08:00 Temperature 97.9 F 97.5 F L Pulse Rate 60 72 Respiratory Rate 18 16 Blood Pressure 142/52 H 122/81 Pulse Oximetry 98 98 Oxygen Delivery Oxygen Flow Rate Fraction of Inspired Oxygen Intake/Output Intake/Output: Intake & Output 09/11/21 09/12/21 09/13/21 09/14/21 23:59 23:59 23:59 23:59 Intake Total 3430 780 1490 1340 Output Total 4 700 Balance 3430 780 1486 640 Meds/Results Medications: Active Medications Generic Name Dose Route Start Last Admin Trade Name Freq PRN Reason Stop Dose Admin Acetaminophen 1,000
[2021-09-14 14:00] VITALS: BP 124/80; PULSE 60; RESP 16; TEMP 36.6; O2SAT 100
[2021-09-14 19:58] VITALS: PULSE 60; RESP 16; O2SAT 100
[2021-09-14 21:39] VITALS: BP 121/70; PULSE 63; RESP 18; TEMP 36.6; O2SAT 97
[2021-09-14] MEDS: FAMOTIDINE 20 MG/2 ML VIAL IV PUSH (22:35)
[2021-09-15] MEDS: MORPHINE SULFATE (*CRX) 4 MG/ML INJ IV PUSH ×3 (00:19→20:06)
[2021-09-15] MEDS: ACETAMINOPHEN 500 MG TABLET 1000 MG PO ×4 (04:17→20:06)
[2021-09-15 05:37] VITALS: BP 132/74; PULSE 67; RESP 18; TEMP 36.6; O2SAT 90
[2021-09-15 07:16] LABS: Basophils Absolute Auto 0.1 K/mm3 (0.0-0.1); Basophils Percent Auto 0.7 % (0.2-1.2); Eosinophils Absolute Auto 0.1 K/mm3 (0-0.3); Eosinophils Percent Auto 0.8 % (0-4.4); Hematocrit 34.2 % (42.0-52.0); Hemoglobin 11.7 g/dL (14.0-18.0); Immature Granulocyte Absolute 0.02 K/mm3 (0.00-0.031); Immature Granulocyte Percent A 0.2 % (0-0.5); Lymphocytes Absolute Auto 2.04 K/mm3 (0.9-3.2); Lymphocytes Percent Auto 22.9 % (18.3-44.2); Mean Corpuscular HGB Conc 34.2 g/dl (32-36); Mean Corpuscular Volume 93.4 fl (80-100); Mean Platelet Volume 10.9 fl (7.4-10.4); Monocytes Absolute Auto 0.7 K/mm3 (0.1-0.6); Monocytes Percent Auto 7.3 % (2.6-8.5); Neutrophils Absolute Auto 6.1 K/mm3 (1.3-6.7); Neutrophils Percent Auto 68.1 % (45.5-73.1); Platelet Count Result 209 k/mm3 (150-375); Red Blood Count 3.66 M/mm3 (4.6-6.20); Red Cell Distribution Width 11.9 % (11.5-14.5); White Blood Count 8.9 K/mm3 (4.5-10.0)
[2021-09-15 07:28] LABS: Alanine Aminotransferase 32 U/L (6-50); Albumin Level 3.3 g/dL (3.5-5.1); Alkaline Phosphatase 76 U/L (38-126); Anion Gap 6 mmol/L (8-16); Aspartate Amino Transferase 24 U/L (17-59); Bilirubin,Total 0.7 mg/dL (0.2-1.3); Blood Urea Nitrogen 8 mg/dL (9-20); Calcium 8.3 mg/dL (8.4-10.2); Carbon Dioxide 29 mmol/L (22-30); Chloride 101 mmol/L (98-107); Estimated CRCL calculation 106 ml/min; Estimated Glomerular Filt Rate > 60; Glucose 95 mg/dL (65-110); Potassium 3.6 mmol/L (3.4-5.0); Sodium 136 mmol/L (137-145)
[2021-09-15] MEDS: ENOXAPARIN 40 MG/0.4 ML SYRINGE SUB-Q (08:23)
[2021-09-15] MEDS: FAMOTIDINE 20 MG/2 ML VIAL IV PUSH ×2 (08:24→20:07)
--- NOTE | 2021-09-15 11:48 | PM.IMPN ---
Progress Note: A&P Assessment and Plan (1) Intussusception of colon: Code(s): K56.1 - Intussusception Status: Acute Assessment and Plan: CT of abdomen/pelvis revealed intussusception involving transverse colon with suspected mass as lead point Initial imaging reports concerning for malignancy. CEA is just slightly elevated at 4.1 Appreciate general surgery and Gastroenterology consultation Hypaque enema done 09/10/21; limited due to stool Colonoscopy revealed partially obstructing mass. See below Status post hand assisted laparoscopic extended right hemicolectomy with ileocolic anastomosis, this is postop day 2. Still on a clear liquid diet. (2) Colonic mass: Code(s): K63.89 - Other specified diseases of intestine Status: Acute Assessment and Plan: Await pathology (3) Diarrhea: Code(s): R19.7 - Diarrhea, unspecified Status: Acute Assessment and Plan: Monitor Subjective Date/time seen: 09/15/21 11:48 Still on liquid diet. Mild abdominal pain. No BM Exam Narrative: General: Well-nourished, well-appearing 56-year-old male, sitting up at the bedside, comfortable, NARD Neuro: awake, alert and oriented x4, speech clear, no focal neuro deficits noted HEENMT: normocephalic, atraumatic, EOMI, sclerae anicteric Respiratory: clear to auscultation bilaterally, nonlabored breathing Cardio: regular rate, regular rhythm with S1-S2 Abdomen: nondistended, soft, nontender to palpation Extremities: no edema, erythema, or tenderness to palpation Skin: no rashes or lesions, warm and dry Psych: appropriate mood and affect, judgment and insight intact Const: General: comfortable, no acute distress and uncomfortable ( Secondary to Postoperative pain.) HENMT: General nose exam: Normal nares present and no epistaxis Mouth: Yes moist mucous membranes Eyes: General: appearance normal, both eyes and all related structures Sclera: sclerae normal Pupils: Equal, round and reactive pupils present EOM: EOMs intact bilaterally Neck: Neck: supple and no JVD Carotids: no bruits Lymphatic: lymphadenopathy not noted Resp: Effort & Inspection: normal respiratory effort Auscultation: clear to auscultation bilaterally Cardio: Rate: regular rate Rhythm: regular rhythm Heart sounds: no gallops, no murmurs and no rubs Other: no gallop or murur GI: Inspection: non-distended Auscultation: normal bowel sounds and abnormal bowel sounds ( none auscultated.) Other: Midline incision around umbilicus. Three laparotomy sites present. All surgical incision sites are clean, dry, intact and well approximated without any signs of acute infection. Skin: General skin exam: normal color and no rashes or lesions noted Wounds: no wounds Other: Surgical incisions as noted above on abdominal exam. Neuro: General: gait normal Cranial nerves: Yes Equal, round and reactive pupils present Speech: normal speech Motor exam (neuro): 5/5 motor strength present throughout and Normal motor muscle tone present throughout Sensory Exam: normal sensation Extrem: General: normal to inspection, no edema and no pedal edema Other: Patient freely and equally moves all extremities well without deficit. Psych: Mental Status: mental status grossly normal Affect: normal affect Objective Data Vital Signs Vital Signs: Vital Signs - 24 hr 09/14/21 12:00 09/14/21 14:00 09/14/21 19:58 Temperature 98.0 F 97.9 F Pulse Rate 58 L 60 60 Respiratory Rate 16 16 16 Blood Pressure 126/77 124/80 Pulse Oximetry 100 100 100 Oxygen Delivery Room Air Fraction of Inspired Oxygen 100 09/14/21 21:39 09/15/21 05:37 Temperature 97.8 F 97.8 F Pulse Rate 63 67 Respiratory Rate 18 18 Blood Pressure 121/70 132/74 Pulse Oximetry 97 90 Oxygen Delivery Fraction of Inspired Oxygen Intake/Output Intake/Output: Intake & Output 09/12/21 09/13/21 09/14/21 09/15/21 23:59 23:59 23:59 23:59
--- NOTE | 2021-09-15 12:02 | WPDGIPROGNO ---
Progress Note: A&P Assessment and Plan (1) Colonic mass: Code(s): K63.89 - Other specified diseases of intestine Status: Acute Assessment and Plan: Colon mass now status post resection. Final histology pending. Was totally removed with right hemicolectomy. Awaiting complete resolution of his postoperative ileus disposition per surgical service. Follow-up colonoscopy would likely be beneficial in 1-2 years after discharge. (2) Intussusception of colon: Code(s): K56.1 - Intussusception Status: Acute Assessment and Plan: Intussusception because of transverse colon mass. Now resected. Intussusception resolved. Subjective Date/time seen: 09/15/21 12:02 Patient alert much more comfortable today. Tolerating liquid diet. Still no bowel movements. No significant flatus yet. Review of Systems Review of Systems: Review of systems noncontributory. Exam Narrative: Physical exam reveals patient be alert. Vital signs stable. HEENT exam is unremarkable. Patient anicteric. Lungs are clear. Heart without murmur. Abdomen bowel sounds noted. Incision appears to be healing adequately. Objective Data Vital Signs Vital Signs: Vital Signs - 24 hr 09/14/21 14:00 09/14/21 19:58 09/14/21 21:39 Temperature 97.9 F 97.8 F Pulse Rate 60 60 63 Respiratory Rate 16 16 18 Blood Pressure 124/80 121/70 Pulse Oximetry 100 100 97 Oxygen Delivery Room Air Fraction of Inspired Oxygen 100 09/15/21 05:37 Temperature 97.8 F Pulse Rate 67 Respiratory Rate 18 Blood Pressure 132/74 Pulse Oximetry 90 Oxygen Delivery Fraction of Inspired Oxygen Intake/Output Intake/Output: Intake & Output 09/12/21 09/13/21 09/14/21 09/15/21 23:59 23:59 23:59 23:59 Intake Total 780 1490 3130 990 Output Total 4 1500 1800 Balance 780 1486 1630 -810 Meds/Results Medications: Active Medications Generic Name Dose Route Start Last Admin Trade Name Freq PRN Reason Stop Dose Admin Acetaminophen 1,000 mg 09/13/21 21:00 09/15/21 08:24 Acetaminophen 500 Mg Tablet PO 1,000 mg Q6H YE Administration Enoxaparin Sodium 40 mg 09/14/21 09:00 09/15/21 08:23 Enoxaparin 40 Mg/0.4 Ml Syringe SUB-Q 40 mg DAILY YE Administration Famotidine 20 mg 09/14/21 21:00 09/15/21 08:24 Famotidine 20 Mg/2 Ml Vial IV PUSH 20 mg Q12HR YE Administration Lactated Ringer's 1,000 mls @ 70 mls/hr 09/13/21 20:06 09/14/21 18:51 Lr - Lactated Ringers Iv IV CONT 100 mls/hr .[id number] YE Administration Morphine Sulfate 2 mg 09/13/21 20:06 09/14/21 19:55 Morphine Sulfate (*Crx) 2 Mg/Ml Inj IV PUSH 2 mg Q2H PRN Administration Pain Rated 4-6 Morphine Sulfate 4 mg 09/13/21 20:06 09/15/21 04:16 Morphine Sulfate (*Crx) 4 Mg/Ml Inj IV PUSH 4 mg Q2H PRN Administration Pain Rated 7-10 Ondansetron HCl 4 mg 09/13/21 20:06 Ondansetron Inj 4 Mg/2 Ml Vial IV PUSH Q4H PRN Nausea And Vomiting Oxycodone HCl 5 mg 09/13/21 20:06 Oxycodone Hcl (*Crx) 5 Mg Tab Ir PO Q4H PRN Pain Rated 4-6 Oxycodone HCl 10 mg 09/13/21 20:06 Oxycodone Hcl (*Crx) 5 Mg Tab Ir PO Q4H PRN Pain Rated 7-10 Radiology Results: ITS Impressions Enema w/Water Soluble 09/10/21 12:46 IMPRESSION: Retained fecal material within the colon which prevents exclusion of polyps or masses. Colonoscopy is strongly recommended. Mild sigmoid colon diverticulosis Labs Labs: Laboratory Results - last 24 hr 09/15/21 09/15/21 06:15 06:15 WBC 8.9 RBC 3.66 L Hgb 11.7 L Hct 34.2 L MCV 93.4 MCH 32.0 MCHC 34.2 RDW 11.9 Plt Count 209 MPV 10.9 H Immature Gran % (Auto) 0.2 Neut % (Auto) 68.1 Lymph % (Auto) 22.9 Nash % (Auto) 7.3 Eos % (Auto) 0.8 Baso % (Auto) 0.7 Lymph # (Auto) 2.04 Nash # (Auto) 0.7 H Eos # (Auto) 0.1 Baso # (Auto) 0.1 Abs Immat Gran (auto) 0.02 Absolute Neuts (auto)
--- NOTE | 2021-09-15 12:09 | PM.PNGS ---
Progress Note: A&P Assessment and Plan (1) Intussusception of colon: Code(s): K56.1 - Intussusception Status: Acute Assessment and Plan: Advanced to full liquids today, await return of bowel function Increase activity Final pathology pending (2) Abnormal CT of the abdomen: Code(s): R93.5 - Abnormal findings on diagnostic imaging of other abdominal regions, including retroperitoneum Status: Acute (3) Blood in stool: Code(s): K92.1 - Melena Status: Acute (4) Diarrhea: Code(s): R19.7 - Diarrhea, unspecified Status: Acute Subjective Subjective Date/Time Seen: 09/15/21 12:09 Interval history: No flatus or BM yet. Tolerating clear liquids. No nausea. Pain controlled. Exam GI: Inspection: non-distended and incision (Intact with glue) GI Palp: Yes Soft to palpation and Yes Tenderness to palpation present (GI) (Incisional) Auscultation: Hypoactive bowel sounds present Objective Data Vital Signs Vital Signs: Vital Signs - 24 hr 09/14/21 14:00 09/14/21 19:58 09/14/21 21:39 Temperature 36.6 C 36.6 C Pulse Rate 60 60 63 Respiratory Rate 16 16 18 Blood Pressure 124/80 121/70 Pulse Oximetry 100 100 97 Oxygen Delivery Room Air Fraction of Inspired Oxygen 100 09/15/21 05:37 Temperature 36.6 C Pulse Rate 67 Respiratory Rate 18 Blood Pressure 132/74 Pulse Oximetry 90 Oxygen Delivery Fraction of Inspired Oxygen Intake/Output Intake/Output: Intake & Output 09/12/21 09/13/21 09/14/21 09/15/21 23:59 23:59 23:59 23:59 Intake Total 780 1490 3130 990 Output Total 4 1500 1800 Balance 780 1486 1630 -810 Meds/Results Medications: Active Medications Generic Name Dose Route Start Last Admin Trade Name Freq PRN Reason Stop Dose Admin Acetaminophen 1,000 mg 09/13/21 21:00 09/15/21 08:24 Acetaminophen 500 Mg Tablet PO 1,000 mg Q6H YE Administration Enoxaparin Sodium 40 mg 09/14/21 09:00 09/15/21 08:23 Enoxaparin 40 Mg/0.4 Ml Syringe SUB-Q 40 mg DAILY YE Administration Famotidine 20 mg 09/14/21 21:00 09/15/21 08:24 Famotidine 20 Mg/2 Ml Vial IV PUSH 20 mg Q12HR YE Administration Morphine Sulfate 2 mg 09/13/21 20:06 09/14/21 19:55 Morphine Sulfate (*Crx) 2 Mg/Ml Inj IV PUSH 2 mg Q2H PRN Administration Pain Rated 4-6 Morphine Sulfate 4 mg 09/13/21 20:06 09/15/21 04:16 Morphine Sulfate (*Crx) 4 Mg/Ml Inj IV PUSH 4 mg Q2H PRN Administration Pain Rated 7-10 Ondansetron HCl 4 mg 09/13/21 20:06 Ondansetron Inj 4 Mg/2 Ml Vial IV PUSH Q4H PRN Nausea And Vomiting Oxycodone HCl 5 mg 09/13/21 20:06 Oxycodone Hcl (*Crx) 5 Mg Tab Ir PO Q4H PRN Pain Rated 4-6 Oxycodone HCl 10 mg 09/13/21 20:06 Oxycodone Hcl (*Crx) 5 Mg Tab Ir PO Q4H PRN Pain Rated 7-10 Radiology Results: ITS Impressions Enema w/Water Soluble 09/10/21 12:46 IMPRESSION: Retained fecal material within the colon which prevents exclusion of polyps or masses. Colonoscopy is strongly recommended. Mild sigmoid colon diverticulosis Labs Labs: Laboratory Results - last 24 hr 09/15/21 09/15/21 06:15 06:15 WBC 8.9 RBC 3.66 L Hgb 11.7 L Hct 34.2 L MCV 93.4 MCH 32.0 MCHC 34.2 RDW 11.9 Plt Count 209 MPV 10.9 H Immature Gran % (Auto) 0.2 Neut % (Auto) 68.1 Lymph % (Auto) 22.9 [place] % (Auto) 7.3 Eos % (Auto) 0.8 Baso % (Auto) 0.7 Lymph # (Auto) 2.04 [place] # (Auto) 0.7 H Eos # (Auto) 0.1 Baso # (Auto) 0.1 Abs Immat Gran (auto) 0.02 Absolute Neuts (auto) 6.1 Absolute Nucleated RBC 0.0 Nucleated RBC % 0.0 Sodium 136 L Potassium 3.6 Chloride 101 Carbon Dioxide 29 Anion Gap 6 L BUN 8 L Creatinine 0.80 Estim Creat Clear Calc 106 Estimated GFR > 60 Glucose 95 Calcium 8.3 L Magnesium 2.0 Total Bilirubin 0.7 AST 24 ALT 32 Alkaline Phosphatase 76 Total Prot
[2021-09-15 14:00] VITALS: BP 140/83; PULSE 52; RESP 16; TEMP 36.3; O2SAT 96
[2021-09-15 21:24] VITALS: BP 134/87; PULSE 64; RESP 20; TEMP 37; O2SAT 93
[2021-09-16] MEDS: MORPHINE SULFATE (*CRX) 4 MG/ML INJ IV PUSH ×2 (00:23→03:22)
[2021-09-16] MEDS: ACETAMINOPHEN 500 MG TABLET 1000 MG PO ×2 (03:20→08:18)
[2021-09-16 05:26] VITALS: BP 126/84; PULSE 56; RESP 18; TEMP 36.9; O2SAT 95
--- NOTE | 2021-09-16 07:54 | PM.PNGS ---
Progress Note: A&P Assessment and Plan (1) Intussusception of colon: Code(s): K56.1 - Intussusception Status: Acute Assessment and Plan: Advanced to soft diet today, await return of bowel function Increase activity Final pathology pending OK to discharge after lunch today if continuing to tolerate diet (2) Abnormal CT of the abdomen: Code(s): R93.5 - Abnormal findings on diagnostic imaging of other abdominal regions, including retroperitoneum Status: Acute (3) Blood in stool: Code(s): K92.1 - Melena Status: Acute (4) Diarrhea: Code(s): R19.7 - Diarrhea, unspecified Status: Acute Subjective Subjective Date/Time Seen: 09/16/21 07:54 Interval history: Passing some flatus, no BM yet. Ambulating well. Minimal pain. Exam GI: Inspection: non-distended and incision (Intact with glue) GI Palp: Yes Soft to palpation and Yes Tenderness to palpation present (GI) (Incisional) Auscultation: normal bowel sounds Objective Data Vital Signs Vital Signs: Vital Signs - 24 hr 09/15/21 14:00 09/15/21 20:00 09/15/21 21:24 Temperature 36.3 C L 37.0 C Pulse Rate 52 L 64 Respiratory Rate 16 20 Blood Pressure 140/83 134/87 Pulse Oximetry 96 93 Oxygen Delivery Room Air 09/16/21 05:26 Temperature 36.9 C Pulse Rate 56 L Respiratory Rate 18 Blood Pressure 126/84 Pulse Oximetry 95 Oxygen Delivery Intake/Output Intake/Output: Intake & Output 09/13/21 09/14/21 09/15/21 09/16/21 23:59 23:59 23:59 23:59 Intake Total 1490 3130 1880 250 Output Total 4 1500 1800 Balance 1486 1630 80 250 Meds/Results Medications: Active Medications Generic Name Dose Route Start Last Admin Trade Name Freq PRN Reason Stop Dose Admin Acetaminophen 1,000 mg 09/13/21 21:00 09/16/21 03:20 Acetaminophen 500 Mg Tablet PO 1,000 mg Q6H YE Administration Enoxaparin Sodium 40 mg 09/14/21 09:00 09/15/21 08:23 Enoxaparin 40 Mg/0.4 Ml Syringe SUB-Q 40 mg DAILY YE Administration Famotidine 20 mg 09/14/21 21:00 09/15/21 20:07 Famotidine 20 Mg/2 Ml Vial IV PUSH 20 mg Q12HR YE Administration Morphine Sulfate 2 mg 09/13/21 20:06 09/14/21 19:55 Morphine Sulfate (*Crx) 2 Mg/Ml Inj IV PUSH 2 mg Q2H PRN Administration Pain Rated 4-6 Morphine Sulfate 4 mg 09/13/21 20:06 09/16/21 03:22 Morphine Sulfate (*Crx) 4 Mg/Ml Inj IV PUSH 4 mg Q2H PRN Administration Pain Rated 7-10 Ondansetron HCl 4 mg 09/13/21 20:06 Ondansetron Inj 4 Mg/2 Ml Vial IV PUSH Q4H PRN Nausea And Vomiting Oxycodone HCl 5 mg 09/13/21 20:06 Oxycodone Hcl (*Crx) 5 Mg Tab Ir PO Q4H PRN Pain Rated 4-6 Oxycodone HCl 10 mg 09/13/21 20:06 Oxycodone Hcl (*Crx) 5 Mg Tab Ir PO Q4H PRN Pain Rated 7-10 Radiology Results: ITS Impressions Enema w/Water Soluble 09/10/21 12:46 IMPRESSION: Retained fecal material within the colon which prevents exclusion of polyps or masses. Colonoscopy is strongly recommended. Mild sigmoid colon diverticulosis
[2021-09-16] MEDS: ENOXAPARIN 40 MG/0.4 ML SYRINGE SUB-Q (08:14)
[2021-09-16] MEDS: MAGNESIUM HYDROXIDE SUSP 30 ML UDC PO (08:14)
[2021-09-16] MEDS: FAMOTIDINE 20 MG/2 ML VIAL IV PUSH (08:15)
--- NOTE | 2021-09-16 09:35 | PCNWS ---
Weekly nutritional screen. Patient is tolerating current low fiber diet with adequate intake at 75-100%. No weight loss reported. No nutritional needs at this time.
--- NOTE | 2021-09-16 12:12 | PM.DS ---
DS: Admitting Diagnosis Discharge Date September 16, 2021 Admitting Diagnosis colon Mass DS: Discharge Diagnosis Discharge Diagnosis (1) Intussusception of colon: Code(s): K56.1 - Intussusception Status: Acute Assessment and Plan: CT of abdomen/pelvis revealed intussusception involving transverse colon with suspected mass as lead point Initial imaging reports concerning for malignancy. CEA is just slightly elevated at 4.1 Appreciate general surgery and Gastroenterology consultation Hypaque enema done 09/10/21; limited due to stool Colonoscopy revealed partially obstructing mass. See below Status post hand assisted laparoscopic extended right hemicolectomy with ileocolic anastomosis, this is postop day 2. Still on a clear liquid diet. (2) Colonic mass: Code(s): K63.89 - Other specified diseases of intestine Status: Acute Assessment and Plan: Await pathology (3) Diarrhea: Code(s): R19.7 - Diarrhea, unspecified Status: Acute Assessment and Plan: Monitor DS: Summary Hospital Course Hospital Course: Patient was admitted for abdominal pain and cramping found have colon mass. Had resection and is awaiting biopsy results. Will follow up with surgery. Otherwise patient is stable and eating can be discharged Time Spent with Patient Time attestation: Total time spent providing and/or coordinating discharge services: Exam Narrative: General: Well-nourished, well-appearing 56-year-old male, sitting up at the bedside, comfortable, NARD Neuro: awake, alert and oriented x4, speech clear, no focal neuro deficits noted HEENMT: normocephalic, atraumatic, EOMI, sclerae anicteric Respiratory: clear to auscultation bilaterally, nonlabored breathing Cardio: regular rate, regular rhythm with S1-S2 Abdomen: nondistended, soft, nontender to palpation Extremities: no edema, erythema, or tenderness to palpation Skin: no rashes or lesions, warm and dry Psych: appropriate mood and affect, judgment and insight intact Const: General: comfortable, no acute distress and uncomfortable ( Secondary to Postoperative pain.) HENMT: General nose exam: Normal nares present and no epistaxis Mouth: Yes moist mucous membranes Eyes: General: appearance normal, both eyes and all related structures Sclera: sclerae normal Pupils: Equal, round and reactive pupils present EOM: EOMs intact bilaterally Neck: Neck: supple and no JVD Carotids: no bruits Lymphatic: lymphadenopathy not noted Resp: Effort & Inspection: normal respiratory effort Auscultation: clear to auscultation bilaterally Cardio: Rate: regular rate Rhythm: regular rhythm Heart sounds: no gallops, no murmurs and no rubs Other: no gallop or murur GI: Inspection: non-distended Auscultation: normal bowel sounds and abnormal bowel sounds ( none auscultated.) Other: Midline incision around umbilicus. Three laparotomy sites present. All surgical incision sites are clean, dry, intact and well approximated without any signs of acute infection. Skin: General skin exam: normal color and no rashes or lesions noted Wounds: no wounds Other: Surgical incisions as noted above on abdominal exam. Neuro: General: gait normal Cranial nerves: Yes Equal, round and reactive pupils present Speech: normal speech Motor exam (neuro): 5/5 motor strength present throughout and Normal motor muscle tone present throughout Sensory Exam: normal sensation Extrem: General: normal to inspection, no edema and no pedal edema Other: Patient freely and equally moves all extremities well without deficit. Psych: Mental Status: mental status grossly normal Affect: normal affect DS: Data Data Completed and Pending Completed studies during hospitalization: Pending at discharge 09/12/21 10:40 Surgical [PTH] Routine Pending studies at discharge: Pending at discharge 09/13/21 17:14 Surgical [PTH] Routine Surgical [PTH] Ro
== END 2021-09-16 12:55 | disposition home or self-care (01) | DRG 330 ==
LOC: ANHED 17:59 → ANH3MEDSUR 20:16
PROVIDERS: Internal Medicine; Internal Medicine Gastroenterology; Nurse Practitioner Adult Health; Physician Assistant; Surgery; Admitting Provider Family Medicine; Emergency Provider Emergency Medicine; PCP Registered Nurse; Visit Provider Chiropractor
PROC: 0DJD8ZZ Inspection of Lower Intestinal Tract, Via Natural or Artificial Opening Endoscopic (ICD-10-PCS; CPT 45378; principal; 2021-09-12 13:30)
PROC: 0D1E4Z4 Bypass Large Intestine to Cutaneous, Percutaneous Endoscopic Approach (ICD-10-PCS; principal; 2021-09-13 13:00)
DX: C18.9 Malignant neoplasm of colon, unspecified (principal); K56.1 Intussusception; K56.7 Ileus, unspecified; K42.9 Umbilical hernia without obstruction or gangrene; K57.30 Diverticulosis of large intestine without perforation or abscess without bleeding; K64.8 Other hemorrhoids; R93.5 Abnormal findings on diagnostic imaging of other abdominal regions, including retroperitoneum; Z20.822 Contact with and (suspected) exposure to COVID-19; Z88.0 Allergy status to penicillin
CPT/HCPCS: 36415; 74270; 80048; 80053; 81003; 82378; 83605; 83690; 83735; 85014; 85018; 85025; 85610; 85730; 86850; 86900; 86901; 88302; 88304; 88305; 88309; 94002; 96360; 96361; 96372; 96374; 99285; A9270; C1729; C9113; C9290; C9803; G0378; J0330; J0690; J1100; J1170; J1650; J1885; J2250; J2270; J2704; J3010; J7030; J7120; U0003; U0005

== ENCOUNTER 2022-05-17 13:18 | Outpatient (CLI) | payer OTHER, SELFPAY ==
--- NOTE | ~2022-05-17 | CT_ITS ---
CT of the Abdomen and Pelvis: Indication: Colon cancer Technique: 2.5 mm axial scans were obtained through the abdomen and pelvis following intravenous adm inistration of 100 cc of Omnipaque 350. Dose reduction technique was used on this scan by utilizing a utomated exposure control and iterative reconstruction technique. The dose-length product (DLP) was 1 021.30 mGy-cm. COMPARISON: 09/09/2021 Findings: Scans through the lung bases demonstrate calcified left basilar granuloma. Extensive fatty infiltration of the liver is present. The spleen, pancreas, gallbladder, adrenals and right kidney are within normal limits. Punctate nonobstructing left renal stone noted. No evidence o f aortic aneurysm. No lymphadenopathy. No bowel obstruction or bowel wall thickening. There is sigmoid diverticulosis. Anastomosis noted at the proximal transverse colon region. Images through the pelvis were performed. Urinary bladder unremarkable. Prostate gland and seminal ve sicles are unremarkable. No ascites. Impression: No evidence of active malignancy or metastatic disease. Postoperative changes of the large bowel, as noted above. Diffuse fatty infiltration of the liver. Punctate nonobstructing left renal stone. Reviewed, dictated and finalized at [facility]. Impression: No evidence of active malignancy or metastatic disease. Postoperative changes o f the large bowel, as noted above. Diffuse fatty infiltration of the liver. Punctate nonobstructing left renal stone.
== END 2022-05-17 13:19 ==
PROVIDERS: PCP Internal Medicine Medical Oncology; Visit Provider Internal Medicine Medical Oncology
DX: C18.4 Malignant neoplasm of transverse colon (principal); Z98.890 Other specified postprocedural states; K76.0 Fatty (change of) liver, not elsewhere classified; N20.0 Calculus of kidney
CPT/HCPCS: 74177; Q9967

== ENCOUNTER 2022-07-25 00:32 | Day surgery (SDC) | payer OTHER, SELFPAY ==
[2022-07-25 06:16] VITALS: BP 143/92; PULSE 68; RESP 20; TEMP 35.9; O2SAT 99; BMI 31.8
[2022-07-25] MEDS: LACTATED RINGERS 1,000 ML 150 ML IV CONT (06:28)
--- NOTE | 2022-07-25 07:13 | PM.HPGS ---
History of Present Illness History of Present Illness Consent: Risks, benefits, and alternatives have been discussed and questions answered. Patient agrees to proceed with procedure. Chief complaint: hx of colon ca large intestine Narrative: Russell Vang is a 56 year old male Presents for follow-up colonoscopy. Patient presented in September of 2021 with intussusception. He was found to have a colon carcinoma this was resected. Patient has subsequently done well. Plan for surveillance colonoscopy at this time. Patient reports current weight appetite and bowel movements are normal. Family history noncontributory. Review of Systems Review of Systems: Review of systems noncontributory. [facility] Past Medical History Medical History Bloating Blood in stool Diarrhea Elevated liver enzymes Healthy adult male Left lower quadrant pain Obese Surgical History Surgical History H/O right hemicolectomy TOM Extended R hemicolectomy on 09/13/21 History of orthopedic surgery Social History Social History Smoking status: Never smoker Alcohol intake: current Drinks per week: 20 Substance use: never Living arrangements: with family Spiritual care concerns: No Meds Home Medications and Allergies Home Medications Medication Instructions Recorded Confirmed Type aspirin 81 mg capsule 81 mg PO DAILY 07/17/22 07/25/22 History Allergies Allergy/AdvReac Type Severity Reaction Status Date / Time Penicillins Allergy Fever Verified 07/25/22 06:15 Vital Signs Vital Signs - 24 hr 07/25/22 06:16 Temperature 96.7 F L Pulse Rate 68 Respiratory Rate 20 Blood Pressure 143/92 H Pulse Oximetry 99 Oxygen Delivery Room Air Exam Narrative: Physical exam reveals patient be alert. Vital signs stable. HEENT exam is unremarkable. Patient is anicteric. Lungs are clear to auscultation and percussion. Heart is without murmur or extra sounds. Abdomen bowel sounds are present soft nontender with no organomegaly. Digital external rectal exam normal. Assessment and Plan Assessment and plan (1) History of colon cancer: Code(s): Z85.038 - Personal history of other malignant neoplasm of large intestine Status: Acute Assessment and Plan: History of colon carcinoma. Status post bowel resection 1 year ago. Patient presents today for surveillance exam. Further recommendations will be given after endoscopy.
--- NOTE | 2022-07-25 07:18 | P.PNAN_ITS ---
Anes - Initial Pre Proc Eval Procedure: Operation Date: 07/25/22 07:30 Proposed Procedures p Colonoscopy - Pietro Pepe MD Date/Time: 07/25/22 07:18 Surgeon: Pietro Pepe MD Pre Op Diagnosis: hx of colon ca large intestine Patient Data Age: 56 Gender: M Height: 1.78 m Weight: 100.6 kg Last Vital Signs Temp 96.7 F L 07/25/22 06:16 Pulse 68 07/25/22 06:16 Resp 20 07/25/22 06:16 BP 143/92 H 07/25/22 06:16 Pulse Ox 99 07/25/22 06:16 O2 Del Method Room Air 07/25/22 06:16 Allergies Allergy/AdvReac Type Severity Reaction Status Date / Time Penicillins Allergy Fever Verified 07/25/22 06:15 Home Medications Medication Instructions Recorded Confirmed Type aspirin 81 mg capsule 81 mg PO DAILY 07/17/22 07/25/22 History Patient hx anesthesia problems: none Family hx anesthesia problems: none Results Review: All pre-operative results and documents have been reviewed as part of the pre- operative evaluation. [facility] Past Medical History Medical History Bloating Blood in stool Diarrhea Elevated liver enzymes Healthy adult male Left lower quadrant pain Obese Surgical History Surgical History H/O right hemicolectomy TOM Extended R hemicolectomy on 09/13/21 History of orthopedic surgery Social History Social History Smoking status: Never smoker Alcohol intake: current Drinks per week: 20 Substance use: never Living arrangements: with family Spiritual care concerns: No Anes - Eval Final PreProcedure Day of Procedure 07/25/22 07:18 Patient weight: obese Heart: regular rate and rhythm Lungs: clear to auscultation Airway: Mallampati scale class II Neurological: alert and oriented Last oral intake: >/= 8 hours ASA classification: III Emergent: no Anesthetic plan: proceed Anesthesia type and monitoring: general GIVS and standard monitoring Results Review: All pre-operative results and documents have been reviewed as part of the pre- operative evaluation. Informed Consent: The patient's anesthetic plan and its attendant risks and benefits were discussed with the patient/family/POA. Questions were solicited and answers provided to the satisfaction of the patient/family/POA.
[2022-07-25 07:40] VITALS: BP 105/73; PULSE 58; RESP 18; O2SAT 96
[2022-07-25 07:50] VITALS: BP 133/84; PULSE 69; RESP 22; O2SAT 99
[2022-07-25 08:00] VITALS: BP 139/91; PULSE 70; RESP 21; O2SAT 99
== END 2022-07-25 08:10 | disposition home or self-care (01) ==
PROVIDERS: PCP Registered Nurse; Referring Provider Internal Medicine Medical Oncology; Visit Provider Internal Medicine Gastroenterology
PROC: 0DJD8ZZ Inspection of Lower Intestinal Tract, Via Natural or Artificial Opening Endoscopic (ICD-10-PCS; CPT 45378; principal; 2022-07-25 07:30)
DX: Z08 Encounter for follow-up examination after completed treatment for malignant neoplasm (principal); K57.30 Diverticulosis of large intestine without perforation or abscess without bleeding; Z98.0 Intestinal bypass and anastomosis status; Z85.038 Personal history of other malignant neoplasm of large intestine; Z90.49 Acquired absence of other specified parts of digestive tract; Z79.82 Long term (current) use of aspirin; E66.9 Obesity, unspecified; Z68.31 Body mass index [BMI] 31.0-31.9, adult
CPT/HCPCS: 45378; J2704; J7120

== ENCOUNTER 2023-01-03 10:28 | Outpatient (CLI) | payer OTHER, SELFPAY ==
--- NOTE | ~2023-01-03 | CT_ITS ---
CT of the Abdomen and Pelvis: Indication: Abdominal pain Technique: 2.5 mm axial scans were obtained through the abdomen and pelvis following intravenous adm inistration of 100 cc of Omnipaque 350. Dose reduction technique was used on this scan by utilizing a utomated exposure control and iterative reconstruction technique. The dose-length product (DLP) was 9 74.23 mGy-cm. COMPARISON: 05/17/2022 Findings: Scans through the lung bases are unremarkable. Diffuse fatty infiltration of liver noted. The spleen, pancreas, gallbladder, adrenals and kidneys ar e within normal limits. No evidence of aortic aneurysm. No lymphadenopathy. No bowel obstruction or bowel wall thickening. Evidence of prior right partial colectomy. Images through the pelvis were performed. Urinary bladder unremarkable. Prostate gland is prominent. No ascites. Impression: No acute abnormality. Diffuse fatty infiltration of liver. Prior right partial colectomy. Reviewed, dictated and finalized at [facility]. PACKER Impression: No acute abnormality. Diffuse fatty infiltration of liver. Prior right partial colectomy.
== END 2023-01-03 10:29 ==
PROVIDERS: PCP Internal Medicine Medical Oncology; Visit Provider Internal Medicine Medical Oncology
DX: R10.9 Unspecified abdominal pain (principal); K76.0 Fatty (change of) liver, not elsewhere classified; Z90.49 Acquired absence of other specified parts of digestive tract
CPT/HCPCS: 74177; Q9967

== ENCOUNTER 2023-02-15 13:27 | Outpatient (CLI) | payer OTHER, SELFPAY | END 2023-02-15 13:28 | disposition home or self-care (01) | LOC: ANHSURGERY 13:30 | PROVIDERS: PCP Internal Medicine Medical Oncology; Visit Provider Surgery | DX: Z01.818 Encounter for other preprocedural examination (principal); K43.2 Incisional hernia without obstruction or gangrene | CPT/HCPCS: 36415; 86850; 86900; 86901 ==

== ENCOUNTER 2023-02-20 01:05 | Day surgery (SDC) | payer OTHER, SELFPAY ==
[2023-02-14 10:40] VITALS: BMI 31.6
--- NOTE | 2023-02-14 10:45 | PC.NURSE ---
Report to the Outpatient Waiting Room, entrance under the green pavilion located off [facility], at time 11:30 on date 02/20/23. Planned Procedure Time: 1:30. Time changes happen often and if your time is changed the preop area will call you the afternoon before. - You and your visitor will be asked to self-screen and do not enter if you have any COVID symptoms. - A mask is optional within the hospital at this time. Patients may have clear liquids (water, carbonated beverages, clear teas, apple juice) until 3 hours prior to surgery (10:30) with a maximum of 20 ounces. - No food from midnight until time of surgery Take the following medications with a SIP of water the morning of surgery: NONE DO NOT STOP ANY OF YOUR OTHER PRESCRIPTION MEDICATIONS PRIOR TO SURGERY ?EXCEPT THE FOLLOWING Medications to discontinue per physician: N/A Date to take last dose: N/A Please no make-up, nail kyrgyz, hairspray, perfume, deodorant, or body powder the day of surgery. No jewelry (including any body piercings) or valuables the day of surgery, leave them at home. Please take a shower or bath the night before, or the morning of, surgery with an antibacterial soap. Wear comfortable, loose fitting clothing. - Jewelry must be removed prior to entering the operating room. Rings and piercings that are not removed may be cut off. - The hospital will not accept responsibility for valuables. - Please leave all valuables, including medications, at home the day of surgery. If you are going home after surgery, a licensed charter and tour bus driver must drive you home. - NO public transportation without another adult if you receive anesthesia. - We recommend that an adult stay with you for 24 hours following discharge. - We also recommend that you do not drive, make important decision, drink alcoholic beverages, or take any drugs that were not prescribed by your health care provider for at least 24 hours after your discharge time. Follow any additional instructions given to you from your surgeon. If you or anyone in your household have experienced Covid symptoms in the past week, please notify your surgeon or the nurse liaison at the phone number below for possible testing. Telephone instructions given to PT - LINDA DEE and asked if any additional questions and then verbalized understanding. Patient advised to call surgeon office or pre surgery nurse liaison [phone] if any additional questions.
[2023-02-20] VITALS (8 sets, daily range): BP systolic 94–137; BP diastolic 60–81; PULSE 65–89; RESP 10–16; TEMP 36.1–36.7; O2SAT 92–100
[2023-02-20] MEDS: LACTATED RINGERS 1,000 ML 30 ML IV CONT ×2 (11:30→15:04)
--- NOTE | 2023-02-20 11:51 | WPDANESEPPF ---
Anes - Initial Pre Proc Eval Procedure: Operation Date: 02/20/23 13:30 Proposed Procedures p Laparoscopic Incisional Hernia Repair with Mesh, Davinci Assisted - Jaya Spencer DO Date/Time: 02/20/23 11:51 Surgeon: Jaya Spencer DO Pre Op Diagnosis: 3 cm incisional hernia Patient Data Age: 57 Gender: M Height: 1.78 m Weight: 99.8 kg Allergies Allergy/AdvReac Type Severity Reaction Status Date / Time Penicillins Allergy Fever Verified 02/14/23 10:40 Home Medications Medication Instructions Recorded Confirmed Type aspirin 81 mg capsule 81 mg PO DAILY 07/17/22 02/14/23 History Patient hx anesthesia problems: none Family hx anesthesia problems: none Results Review: All pre-operative results and documents have been reviewed as part of the pre-operative evaluation. [facility] Past Medical History Medical History (Updated 02/08/23 @ 14:31 by Nelly Blevins) Bloating Blood in stool Diarrhea Elevated liver enzymes Healthy adult male Left lower quadrant pain Obese Surgical History Surgical History (Updated 02/08/23 @ 13:56 by Madison Bhatt MA) H/O right hemicolectomy TOM Extended R hemicolectomy on 09/13/21 History of appendectomy History of orthopedic surgery Family History Family History Father Heart disease Cerebrovascular accident Sibling Cerebrovascular accident Social History Social History Smoking status: Never smoker Alcohol intake: current Drinks per week: 20 Alcohol use details: BEER Substance use: never Substance use type: does not use Living arrangements: with family Spiritual care concerns: No Anes - Eval Final PreProcedure Day of Procedure 02/20/23 11:51 Patient weight: obese Heart: regular rate and rhythm Lungs: clear to auscultation Airway: Mallampati scale class II Neurological: alert and oriented Last oral intake: >/= 8 hours ASA classification: III Emergent: no Anesthetic plan: proceed Anesthesia type and monitoring: general ETT and standard monitoring Results Review: All pre-operative results and documents have been reviewed as part of the pre-operative evaluation. Informed Consent: The patient's anesthetic plan and its attendant risks and benefits were discussed with the patient/family/POA. Questions were solicited and answers provided to the satisfaction of the patient/family/POA.
[2023-02-20] MEDS: KETOROLAC 15 MG/ML VIAL (*BKC) IV PUSH (12:00)
[2023-02-20] MEDS: ACETAMINOPHEN 500 MG TABLET 1000 MG PO (12:00)
--- NOTE | 2023-02-20 12:24 | WPDHPUPDATE1 ---
History and Physical Update Update Date/Time: 02/20/23 12:24 History and Physical has been reviewed, including an updated exam of the patient. There are NO changes in the patient's condition. Risks, benefits, and alternatives have been discussed and questions answered. Patient agrees to proceed with procedure.
[2023-02-20] MEDS: ceFAZolin 2 GM/D5W 50 ML 2 GM/50 ML BAG IVPB (12:54)
[2023-02-20] MEDS: BUPIVACAINE/EPINEPHRINE 0.5% 30 ML VIAL INFILTRATE (13:37)
--- NOTE | 2023-02-20 15:08 | W.PM.PROC2 ---
Procedure Note - Detailed Date of Procedure 02/20/23 Pre-op Diagnosis 3 cm incisional hernia Post-op Diagnosis Same Procedure Performed Laparoscopic 3 cm incisional hernia repair with mesh, da Viviana assisted Surgeon Jaya Spencer, Anesthesia General and Local (0.5% bupivacaine with epinephrine) Indications This is a 57-year-old man who presented with an umbilical bulge that he noticed over the past several months. He has a history of hand assisted laparoscopic extended right hemicolectomy and open umbilical hernia repair on 09/13/2021. He had been doing well initially after that surgery, until recently. On exam he was found to have a 3 cm incisional hernia centered on the umbilicus. This was within the scar from the previous hand assisted laparoscopic right hemicolectomy. Discussions were made with the patient about treatment options and decision was made to proceed with robotic assisted laparoscopic incisional hernia repair with mesh. Findings Robotic assisted laparoscopic incisional hernia repair was performed. The patient was found to have a 3 cm incisional hernia at the umbilicus. There was 1 small 1 cm hernia just superior to this as well. A robotic transabdominal preperitoneal approach was utilized for repair. Once a wide enough preperitoneal pocket was created, the fascia was then closed and a Bard soft mesh 15 cm x 10 cm was placed within the preperitoneal pocket. No specimens were obtained for pathology. Description of Procedure Procedure as well as risks, benefits, and alternatives were discussed with the patient. Written consent was obtained and placed in chart prior to procedure. Patient was brought back to surgical suite. He was placed supine on operating table. Time-out was done to confirm patient and procedure. He was then intubated by the anesthesia department. A bump was placed under his left hip, and the bed was flexed slightly to extend the space between his costal margin and iliac crest. His abdomen was prepped and draped in sterile fashion using chlorhexidine prep. A 5 millimeter incision was made in the left upper quadrant, and a 5 millimeter Optiview trocar was advanced through the abdominal layers under direct visualization. Once inside the abdominal cavity, carbon dioxide insufflation was used to create a pneumoperitoneum. His abdomen was inspected. An 8 millimeter incision was made in the left lower quadrant, and an 8 millimeter robotic trocar was placed under direct visualization. Another 8 millimeter incision was made in the left lateral abdomen, and an 8 millimeter robotic trocar was placed under direct visualization. 0.5% bupivacaine with epinephrine was infiltrated around each port site. The 5 millimeter port was removed, and an 8 mm robotic trocar was placed under direct visualization. The robotic arms were brought up to the patient's bedside and secured to the ports. The camera and instruments were inserted, and I then moved over to the robotic console and took control of the camera and instruments. After careful thorough inspection of the abdominal cavity, I began my dissection at the hernia. A preperitoneal plane was dissected starting in the left upper quadrant using scissors with electrocautery. The pocket was developed caudally along the left lateral abdomen and then medially towards the hernia defect. The hernia sac and peritoneum was reduced from within the hernia. Dissection was then continued to the right lateral abdomen wide enough to allow for our mesh placement. I then measured the hernia size. The hernia measured 3 cm. The fascia was closed using an 0-Stratafix running suture in a vertical fashion. A 15 cm x 10 cm Bard soft mesh was then placed within the preperitoneal pocket. This was oriented vertically with the mesh centered on the hernia defect. The mesh was then secured at the center and 4 corners using 3-0 Vicryl simple interrupted sutures. The peritoneum was then closed over the mesh
[2023-02-20] MEDS: oxyCODONE HCL (*CRX) 5 MG TAB IR PO (16:32)
== END 2023-02-20 17:00 | disposition home or self-care (01) ==
PROVIDERS: PCP Internal Medicine Medical Oncology; Visit Provider Surgery
PROC: (CPT 49593; principal; 2023-02-20 13:30)
DX: K43.2 Incisional hernia without obstruction or gangrene (principal)
CPT/HCPCS: 49593; S2900; 36415; 86850; 86900; 86901; A9270; C1781; J0690; J1100; J1170; J1596; J1885; J2250; J2405; J2704; J2710; J3010; J7120

== ENCOUNTER 2023-11-09 08:18 | Outpatient (CLI) | payer OTHER, SELFPAY ==
--- NOTE | ~2023-11-09 | CT_ITS ---
CT of the Abdomen and Pelvis: Indication: Colon cancer restaging Technique: 2.5 mm axial scans were obtained through the abdomen and pelvis following intravenous adm inistration of 100 cc of Omnipaque 350. Dose reduction technique was used on this scan by utilizing a utomated exposure control and iterative reconstruction technique. The dose-length product (DLP) was 1 063.02 mGy-cm. COMPARISON: 01/03/2023 Findings: Scans through the lung bases demonstrate patchy right basilar airspace disease, suspicious for pneumonia/infectious process. There is diffuse hepatic steatosis. The spleen, pancreas, gallbladder, adrenals and right kidney are within normal limits. 2 mm nonobstructing left renal stone present. No evidence of aortic aneurysm. No lymphadenopathy. No bowel obstruction or bowel wall thickening. Evidence of prior partial right colectomy. Images through the pelvis were performed. Urinary bladder unremarkable. No pelvic mass seen. No ascit es. Impression: No evidence of active malignancy or metastatic disease. Patchy right basilar airspace disease is suspicious for pneumonia/infectious process. Diffuse hepatic steatosis. 2 mm nonobstructing left renal stone. Reviewed, dictated and finalized at [facility]. Impression: No evidence of active malignancy or metastatic disease. Patchy right basilar airspace disease is suspicious for pneumonia/infectious pr ocess. Diffuse hepatic steatosis. 2 mm nonobstructing left renal stone.
== END 2023-11-09 08:19 | disposition home or self-care (01) ==
PROVIDERS: PCP Internal Medicine Medical Oncology; Visit Provider Internal Medicine Medical Oncology
DX: C18.4 Malignant neoplasm of transverse colon (principal); N20.0 Calculus of kidney; K76.0 Fatty (change of) liver, not elsewhere classified
CPT/HCPCS: 74177; Q9967

== ENCOUNTER 2024-07-13 08:43 | Emergency (ER) | payer OTHER, SELFPAY ==
[2024-07-13 08:45] VITALS: BP 161/95; PULSE 78; RESP 16; TEMP 36.6; O2SAT 100
--- OUTSIDE RECORDS SUMMARY | 2024-07-13 08:45 | XMS_ITS | Encounter Summary ---
Author Organization [facility] Address 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 (Primary Dx) Social History Tobacco Use Types Packs/Day Years Used Date Smoking Tobacco: Never Assessed Sex and Gender Information Value Date Recorded Sex Assigned at Not on file 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
--- OUTSIDE RECORDS SUMMARY | 2024-07-13 08:45 | XMS_ITS | Encounter Summary ---
Author Organization [facility] Address 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
--- OUTSIDE RECORDS SUMMARY | 2024-07-13 08:45 | XMS_ITS | Encounter Summary ---
Author Organization [facility] Address 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
--- OUTSIDE RECORDS SUMMARY | 2024-07-13 08:46 | XMS_ITS | Referral Summary ---
Author Organization [facility] Address [address] [place] [address] Care Team Providers Care Sr. 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 2-3 times a week 11/19/2021 Q2: How many drinks containi ng alcohol do you have on a typical day when you are drinking? 1 or 2 11/19/2021 Q3: How often do you have si x or more drinks on one occasion? 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 Not on file Not on file Last Filed Vital Signs Vital Sign Reading Time Taken Comments Blood Pressure 138/91 01/18/2024 8:20 AM SUPERVISOR POST WAVE Pulse 67 01/18/2024 8:20 AM SUPERVISOR POST WAVE Temperature 36.6 C (97.9 F) 01/18/2024 8:20 AM SUPERVISOR POST WAVE Respiratory Rate 18 01/18/2024 8:20 AM SUPERVISOR POST WAVE Oxygen Saturation 96% 01/18/2024 8:2 0 AM SUPERVISOR POST WAVE Inhaled Oxygen Concentration - - Weight 107.9 kg (237 lb 14 oz) 01/18/20 8:20 AM SUPERVISOR POST WAVE with boots Height 177.8 cm (5' 10) 09/10/2023 8:4 0 AM CDT Body Mass Index 34.13 09/10/2023 8:40 AM CDT Plan of Treatment Not on file Procedures Procedure Name Priority Date/Time Associated Diagnosis Comments COLONOSCOPY Routine 07/25/2022 2:49 PM CDT from Last 3 Months or Most Recently Relevant to Health Maintenance Results * Colonoscopy (07/25/2022 2:49 PM CDT) Anatomical Region Laterality Modality Other [facility] Provider ENDOSCOPY PROCEDURES Leidy l Result from Last 3 Months or Most Recently Relevant to Health Maintenance [facility] PPO [facility] PPO [facility] CHOICE PLUS [facility] H[facility]/PPO Address: [address] [address] [place] [address] [facility] CHOICE PLUS [facility] H[facility]/PPO Address: [address] [address] [place] [address] [facility] CHOICE PLUS [facility] H[facility]/PPO Address: [address] [address] [place] [address] Care Teams Sr. Pricing Analyst Relationship Specialty Start Date End Date Shanell Lind PA [address] [place] [id number] PCP - General Nurse Practitioner 11/19/21 Maycol Hillman DO [address] [place] [address] MEDICAL ONCOLOGY, [address] [address] Medical Oncologist/Neuropsychologist Hematology and Oncology 12/11/22
--- OUTSIDE RECORDS SUMMARY | 2024-07-13 08:46 | XMS_ITS | Encounter Summary ---
Author Organization [facility] Address 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
--- OUTSIDE RECORDS SUMMARY | 2024-07-13 08:46 | XMS_ITS | Clinical Summary ---
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 Staging:Clinical stage from 11/18/2021:Stage I(cT2, cN0, cM0) - Signed by Maycol Hillman DO on 11/18/2021 Superior glenoid labrum lesion of shoulder 04/20 Pain in shoulder 12/14/2015 Surgical History Surgery Date Site/Laterality Comments FLUORO GUIDED ASPIRATION OR INJECTION INTERMEDIATE JOINT RIGHT 08/26/2019 Right Medical History Medical History Date Comments No pertinent past medical history Family History Medical History Relation Name Comments Stroke Brother Hypertension Father Diallo Family history of hypertension - (Added by TW Conv) Stroke Father Diallo Family history of cerebrovascular accident (CVA) - (Added by JUAN ANTONIO Conv) No Known Problems Maternal Grandfather No Known Problems Maternal Grandmother No Known Problems Mother Stroke Paternal Grandfather No Known Problems Paternal Grandmother Relation Name Status Comments Brother Father Diallo Maternal Grandfather Maternal Grandmother Mother Alive Paternal Grandfather Paternal Grandmother Social History Tobacco Use Types Packs/Day Years [...] on file Legal Sex Male 11:36 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 Gender Identity Not on file Sexual Orientation Not on file Occupation Industry Job Start Date Job End Date [facility] Not on file Not on file Not on file Obstetrics History Last Filed Vital Signs Vital Sign Reading Time Taken Comments Blood Pressure 138/91 01/18/2024 8:20 AM SALAD 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 Pulse 67 01/18/2024 8:20 AM SALAD 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 Temperature 36.6 C (97.9 F) 01/18/2024 8:20 AM SALAD 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 Respiratory Rate 18 01/18/2024 8:20 AM SALAD 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 Oxygen Saturation 96% 01/18/2024 8:2 0 AM SALAD 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 Inhaled Oxygen Concentration - - Weight 107.9 kg (237 lb 14 oz) 01/18/20 24 8:20 AM SALAD 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 with boots Height 177.8 cm (5' 10) 09/10/2023 8:4 0 AM CDT Body Mass Index 34.13 09/10/2023 8:40 AM CDT Plan of Treatment Health Maintenance Due Date Last Done Comments Depression Screening 1966 Hepatitis C Screening 1966 Prostate Cancer Screening-PSA 1966 DTaP/Tdap/Td Vaccine (1 - Tdap) 1977 Hepatitis B Screening 1984 Regular Well Visit/Exam 18-64 1984 Zoster Vaccine (1 of 2) 2016 Influenza Vaccine (Season Ended) 2024 Colon Cancer Screening-Colonoscopy 07/25/2032 07/25/2022 Colon Cancer Screening-CT Colonography Discontinued 07/25/2022 Colon Cancer Screening-DNA Stool Discontinued 07/26/19 Colon Cancer Screening-FIT Discontinued 07/25/2022 Colon Cancer Screening-Sigmoidoscopy Discontinued 07/25/2022 Pneumococcal vaccine <65 Aged Out No longer eligible based on patient's age to complete this topic Procedures Procedure Name Priority Date/Time Associated Diagnosis Comments COLONOSCOPY Routine 07/25/2022 2:49 PM CDT from Last 3 Months or Most Recently Relevant to Health Maintenance Results * Colonoscopy (07/25/2022 2:49 PM CDT) Anatomical Region Laterality Modality Other Historical Provider ENDOSCOPY PROCEDURES Leidy l Result from Last 3 Months or Most Recently Relevant to Health Maintenance Insurance [facility] HMO/POS [facility] PPO [facility] PPO [facility] CHOICE PLUS CHOICE PLUS [facility] CHOICE PLUS Care Teams Datastage Consultant Relationship Specialty Start Date End Date Shanell Lind PA [address] [place] [phone] PCP - General Nurse Practitioner 11/19/21 Maycol Hillman DO [address] [place] [address] MEDICAL ONCOLOGY, [address] [address] Medical Oncologist/Communications Equipment Supervisor Hematology and Oncology 12/11/22
--- OUTSIDE RECORDS SUMMARY | 2024-07-13 08:46 | XMS_ITS ---
Author Organization [facility] Address [address] [place] [address] Care Team Providers Care Telephone Technician Name Role Phone Shanell Lind Primary Care Provider + Maycol Hillman DO Unavailable [phone] Active Problems Problem Noted Date Diagnosed Date Malignant neoplasm of transverse colon Cancer Staging:Clinical stage from 11/18/2021:Stage I(cT2, cN0, cM0) - Signed by Maycol Hillman DO on 11/18/2021 Superior glenoid labrum lesion of shoulder 04/20 Pain in shoulder 12/14/2015 Current Treatment and Therapy Plans No current plan information found. Past Treatment and Therapy Plans No past plan information found. Lifetime Dose Tracking * Chemical Lifetime Dose Automatic Entry Manual Entr y Fluoro Time 0.07 minutes 0.07 minutes 0 minutes
--- OUTSIDE RECORDS SUMMARY | 2024-07-13 08:46 | XMS_ITS | Encounter Summary ---
Author Organization [facility] Address [address] [place] [address] Care Team Providers Care Senior Clinical Research Associate Name Role Phone Richard Howell MD Primary Care Provider Unavail able Encounter Details Date Type Department Care Team (Latest Contact Info) Description 04/10/2000 Outpatient Historical HIS [facility] IAN Stewart, Hector Monique MD NO ADDRESS ON FILE Follow-up examination, following unspecified surgery (Primary Dx) Social History Tobacco Use Types Packs/Day Years Used Date Smoking Tobacco: Never Assessed Sex and Gender Information Value Date Recorded Sex Assigned at Not on file Legal 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
--- OUTSIDE RECORDS SUMMARY | 2024-07-13 08:46 | XMS_ITS | Encounter Summary ---
Author Organization [facility] Address [address] [place] [address] Care Team Providers Care Dean Of Students Name Role Phone Richard Howell MD Primary Care Provider Unavail able Encounter Details Date Type Department Care Team (Latest Contact Info) Description 04/03/2000 Outpatient Historical HIS [facility] Dominic Davis MD Pneumonia, organism unspecified(486) (Primary Dx) Social History Tobacco Use Types Packs/Day Years Used Date Smoking Tobacco: Never Assessed Sex and Gender Information Value Date Recorded Sex Assigned at Not on file Legal Sex Male 3:11 AM SURGICAL SCHEDULER Gender Identity Not on file Sexual Orientation Not on file documented as of this encounter Plan of Treatment Not on file documented as of this encounter Visit Diagnoses Diagnosis Pneumonia, organism unspecified(486)- Primary Pneumonia, organism unspecified documented in this encounter Care Teams Dean Of Students Relationship Specialty Start Date End Date Richard Howell MD NO ADDRESS ON FILE PCP - General 01/15/01 documented as of this encounter
--- OUTSIDE RECORDS SUMMARY | 2024-07-13 08:46 | XMS_ITS | Encounter Summary ---
Author Organization [employer] Address [address] [place] [address] Care Team Providers Care Press Puller Name Role Phone Richard Howell MD Primary Care Provider Unavail able Encounter Details Date Type Department Care Team (Latest Contact Info) Description 03/14/2000 Inpatient Historical HIS [facility] Matthew Su MD [address] [place] [id number] Pneumococcal pneumonia (streptococcus pneumoniae pneumonia) (Primary Dx) Social History Tobacco Use Types Packs/Day Years Used Date Smoking Tobacco: Never Assessed Sex and Gender Information Value Date Recorded Sex Assigned at Not on file Legal Sex Male 3:11 AM OVEN DUMPER Gender Identity Not on file Sexual Orientation Not on file documented as of this encounter Plan of Treatment Not on file documented as of this encounter Visit Diagnoses Diagnosis Pneumococcal pneumonia (streptococcus pneumoniae pneumonia)- Primary documented in this encounter Care Teams Press Puller Relationship Specialty Start Date End Date Richard Howell MD NO ADDRESS ON FILE PCP - General 01/15/01 documented as of this encounter
--- OUTSIDE RECORDS SUMMARY | 2024-07-13 08:46 | XMS_ITS | Encounter Summary ---
Author Organization [employer] Address [address] [place] [address] Care Team Providers Care Cloth Desizing Range Operator Chief Name Role Phone Richard Howell MD Primary Care Provider Unavail able Encounter Details Date Type Department Care Team (Late st Contact Info) Description 05/29/2000 Outpatient Historical HIS [facility] Richard Howell MD NO ADDRESS ON FILE Social History Tobacco Use Types Packs/Day Years Used Date Smoking Tobacco: Never Assessed Sex and Gender Information Value Date Recorded Sex Assigned at Not on file Legal Sex Male 3:11 AM RODEO RIDER Gender Identity Not on file Sexual Orientation Not on file documented as of this encounter Plan of Treatment Not on file documented as of this encounter Visit Diagnoses Not on filedocumented in this encounter Care Teams Cloth Desizing Range Operator Chief Relationship Specialty Start Date End Date Richard Howell MD NO ADDRESS ON FILE PCP - General 01/15/01 documented as of this encounter
--- OUTSIDE RECORDS SUMMARY | 2024-07-13 08:46 | XMS_ITS | Encounter Summary ---
Author Organization [facility] Address [address] [place] [address] Care Team Providers Care Public Housing Manager Name Role Phone Richard Howell MD Primary Care Provider Unavail able Encounter Details Date Type Department Care Team (Latest Contact Info) Description 04/27/2000 Outpatient Historical HIS [facility] Dominic Davis MD Pneumonia, organism unspecified(486) (Primary Dx) Social History Tobacco Use Types Packs/Day Years Used Date Smoking Tobacco: Never Assessed Sex and Gender Information Value Date Recorded Sex Assigned at Not on file Legal Sex Male 3:11 AM E LEARNING DESIGNER Gender Identity Not on file Sexual Orientation Not on file documented as of this encounter Plan of Treatment Not on file documented as of this encounter Visit Diagnoses Diagnosis Pneumonia, organism unspecified(486)- Primary Pneumonia, organism unspecified documented in this encounter Care Teams Public Housing Manager Relationship Specialty Start Date End Date Richard Howell MD NO ADDRESS ON FILE PCP - General 01/15/01 documented as of this encounter
--- OUTSIDE RECORDS SUMMARY | 2024-07-13 08:46 | XMS_ITS | Encounter Summary ---
Author Organization [employer] Address 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
--- OUTSIDE RECORDS SUMMARY | 2024-07-13 08:46 | XMS_ITS | Clinical Summary ---
Author Organization [facility] Address [address] [place] [address] Care Team Providers Care Day Care Attendant Name Role Phone Richard Howell MD Primary Care Provider Unavail able Social History Tobacco Use Types Packs/Day Years Used Date Smoking Tobacco: Never Assessed Sex and Gender Information Value Date Recorded Sex Assigned at Not on file Legal Sex Male 3:11 AM DISTRIBUTION CLERK Gender Identity Not on file Sexual Orientation Not on file Plan of Treatment Health Maintenance Due Date Last Done Comments DTAP/TDAP/TD VACCINES (1 - Tdap) 1985 HEPATITIS B VACCINES (1 of 3 - 19+ 3-dose series) 08/07 COLORECTAL SCREENING 09/05/2011 Colorectal Cancer Screening 09/05/2011 FIT-DNA Q 3 years 09/05/2011 FIT/FOBT Q 1 year 09/05/2011 Flex Sig/CT Colonography Q 5 years 09/05/2011 ZOSTER VACCINE (1 of 2) 2016 INFLUENZA VACCINE (#1) 2023 Care Teams Day Care Attendant Relationship Specialty Start Date End Date Richard Howell MD NO ADDRESS ON FILE PCP - General 01/15/01
--- OUTSIDE RECORDS SUMMARY | 2024-07-13 08:46 | XMS_ITS | Encounter Summary ---
Author Organization [facility] Address [address] [place] [address] Care Team Providers Care Case Management Associate Name Role Phone Richard Howell MD Primary Care Provider Unavail able Encounter Details Date Type Department Care Team (Late st Contact Info) Description 06/17/2002 Outpatient Historical HIS [facility] [address] [facility] [address] [place] [address] PNEUMONIA, ORGANISM NOS (Primary Dx) Social History Tobacco Use Types Packs/Day Years Used Date Smoking Tobacco: Never Assessed Sex and Gender Information Value Date Recorded Sex Assigned at Not on file Legal Sex Male 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
--- OUTSIDE RECORDS SUMMARY | 2024-07-13 08:46 | XMS_ITS | Encounter Summary ---
Author Organization [employer] Address [address] [place] [address] Care Team Providers Care Supervisor Nurse Name Role Phone Richard Howell MD Primary Care Provider Unavail able Encounter Details Date Type Department Care Team (Late st Contact Info) Description 03/21/2000 Inpatient Historical HIS PATIENT IN A BED Dominic Salazar MD Hastings, Thomas F, MD [address] [facility] [address] [place] [address] Empyema without mention of fistula (CMS/HCC) (Primary Dx) Social History Tobacco Use Types Packs/Day Years Used Date Smoking Tobacco: Never Assessed Sex and Gender Information Value Date Recorded Sex Assigned at Not on file Legal Sex Male 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
--- OUTSIDE RECORDS SUMMARY | 2024-07-13 08:46 | XMS_ITS | Encounter Summary ---
Author Organization [facility] Address [address] [place] [address] Care Team Providers Care Valet Manager Name Role Phone Richard Howell MD Primary Care Provider Unavail able Encounter Details Date Type Department Care Team (Latest Contact Info) Description 04/17/2000 Outpatient Historical HIS [facility] Dominic Davis MD Pneumonia, organism unspecified(486) (Primary Dx) Social History Tobacco Use Types Packs/Day Years Used Date Smoking Tobacco: Never Assessed Sex and Gender Information Value Date Recorded Sex Assigned at Not on file Legal Sex Male 3:11 AM PATIENT MANAGER Gender Identity Not on file Sexual Orientation Not on file documented as of this encounter Plan of Treatment Not on file documented as of this encounter Visit Diagnoses Diagnosis Pneumonia, organism unspecified(486)- Primary Pneumonia, organism unspecified documented in this encounter Care Teams Valet Manager Relationship Specialty Start Date End Date Richard Howell MD NO ADDRESS ON FILE PCP - General 01/15/01 documented as of this encounter
--- OUTSIDE RECORDS SUMMARY | 2024-07-13 08:46 | XMS_ITS | Encounter Summary ---
Author Organization [facility] Address [address] [place] [address] Care Team Providers Care Netezza Architect Name Role Phone Richard Howell MD Primary Care Provider Unavail able Encounter Details Date Type Department Care Team (Latest Contact Info) Description 12/07/2000 Outpatient Historical HIS [facility] IAN Salazar, Dominic Mar MD BACTERIAL PNEUMONIA NOS (Primary Dx) Social History Tobacco Use Types Packs/Day Years Used Date Smoking Tobacco: Never Assessed Sex and Gender Information Value Date Recorded Sex Assigned at Not on file Legal Sex Male 3:11 AM FLIGHT/TRANSPORT NURSE Gender Identity Not on file Sexual Orientation Not on file documented as of this encounter Plan of Treatment Not on file documented as of this encounter Visit Diagnoses Diagnosis Bacterial pneumonia, unspecified- Primary documented in this encounter Care Teams Netezza Architect Relationship Specialty Start Date End Date Richard Howell MD NO ADDRESS ON FILE PCP - General 01/15/01 documented as of this encounter
--- OUTSIDE RECORDS SUMMARY | 2024-07-13 08:46 | XMS_ITS | Encounter Summary ---
Author Organization [employer] [address] Address [address] [place] [address] Care Team Providers Care Chemistry Technologist Name Role Phone Richard Howell MD Primary Care Provider Unavail able Encounter Details Date Type Department Care Team (Late st Contact Info) Description 08/21/2003 Outpatient Historical HIS [facility] Richard Howell MD NO ADDRESS ON FILE Social History Tobacco Use Types Packs/Day Years Used Date Smoking Tobacco: Never Assessed Sex and Gender Information Value Date Recorded Sex Assigned at Not on file Legal Sex Male 3:11 AM LINING SCRUBBER Gender Identity Not on file Sexual Orientation Not on file documented as of this encounter Plan of Treatment Not on file documented as of this encounter Visit Diagnoses Not on filedocumented in this encounter Care Teams Chemistry Technologist Relationship Specialty Start Date End Date Richard Howell MD NO ADDRESS ON FILE PCP - General 01/15/01 documented as of this encounter
--- OUTSIDE RECORDS SUMMARY | 2024-07-13 08:46 | XMS_ITS | Encounter Summary ---
Author Organization [facility] Address 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
--- OUTSIDE RECORDS SUMMARY | 2024-07-13 08:46 | XMS_ITS | Encounter Summary ---
Author Organization [employer] Address [address] [place] [address] Care Team Providers Care S3B Multi Sensor Operator Name Role Phone Richard Howell MD Primary Care Provider Unavail able Encounter Details Date Type Department Care Team (Late st Contact Info) Description 05/29/2000 Outpatient Historical HIS [facility] Richard Howell MD NO ADDRESS ON FILE Social History Tobacco Use Types Packs/Day Years Used Date Smoking Tobacco: Never Assessed Sex and Gender Information Value Date Recorded Sex Assigned at Not on file Legal Sex Male 3:11 AM UTILIZATION REVIEWER Gender Identity Not on file Sexual Orientation Not on file documented as of this encounter Plan of Treatment Not on file documented as of this encounter Visit Diagnoses Not on filedocumented in this encounter Care Teams S3B Multi Sensor Operator Relationship Specialty Start Date End Date Richard Howell MD NO ADDRESS ON FILE PCP - General 01/15/01 documented as of this encounter
--- OUTSIDE RECORDS SUMMARY | 2024-07-13 08:46 | XMS_ITS | Encounter Summary ---
Author Organization [employer] [facility] Address 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
--- OUTSIDE RECORDS SUMMARY | 2024-07-13 08:46 | XMS_ITS | Encounter Summary ---
Author Organization [facility] Address [address] [place] [address] Care Team Providers Care Recreation Director Name Role Phone Richard Howell MD Primary Care Provider Unavail able Encounter Details Date Type Department Care Team (Latest Contact Info) Description 07/09/2000 Outpatient Historical HIS [facility] Dominic Davis MD Pulmonary collapse (Primary Dx) Social History Tobacco Use Types Packs/Day Years Used Date Smoking Tobacco: Never Assessed Sex and Gender Information Value Date Recorded Sex Assigned at Not on file Legal Sex Male 3:11 AM GOLD MARKER Gender Identity Not on file Sexual Orientation Not on file documented as of this encounter Plan of Treatment Not on file documented as of this encounter Visit Diagnoses Diagnosis Pulmonary collapse- Primary documented in this encounter Care Teams Recreation Director Relationship Specialty Start Date End Date Richard Howell MD NO ADDRESS ON FILE PCP - General 01/15/01 documented as of this encounter
--- OUTSIDE RECORDS SUMMARY | 2024-07-13 08:46 | XMS_ITS | Encounter Summary ---
Author Organization [employer] Address 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
--- OUTSIDE RECORDS SUMMARY | 2024-07-13 08:46 | XMS_ITS | Encounter Summary ---
Author Organization [employer] Address 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
--- OUTSIDE RECORDS SUMMARY | 2024-07-13 08:46 | XMS_ITS | Encounter Summary ---
Author Organization [email or web address] Address 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
--- OUTSIDE RECORDS SUMMARY | 2024-07-13 08:46 | XMS_ITS | Encounter Summary ---
Author Organization [facility] Address [address] [place] [address] Care Team Providers Care Wedding Decorator Name Role Phone Richard Howell MD Primary Care Provider Unavail able Encounter Details Date Type Department Care Team (Latest Contact Info) Description 08/21/2003 Outpatient Historical HIS [facility] Richard Lewis MD NO ADDRESS ON FILE INSOMNIA NEC (Primary Dx) Social History Tobacco Use Types Packs/Day Years Used Date Smoking Tobacco: Never Assessed Sex and Gender Information Value Date Recorded Sex Assigned at Not on file Legal Sex Male 3:11 AM HAND TACKER Gender Identity Not on file Sexual Orientation Not on file documented as of this encounter Plan of Treatment Not on file documented as of this encounter Visit Diagnoses Diagnosis Insomnia, unspecified- Primary documented in this encounter Care Teams Wedding Decorator Relationship Specialty Start Date End Date Richard Howell MD NO ADDRESS ON FILE PCP - General 01/15/01 documented as of this encounter
--- OUTSIDE RECORDS SUMMARY | 2024-07-13 09:15 | XMS_ITS | Encounter Summary ---
Author Organization [facility] Address 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
--- OUTSIDE RECORDS SUMMARY | 2024-07-13 09:15 | XMS_ITS | Encounter Summary ---
Author Organization [employer] Address [address] [place] [address] Care Team Providers Care Sewer Line Photo Inspector Name Role Phone Richard Howell MD Primary Care Provider Unavail able Encounter Details Date Type Department Care Team (Latest Contact Info) Description 03/14/2000 Inpatient Historical [facility] Matthew Su MD [address] [place] [id number] Pneumococcal pneumonia (streptococcus pneumoniae pneumonia) (Primary Dx) Social History Tobacco Use Types Packs/Day Years Used Date Smoking Tobacco: Never Assessed Sex and Gender Information Value Date Recorded Sex Assigned at Not on file 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
--- OUTSIDE RECORDS SUMMARY | 2024-07-13 09:15 | XMS_ITS | Encounter Summary ---
Author Organization [facility] Address 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
--- OUTSIDE RECORDS SUMMARY | 2024-07-13 09:15 | XMS_ITS | Encounter Summary ---
Author Organization [place] [facility] Address 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
--- OUTSIDE RECORDS SUMMARY | 2024-07-13 09:15 | XMS_ITS | Encounter Summary ---
Author Organization [employer] Address [address] [place] [address] Care Team Providers Care Director Of Land Name Role Phone Richard Howell MD Primary Care Provider Unavail able Encounter Details Date Type Department Care Team (Late st Contact Info) Description 06/17/2002 Outpatient Historical HIS [facility] Richard Howell MD NO ADDRESS ON FILE Social History Tobacco Use Types Packs/Day Years Used Date Smoking Tobacco: Never Assessed Sex and Gender Information Value Date Recorded Sex Assigned at Not on file Legal Sex Male 3:11 AM CONTROL OFFICER Gender Identity Not on file Sexual Orientation Not on file documented as of this encounter Plan of Treatment Not on file documented as of this encounter Visit Diagnoses Not on filedocumented in this encounter Care Teams Director Of Land Relationship Specialty Start Date End Date Richard Howell MD NO ADDRESS ON FILE PCP - General 01/15/01 documented as of this encounter
--- OUTSIDE RECORDS SUMMARY | 2024-07-13 09:15 | XMS_ITS | Encounter Summary ---
Author Organization [employer] Address 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
--- OUTSIDE RECORDS SUMMARY | 2024-07-13 09:15 | XMS_ITS | Encounter Summary ---
Author Organization [facility] Address 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
--- OUTSIDE RECORDS SUMMARY | 2024-07-13 09:15 | XMS_ITS | Referral Summary ---
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 Not on file Not on file Not on file Last Filed Vital Signs Vital Sign Reading Time Taken Comments Blood Pressure 138/91 01/18/2024 8:20 AM RACING SECRETARY AND HANDICAPPER Pulse 67 01/18/2024 8:20 AM RACING SECRETARY AND HANDICAPPER Temperature 36.6 C (97.9 F) 01/18/2024 8:20 AM RACING SECRETARY AND HANDICAPPER Respiratory Rate 18 01/18/2024 8:20 AM RACING SECRETARY AND HANDICAPPER Oxygen Saturation 96% 01/18/2024 8:2 0 AM RACING SECRETARY AND HANDICAPPER Inhaled Oxygen Concentration - - Weight 107.9 kg (237 lb 14 oz) 01/18/20 8:20 AM RACING SECRETARY AND HANDICAPPER with boots Height 177.8 cm (5' 10) 09/10/2023 8:4 0 AM CDT Body Mass Index 34.13 09/10/2023 8:40 AM CDT Plan of Treatment Not on file Procedures Procedure Name Priority Date/Time Associated Diagnosis Comments COLONOSCOPY Routine 07/25/2022 2:49 PM CDT from Last 3 Months or Most Recently Relevant to Health Maintenance Results * Colonoscopy (07/25/2022 2:49 PM CDT) Anatomical Region Laterality Modality Other [facility] Provider ENDOSCOPY PROCEDURES Leidy l Result from Last 3 Months or Most Recently Relevant to Health Maintenance [facility] PPO [facility] PPO [facility] PLUS [facility] [employer] Care Teams Linux Systems Engineer Relationship Specialty Start Date End Date Shanell Lind PA [address] [place] [id number] PCP - General Nurse Practitioner 11/19/21 Maycol Hillman DO [address] [place] [address] MEDICAL ONCOLOGY, [address] [address] Medical Oncologist/Auto Body Mechanic Hematology and Oncology 12/11/22
--- OUTSIDE RECORDS SUMMARY | 2024-07-13 09:15 | XMS_ITS | Clinical Summary ---
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 Gender Identity Not on file Sexual Orientation Not on file Occupation Industry Job Start Date Job End Date [facility] Not on file Not on file Not on file Obstetrics History Last Filed Vital Signs Vital Sign Reading Time Taken Comments Blood Pressure 138/91 01/18/2024 8:20 AM TRUCK DRIVER SUPERVISOR Pulse 67 01/18/2024 8:20 AM TRUCK DRIVER SUPERVISOR Temperature 36.6 C (97.9 F) 01/18/2024 8:20 AM TRUCK DRIVER SUPERVISOR Respiratory Rate 18 01/18/2024 8:20 AM TRUCK DRIVER SUPERVISOR Oxygen Saturation 96% 01/18/2024 8:2 0 AM TRUCK DRIVER SUPERVISOR Inhaled Oxygen Concentration - - Weight 107.9 kg (237 lb 14 oz) 01/18/20 24 8:20 AM TRUCK DRIVER SUPERVISOR with boots Height 177.8 cm (5' 10) [...] Most Recently Relevant to Health Maintenance Insurance [facility] H[facility]/POS [facility]PO [facility] PPO [facility] CHOICE PLUS CHOICE PLUS [facility] CHOICE PLUS Care Teams Mva Still Operator Relationship Specialty Start Date End Date Shanell Lind PA [address] [place] [id number] PCP - General Nurse Practitioner 11/19/21 Maycol Hillman DO [address] [place] [address] MEDICAL ONCOLOGY, [address] [address] Medical Oncologist/Gold Reclaimer Hematology and Oncology 12/11/22
--- OUTSIDE RECORDS SUMMARY | 2024-07-13 09:15 | XMS_ITS | Clinical Summary ---
Author Organization [facility] Address [address] [place] [address] Care Team Providers Care Instructor Looping Name Role Phone Richard Howell MD Primary Care Provider Unavail able Social History Tobacco Use Types Packs/Day Years Used Date Smoking Tobacco: Never Assessed Sex and Gender Information Value Date Recorded Sex Assigned at Not on file Legal Sex Male 3:11 AM MANAGER FIELD SERVICES Gender Identity Not on file Sexual Orientation [...] 2016 INFLUENZA VACCINE (#1) 2023 Care Teams Instructor Looping Relationship Specialty Start Date End Date Richard Howell MD NO ADDRESS ON FILE PCP - General 01/15/01
--- OUTSIDE RECORDS SUMMARY | 2024-07-13 09:15 | XMS_ITS | Encounter Summary ---
Author Organization [facility] Address 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
--- OUTSIDE RECORDS SUMMARY | 2024-07-13 09:15 | XMS_ITS | Encounter Summary ---
Author Organization [employer] Address [address] [place] [address] Care Team Providers Care Kiln Maintenance Name Role Phone Richard Howell MD Primary Care Provider Unavail able Encounter Details Date Type Department Care Team (Late st Contact Info) Description 12/24/2000 Outpatient Historical HIS [facility] Richard Howell MD NO ADDRESS ON FILE Social History Tobacco Use Types Packs/Day Years Used Date Smoking Tobacco: Never Assessed Sex and Gender Information Value Date Recorded Sex Assigned at Not on file Legal Sex Male 3:11 AM CATERING SERVER Gender Identity Not on file Sexual Orientation Not on file documented as of this encounter Plan of Treatment Not on file documented as of this encounter Visit Diagnoses Not on filedocumented in this encounter Care Teams Kiln Maintenance Relationship Specialty Start Date End Date Richard Howell MD NO ADDRESS ON FILE PCP - General 01/15/01 documented as of this encounter
--- OUTSIDE RECORDS SUMMARY | 2024-07-13 09:15 | XMS_ITS | Encounter Summary ---
Author Organization [employer] Address [address] [place] [address] Care Team Providers Care Space Technologist Name Role Phone Richard Howell MD Primary Care Provider Unavail able Encounter Details Date Type Department Care Team (Late st Contact Info) Description 03/21/2000 Inpatient Historical HIS PATIENT IN A BED Dominic Salazar MD Hastings, Thomas F, MD [address] [facility] [address] [place] [address] Empyema without mention of fistula (CMS/HCC) (Primary Dx) Social History Tobacco Use Types Packs/Day Years Used Date Smoking Tobacco: Never Assessed Sex and Gender Information Value Date Recorded Sex Assigned at Not on file Legal Sex Male 3:11 AM HANDBAG FINISHER Gender Identity Not on file Sexual Orientation Not on file documented as of this encounter Plan of Treatment Not on file documented as of this encounter Visit Diagnoses Diagnosis Empyema without mention of fistula (CMS/HCC)- Primary Empyema without mention of fistula documented in this encounter Care Teams Space Technologist Relationship Specialty Start Date End Date Richard Howell MD NO ADDRESS ON FILE PCP - General 01/15/01 documented as of this encounter
--- OUTSIDE RECORDS SUMMARY | 2024-07-13 09:15 | XMS_ITS | Encounter Summary ---
Author Organization [employer] Address [address] [place] [address] Care Team Providers Care Production Control Pegboard Clerk Name Role Phone Richard Howell MD Primary Care Provider Unavail able Encounter Details Date Type Department Care Team (Late st Contact Info) Description 05/29/2000 Outpatient Historical HIS [facility] Richard Howell MD NO ADDRESS ON FILE Social History Tobacco Use Types Packs/Day Years Used Date Smoking Tobacco: Never Assessed Sex and Gender Information Value Date Recorded Sex Assigned at Not on file Legal Sex Male 3:11 AM SHUTTLE INSPECTOR Gender Identity Not on file Sexual Orientation Not on file documented as of this encounter Plan of Treatment Not on file documented as of this encounter Visit Diagnoses Not on filedocumented in this encounter Care Teams Production Control Pegboard Clerk Relationship Specialty Start Date End Date Richard Howell MD NO ADDRESS ON FILE PCP - General 01/15/01 documented as of this encounter
--- OUTSIDE RECORDS SUMMARY | 2024-07-13 09:15 | XMS_ITS | Encounter Summary ---
Author Organization [facility] Address [address] [place] [address] Care Team Providers Care Clinical Pharmacy Coordinator Name Role Phone Richard Howell MD Primary Care Provider Unavail able Encounter Details Date Type Department Care Team (Latest Contact Info) Description 12/07/2000 Outpatient Historical HIS [facility] IAN Salazar, Dominic Mar MD BACTERIAL PNEUMONIA NOS (Primary Dx) Social History Tobacco Use Types Packs/Day Years Used Date Smoking Tobacco: Never Assessed Sex and Gender Information Value Date Recorded Sex Assigned at Not on file Legal Sex Male 3:11 AM PUBLIC RELATIONS MANAGER Gender Identity Not on file Sexual Orientation Not on file documented as of this encounter Plan of Treatment Not on file documented as of this encounter Visit Diagnoses Diagnosis Bacterial pneumonia, unspecified- Primary documented in this encounter Care Teams Clinical Pharmacy Coordinator Relationship Specialty Start Date End Date Richard Howell MD NO ADDRESS ON FILE PCP - General 01/15/01 documented as of this encounter
--- OUTSIDE RECORDS SUMMARY | 2024-07-13 09:15 | XMS_ITS | Encounter Summary ---
Author Organization [email or web address] Address 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
--- OUTSIDE RECORDS SUMMARY | 2024-07-13 09:15 | XMS_ITS | Encounter Summary ---
Author Organization [employer] Address 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
--- OUTSIDE RECORDS SUMMARY | 2024-07-13 09:15 | XMS_ITS | Encounter Summary ---
Author Organization [facility] Address [address] [place] [address] Care Team Providers Care Waste Management Specialist Name Role Phone Richard Howell MD Primary Care Provider Unavail able Encounter Details Date Type Department Care Team (Latest Contact Info) Description 04/03/2000 Outpatient Historical HIS [facility] Dominic Davis MD Pneumonia, organism unspecified(486) (Primary Dx) Social History Tobacco Use Types Packs/Day Years Used Date Smoking Tobacco: Never Assessed Sex and Gender Information Value Date Recorded Sex Assigned at Not on file Legal Sex Male 3:11 AM JAILER CHIEF Gender Identity Not on file Sexual Orientation Not on file documented as of this encounter Plan of Treatment Not on file documented as of this encounter Visit Diagnoses Diagnosis Pneumonia, organism unspecified(486)- Primary Pneumonia, organism unspecified documented in this encounter Care Teams Waste Management Specialist Relationship Specialty Start Date End Date Richard Howell MD NO ADDRESS ON FILE PCP - General 01/15/01 documented as of this encounter
--- OUTSIDE RECORDS SUMMARY | 2024-07-13 09:15 | XMS_ITS | Encounter Summary ---
Author Organization [employer] Address 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
--- OUTSIDE RECORDS SUMMARY | 2024-07-13 09:15 | XMS_ITS | Encounter Summary ---
Author Organization [facility] Address 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
--- OUTSIDE RECORDS SUMMARY | 2024-07-13 09:15 | XMS_ITS | Encounter Summary ---
Author Organization [facility] Address [address] [place] [address] Care Team Providers Care Branding Machine Operator Name Role Phone Richard Howell MD Primary Care Provider Unavail able Encounter Details Date Type Department Care Team (Late st Contact Info) Description 05/29/2000 Outpatient Historical HIS [facility] Richard Lewis MD NO ADDRESS ON FILE Social History Tobacco Use Types Packs/Day Years Used Date Smoking Tobacco: Never Assessed Sex and Gender Information Value Date Recorded Sex Assigned at Not on file Legal Sex Male 3:11 AM CONTENT STRATEGIST Gender Identity Not on file Sexual Orientation Not on file documented as of this encounter Plan of Treatment Not on file documented as of this encounter Visit Diagnoses Not on filedocumented in this encounter Care Teams Branding Machine Operator Relationship Specialty Start Date End Date Richard Howell MD NO ADDRESS ON FILE PCP - General 01/15/01 documented as of this encounter
--- OUTSIDE RECORDS SUMMARY | 2024-07-13 09:15 | XMS_ITS | Encounter Summary ---
Author Organization [employer] Address 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
--- OUTSIDE RECORDS SUMMARY | 2024-07-13 09:15 | XMS_ITS | Encounter Summary ---
Author Organization [employer] Address 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
--- OUTSIDE RECORDS SUMMARY | 2024-07-13 09:15 | XMS_ITS | Encounter Summary ---
Author Organization [employer] Address [address] [place] [address] Care Team Providers Care Aws Consultant Name Role Phone Richard Howell MD Primary Care Provider Unavail able Encounter Details Date Type Department Care Team (Late st Contact Info) Description 10/13/2002 Outpatient Historical HIS [facility] Isaias Nino MD [address] [place] [address] Social History Tobacco Use Types Packs/Day Years Used Date Smoking Tobacco: Never Assessed Sex and Gender Information Value Date Recorded Sex Assigned at Not on file Legal Sex Male 3:11 AM ELECTRICAL TESTER Gender Identity Not on file Sexual Orientation Not on file documented as of this encounter Plan of Treatment Not on file documented as of this encounter Visit Diagnoses Not on filedocumented in this encounter Care Teams Aws Consultant Relationship Specialty Start Date End Date Richard Howell MD NO ADDRESS ON FILE PCP - General 01/15/01 documented as of this encounter
--- OUTSIDE RECORDS SUMMARY | 2024-07-13 09:15 | XMS_ITS | Encounter Summary ---
Author Organization [facility] Address 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
--- OUTSIDE RECORDS SUMMARY | 2024-07-13 09:15 | XMS_ITS ---
Author Organization [facility] Address [address] [place] [address] Care Team Providers Care Semi Conductor Assembler Name Role Phone Shanell Lind Primary Care Provider + Maycol Hillman DO Unavailable [phone] Active Problems Problem Noted Date Diagnosed Date [...]
--- OUTSIDE RECORDS SUMMARY | 2024-07-13 09:15 | XMS_ITS | Encounter Summary ---
Author Organization [facility] Address [address] [place] [address] Care Team Providers Care Mechanical Fitter Name Role Phone Richard Howell MD Primary Care Provider Unavail able Encounter Details Date Type Department Care Team (Late st Contact Info) Description 09/23/2001 Outpatient Historical HIS [facility] [place] [address] [facility] [address] [place] [address] AFTERCARE STUDENT SUPPORT ADVISOR USE MEDICATN (Primary Dx) Social History Tobacco Use Types Packs/Day Years Used Date Smoking Tobacco: Never Assessed Sex and Gender Information Value Date Recorded Sex Assigned at Not on file Legal Sex Male 3:11 AM BEEF BONER Gender Identity Not on file Sexual Orientation Not on file documented as of this encounter Plan of Treatment Not on file documented as of this encounter Visit Diagnoses Diagnosis Encounter for long-term (current) use of other medications- Primary documented in this encounter Care Teams Mechanical Fitter Relationship Specialty Start Date End Date Richard Howell MD NO ADDRESS ON FILE PCP - General 01/15/01 documented as of this encounter
[2024-07-13 09:43] LABS: Alanine Aminotransferase 141 U/L (6-50); Albumin Level 4.3 g/dL (3.5-5.1); Alkaline Phosphatase 86 U/L (38-126); Anion Gap 9 mmol/L (4-12); Aspartate Amino Transferase 86 U/L (17-59); Bilirubin,Total 0.6 mg/dL (0.2-1.3); Blood Urea Nitrogen 12 mg/dL (9-20); Calcium 9.6 mg/dL (8.4-10.2); Carbon Dioxide 23 mmol/L (22-30); Chloride 107 mmol/L (98-107); Estimated CRCL calculation 103 ml/min; Estimated Glomerular Filt Rate > 60; Glucose 114 mg/dL (65-110); Potassium 4.4 mmol/L (3.4-5.0); Sodium 139 mmol/L (137-145); Total Protein 7.3 g/dL (6.3-8.2)
[2024-07-13 09:57] LABS: Basophils Absolute Auto 0.1 K/mm3 (0.0-0.1); Eosinophils Absolute Auto 0.1 K/mm3 (0-0.3); Eosinophils Percent Auto 1.7 % (0-4.4); Hematocrit 42.5 % (42.0-52.0); Hemoglobin 14.9 g/dL (14.0-18.0); Immature Granulocyte Absolute 0.02 K/mm3 (0.00-0.031); Immature Granulocyte Percent A 0.3 % (0-0.5); Lymphocytes Absolute Auto 2.06 K/mm3 (0.9-3.2); Lymphocytes Percent Auto 34.2 % (18.3-44.2); Mean Corpuscular HGB Conc 35.1 g/dl (32-36); Mean Corpuscular Hemoglobin 31.8 pg (26-34); Mean Corpuscular Volume 90.6 fl (80-100); Mean Platelet Volume 10.4 fl (7.4-10.4); Monocytes Absolute Auto 0.5 K/mm3 (0.1-0.6); Monocytes Percent Auto 8.1 % (2.6-8.5); Neutrophils Absolute Auto 3.3 K/mm3 (1.3-6.7); Neutrophils Percent Auto 54.7 % (45.5-73.1); Platelet Count Result 230 k/mm3 (150-375); Red Blood Count 4.69 M/mm3 (4.6-6.20); Red Cell Distribution Width 12.3 % (11.5-14.5)
--- NOTE | 2024-07-13 10:18 | ED.EYEPROB ---
HPI - Eye Problem General Chief complaint: Eye Problems Stated complaint: R. eye swelling x2 days Time Seen by Provider: 07/13/24 08:54 History of Present Illness HPI Narrative: Patient is a 58-year-old male who presents ER with swelling to the right eye. Associated with redness the sclera and edema. Had a stye couple weeks ago that went away on its own. That was in a different area where he has pain now which is at upper lid laterally. No change in vision. No photophobia. No fevers or chills or sweats. Related Data Home Medications ?Medication ?Instructions ?Recorded ?Confirmed ?Last Taken ?Type aspirin 81 mg capsule 81 mg PO DAILY 07/17/22 04/01/23 07/23/22 History Allergies Allergy/AdvReac Type Severity Reaction Status Date / Time Penicillins Allergy Fever Verified 07/13/24 08:44 Review of Systems Constitutional: Constitutional: Reports no additional constitutional complaints Eyes: Eyes: Reports no additional eye complaints ENT: Reports system reviewed and no additional complaints, except as documented PMFSH Past Medical History Medical History Bloating Blood in stool Diarrhea Elevated liver enzymes Healthy adult male Left lower quadrant pain Obese Surgical History Surgical History H/O right hemicolectomy TOM Extended R hemicolectomy on 09/13/21 History of appendectomy History of incisional hernia repair 02/20/23 laparoscopic 3 cm incisional hernia repair with mesh, da Viviana assisted. Dr. Spencer History of orthopedic surgery Family History Family History Father Heart disease Cerebrovascular accident Sibling Cerebrovascular accident Social History Social History Smoking status: Never smoker Alcohol intake: current Drinks per week: 20 Alcohol use details: BEER Substance use: never Substance use type: does not use Living arrangements: with family Spiritual care concerns: No Exam Narrative: GENERAL: Well-appearing, well-nourished, and in no acute distress. HEAD: Normocephalic, atraumatic. EYES: PERRLA and EOMI. Right eye sclera injected. Most this present. There is inflammation upper and lower lids and some the surrounding periorbital area without overt cellulitis or significant tenderness. Lid eversion performed and upper lid has a stye lateral aspect with white had that is firm an area patient's most significant discomfort. ENT: Mucous membranes moist. NEURO: Alert and oriented x3. PSYCH: Normal mood and affect. Course Course Emergency Course: Labs normal. Discussed treatment plan. Discharge. Vital Signs Vital signs: Vital Signs Temperature 97.8 F 07/13/24 08:45 Pulse Rate 78 07/13/24 08:45 Respiratory Rate 16 07/13/24 08:45 Blood Pressure 161/95 H 07/13/24 08:45 Pulse Oximetry 100 07/13/24 08:45 Oxygen Delivery Room Air 07/13/24 08:45 Temperature 97.8 F 07/13/24 08:45 Pulse Rate 78 07/13/24 08:45 Respiratory Rate 16 07/13/24 08:45 Blood Pressure 161/95 H 07/13/24 08:45 Pulse Oximetry 100 07/13/24 08:45 Oxygen Delivery Room Air 07/13/24 08:45 MDM - Eye Problem Lab Data 07/13/24 09:28 07/13/24 09:28 Labs: Lab Results 07/13/24 Range/Units 09:28 WBC 6.0 (4.5-10.0) K/mm3 RBC 4.69 (4.6-6.20) M/mm3 Hgb 14.9 D (14.0-18.0) g/dL Hct 42.5 (42.0-52.0) % MCV 90.6 (80-100) fl MCH 31.8 (26-34) pg MCHC 35.1 (32-36) g/dl RDW 12.3 (11.5-14.5) % Plt Count 230 (150-375) k/mm3 MPV 10.4 (7.4-10.4) fl Immature Gran % (Auto) 0.3 (0-0.5) % Neut % (Auto) 54.7 (45.5-73.1) % Lymph % (Auto) 34.2 (18.3-44.2) % [place] % (Auto) 8.1 (2.6-8.5) % Eos % (Auto) 1.7 (0-4.4) % Baso % (Auto) 1.0 (0.2-1.2) % Lymph # (Auto) 2.06 (0.9-3.2) K/mm3 [place] # (Auto) 0.5 (0.1-0.6) K/mm3 Eos # (Auto) 0.1 (0-0.3) K/mm3 Baso # (Auto) 0.1 (0.0-0.1) K/mm3 Abs Immat Gran (auto) 0.02 (0.00-0.031) K/mm3 Absolute Neuts (auto) 3.3 (1.3-6.7) K/mm3 Absolute Nucleated RBC 0.000 (0.0-0.012) K/mm3 Nucleated RBC % 0.0 (0.0-0.2) % Sodium 139 (137-145) mmol/L Potassium 4.4 (3.4-5.0) mmol/L Chloride 107 (98-107) mmol/L Carbon Dioxide 23 (22-30) mmol/L Anion Gap 9 (4-12) mmol/L BUN 12 (9-20) mg/dL Creatinine 0.84 (0.7-1.3) mg/dL Estim Creat Clear Calc 103 ml/min Estimated GFR > 60 (59 - ) Glucose 114 H (65-110) mg/dL Calcium 9.6 (8.4-10.2) mg/dL Total Bilirubin 0.6 (0.2-1.3) mg/dL AST 86 H (17-59) U/L ALT 141 H (6-50) U/L Alkaline Phosphatase 86 (38-126) U/L Total Protein 7.3 (6.3-8.2) g/dL Albumin 4.3 (3.5-5.1) g/dL Discharge Plan Discharge Clinical Impression: Stye, Blepharitis Patient Disposition: Home Condition: Stable Instructions: Antibiotic Form, Stye (ED), Blepharitis (ED) Additional Instructions: Return ER if you cannot see, you have increased pain, have additional concerns. Apply warm compresses for 10-15 minutes every hour. Apply antibiotics as prescribed. Take Tylenol and ibuprofen for pain. Patient Language: Mohawk Prescriptions: New erythromycin 5 mg/gram (0.5 %) ointment 0.5 inch RIGHT EYE QID Qty: 3.5 0RF No Action aspirin 81 mg Capsule 81 mg PO DAILY Follow-up/Referrals: Rafy,Maycol Louis DO [Primary Care Provider] -
== END 2024-07-13 10:42 | disposition home or self-care (01) ==
PROVIDERS: Emergency Provider Emergency Medicine; PCP Internal Medicine Medical Oncology
DX: H00.011 Hordeolum externum right upper eyelid (principal); H01.00A Unspecified blepharitis right eye, upper and lower eyelids
CPT/HCPCS: 36415; 80053; 85025; 99283

== ENCOUNTER 2025-01-05 08:33 | Outpatient (CLI) | payer OTHER, SELFPAY ==
--- NOTE | ~2025-01-05 | CT_ITS ---
EXAMINATION: CT abdomen pelvis w con DATE: 01/05/2025 08:55 INDICATION: Malignant neoplasm of transverse colon. TECHNIQUE: Computed tomography (CT) of the abdomen and pelvis was performed with 100 mL Omnipaque 350 intravenous contrast. Automated exposure control and iterative reconstruction technique were employed. The dose-length product was 773.78 mGy-cm. COMPARISON: CT abdomen and pelvis 11/09/2023 FINDINGS: The visualized portions of the lung bases demonstrate mild atelectasis. A calcified left lung nodule is consistent with old granulomatous disease. No pleural effusion. The heart size is normal. No pericardial effusion. There is diffuse hepatic steatosis. The gallbladder, spleen, pancreas, adrenal glands, and right kidney are normal. There is a 3 mm stone in left kidney. The prostate is mildly enlarged. There is diverticulosis of the colon without evidence of diverticulitis. There are changes of right hemicolectomy. There are no dilated loops of bowel. There are no pathologically enlarged lymph nodes. There is no free intraperitoneal fluid. There is severe lower lumbar spondylosis. There is a hemangioma in L2 vertebral body. IMPRESSION: 1. No evidence of metastatic disease. 2. Diffuse hepatic steatosis. Reviewed, dictated and finalized at location E. R PURIFIER OPERATOR
--- OUTSIDE RECORDS SUMMARY | 2025-01-05 08:54 | XMS_ITS | Encounter Summary ---
Author Organization [facility] Address [address] [place] [address] Care Team Providers Care Bookstore Clerk Name Role Phone Richard Howell MD Primary Care Provider Unavail able Encounter Details Date Type Department Care Team (Latest Contact Info) Description 04/17/2000 Outpatient Historical HIS 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
--- OUTSIDE RECORDS SUMMARY | 2025-01-05 08:54 | XMS_ITS | Encounter Summary ---
Author Organization [facility] Address [address] [place] [address] Care Team Providers Care Correctional Manager Name Role Phone Richard Howell MD Primary Care Provider Unavail able Encounter Details Date Type Department Care Team (Latest Contact Info) Description 04/27/2000 Outpatient Historical HIS [facility] Dominic Davis MD Pneumonia, organism unspecified(486) (Primary Dx) Social History Tobacco Use Types Packs/Day Years Used Date Smoking Tobacco: Never Assessed Sex and Gender Information Value Date Recorded Sex Assigned at Not on file Legal Sex Male 3:11 AM PROBLEM MANAGER Gender Identity Not on file Sexual Orientation Not on file documented as of this encounter Plan of Treatment Not on file documented as of this encounter Visit Diagnoses Diagnosis Pneumonia, organism unspecified(486)- Primary Pneumonia, organism unspecified documented in this encounter Care Teams Correctional Manager Relationship Specialty Start Date End Date Richard Howell MD NO ADDRESS ON FILE PCP - General 01/15/01 documented as of this encounter
--- OUTSIDE RECORDS SUMMARY | 2025-01-05 08:54 | XMS_ITS | Encounter Summary ---
Author Organization [facility] Address [address] [place] [address] Care Team Providers Care Entry Level Truck Driver Name Role Phone Richard Howell MD Primary Care Provider Unavail able Encounter Details Date Type Department Care Team (Late st Contact Info) Description 06/17/2002 Outpatient Historical HIS [place] [address] [facility] [address] [place] [address] PNEUMONIA, ORGANISM NOS (Primary Dx) Social History Tobacco Use Types Packs/Day Years Used Date Smoking Tobacco: Never Assessed Sex and Gender Information Value Date Recorded Sex Assigned at Not on file Legal Sex Male 3: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
--- OUTSIDE RECORDS SUMMARY | 2025-01-05 08:54 | XMS_ITS | Encounter Summary ---
Author Organization [facility] Address [address] [place] [address] Care Team Providers Care Cattle Driver Name Role Phone Richard Howell MD Primary Care Provider Unavail able Encounter Details Date Type Department Care Team (Late st Contact Info) Description 09/23/2001 Outpatient Historical HIS [facility] [place] [address] [facility] [address] [place] [address] AFTERCARE HOT DOG VENDER USE MEDICATN (Primary Dx) Social History Tobacco Use Types Packs/Day Years Used Date Smoking Tobacco: Never Assessed Sex and Gender Information Value Date Recorded Sex Assigned at Not on file Legal 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
--- OUTSIDE RECORDS SUMMARY | 2025-01-05 08:54 | XMS_ITS | Encounter Summary ---
Author Organization [employer] Address [address] [place] [address] Care Team Providers Care Spotter Name Role Phone Richard Howell MD Primary Care Provider Unavail able Encounter Details Date Type Department Care Team (Latest Contact Info) Description 03/14/2000 Inpatient Historical HIS PATIENT IN A BED Matthew Su MD [address] [place] [id number] Pneumococcal pneumonia (streptococcus pneumoniae pneumonia) ([facility]) (Primary Dx) Social History Tobacco Use Types Packs/Day Years Used Date Smoking Tobacco: Never Assessed Sex and Gender Information Value Date Recorded Sex Assigned at Not on file Legal Sex Male 3:11 AM FASHION CONSULTANT SALES Gender Identity Not on file Sexual Orientation Not on file documented as of this encounter Plan of Treatment Not on file documented as of this encounter Visit Diagnoses Diagnosis Pneumococcal pneumonia (streptococcus pneumoniae pneumonia) ([facility])- Primary Pneumococcal pneumonia (streptococcus pneumoniae pneumonia) documented in this encounter Care Teams Spotter Relationship Specialty Start Date End Date Richard Howell MD NO ADDRESS ON FILE PCP - General 01/15/01 documented as of this encounter
--- OUTSIDE RECORDS SUMMARY | 2025-01-05 08:54 | XMS_ITS | Encounter Summary ---
Author Organization [employer] Address [address] [place] [address] Care Team Providers Care Business Services Coordinator Name Role Phone Richard Howell MD Primary Care Provider Unavail able Encounter Details Date Type Department Care Team (Late st Contact Info) Description 05/29/2000 Outpatient Historical HIS [facility] Richard Howell MD NO ADDRESS ON FILE Social History Tobacco Use Types Packs/Day Years Used Date Smoking Tobacco: Never Assessed Sex and Gender Information Value Date Recorded Sex Assigned at Not on file Legal Sex Male 3:11 AM BAKER HEAD Gender Identity Not on file Sexual Orientation Not on file documented as of this encounter Plan of Treatment Not on file documented as of this encounter Visit Diagnoses Not on filedocumented in this encounter Care Teams Business Services Coordinator Relationship Specialty Start Date End Date Richard Howell MD NO ADDRESS ON FILE PCP - General 01/15/01 documented as of this encounter
--- OUTSIDE RECORDS SUMMARY | 2025-01-05 08:54 | XMS_ITS | Encounter Summary ---
Author Organization [employer] Address [address] [place] [address] Care Team Providers Care Director Of Home Care Hospice Name Role Phone Richard Howell MD Primary Care Provider Unavail able Encounter Details Date Type Department Care Team (Late st Contact Info) Description 08/21/2003 Outpatient Historical HIS [facility] Richard Howell MD NO ADDRESS ON FILE Social History Tobacco Use Types Packs/Day Years Used Date Smoking Tobacco: Never Assessed Sex and Gender Information Value Date Recorded Sex Assigned at Not on file Legal Sex Male 3:11 AM STAIN SPRAYER Gender Identity Not on file Sexual Orientation Not on file documented as of this encounter Plan of Treatment Not on file documented as of this encounter Visit Diagnoses Not on filedocumented in this encounter Care Teams Director Of Home Care Hospice Relationship Specialty Start Date End Date Richard Howell MD NO ADDRESS ON FILE PCP - General 01/15/01 documented as of this encounter
--- OUTSIDE RECORDS SUMMARY | 2025-01-05 08:54 | XMS_ITS | Clinical Summary ---
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, cN0, cM0) - Signed by Maycol Hillman DO on 11/18/2021 Superior glenoid labrum lesion of shoulder 04/20 Pain in shoulder 12/14/2015 Encounters Date Type Department Care Team Description 12/31/2024 Telephone [facility] [address] [place] [address] [address] [place] [address] Yamilka Awad RN from Last 3 Months Surgical History Surgery Date Site/Laterality Comments FLUORO GUIDED ASPIRATION OR INJECTION INTERMEDIATE JOINT RIGHT 08/26/2019 Right Medical History Medical History Date Comments No pertinent past medical history Family History Medical History Relation Name Comments Stroke Brother Hypertension Father Diallo Family history of hypertension - (Added by TW Conv) Stroke Father Diallo Family history of cerebrovascular accident (CVA) - (Added by TW Conv) No Known Problems Maternal Grandfather No [...] on file Legal Sex Male 11:36 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 Gender Identity Not on file Sexual Orientation Not on file Occupation Industry Job Start Date Job End Date [facility] Not on file Not on file Not on file Last Filed Vital Signs Vital Sign Reading Time Taken Comments Blood Pressure 144/89 07/18/2024 9:10 AM CDT Pulse 65 07/18/2024 9:10 AM CDT Temperature 36.7 C (98 F) 07/18/2024 9:10 AM CDT Respiratory Rate 18 07/18/2024 9:10 AM CDT Oxygen Saturation 98% 07/18/2024 9:10 AM CDT Inhaled Oxygen Concentration - - Weight 104.8 kg (231 lb 0.7 oz) 07/18/2024 9:10 AM CDT no shoes Height 174 cm (5' 8.5) 07/18/2024 9:10 AM CDT Body Mass Index 34.61 07/18/2024 9:10 AM CDT Plan of Treatment Health Maintenance Due Date Last Done Comments Depression Screening 1966 Hepatitis C Screening 1966 Prostate Cancer Screening-PSA 1966 DTaP/Tdap/Td Vaccine (1 - Tdap) 1977 Hepatitis B Screening 1984 Regular Well Visit/Exam 18-64 1984 Zoster Vaccine (1 of 2) 2016 Influenza Vaccine (#1) 2024 Colon Cancer Screening-Colonoscopy 07/25/2032 07/25/2022 Colon [...] Most Recently Relevant to Health Maintenance Insurance [facility] [employer] PPO [facility] CHOICE PLUS CHOICE PLUS [facility] CHOICE PLUS Member Subscriber Plan / Payer (Ef fective 2019-Present) Name:Ignacio Vang Relation to Subscriber:Self Name:Ignacio Vang Payer ID:[id number] (NAIC) Type:[facility] HMO/PPO Address: [place] [phone] Care Teams Calculus Teacher Relationship Specialty Start Date End Date Shanell Lind PA [address] [place] [id number] PCP - General Nurse Practitioner 11/19/21 Maycol Hillman DO [address] [place] [address] MEDICAL ONCOLOGY, [facility] [address] [place] [address] Medical Oncologist/Welding Machine Operator [facility] Hematology and Oncology 12/11/22
--- OUTSIDE RECORDS SUMMARY | 2025-01-05 08:54 | XMS_ITS | Encounter Summary ---
Author Organization [facility] Address 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
--- OUTSIDE RECORDS SUMMARY | 2025-01-05 08:54 | XMS_ITS | Encounter Summary ---
Author Organization [facility] Address 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
--- OUTSIDE RECORDS SUMMARY | 2025-01-05 08:54 | XMS_ITS | Encounter Summary ---
Author Organization [employer] Address 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
--- OUTSIDE RECORDS SUMMARY | 2025-01-05 08:54 | XMS_ITS | Encounter Summary ---
Author Organization [employer] Address 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
--- OUTSIDE RECORDS SUMMARY | 2025-01-05 08:54 | XMS_ITS | Encounter Summary ---
Author Organization [employer] Address [address] [place] [address] Care Team Providers Care Handkerchief Folder Name Role Phone Richard Howell MD Primary Care Provider Unavail able Encounter Details Date Type Department Care Team (Late st Contact Info) Description 06/17/2002 Outpatient Historical HIS 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
--- OUTSIDE RECORDS SUMMARY | 2025-01-05 08:54 | XMS_ITS | Encounter Summary ---
Author Organization [employer] Address 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
--- OUTSIDE RECORDS SUMMARY | 2025-01-05 08:54 | XMS_ITS | Encounter Summary ---
Author Organization [facility] Address 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
--- OUTSIDE RECORDS SUMMARY | 2025-01-05 08:54 | XMS_ITS | Encounter Summary ---
Author Organization [facility] Address 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
--- OUTSIDE RECORDS SUMMARY | 2025-01-05 08:54 | XMS_ITS | Encounter Summary ---
Author Organization [employer] Address 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
--- OUTSIDE RECORDS SUMMARY | 2025-01-05 08:54 | XMS_ITS | Encounter Summary ---
Author Organization [facility] Address [address] [place] [address] Care Team Providers Care Flake Drier Name Role Phone Richard Howell MD Primary Care Provider Unavail able Encounter Details Date Type Department Care Team (Latest Contact Info) Description 07/09/2000 Outpatient Historical HIS [facility] Dominic Davis MD Pulmonary collapse (Primary Dx) Social History Tobacco Use Types Packs/Day Years Used Date Smoking Tobacco: Never Assessed Sex and Gender Information Value Date Recorded Sex Assigned at Not on file Legal Sex Male 3:11 AM DISTRICT AGENT Gender Identity Not on file Sexual Orientation Not on file documented as of this encounter Plan of Treatment Not on file documented as of this encounter Visit Diagnoses Diagnosis Pulmonary collapse- Primary documented in this encounter Care Teams Flake Drier Relationship Specialty Start Date End Date Richard Howell MD NO ADDRESS ON FILE PCP - General 01/15/01 documented as of this encounter
--- OUTSIDE RECORDS SUMMARY | 2025-01-05 08:54 | XMS_ITS ---
Author Organization [facility] Address [address] [place] [address] Care Team Providers Care President And Chief Commercial Officer Name Role Phone Shanell Lind Primary Care Provider + Maycol Hillman DO Unavailable [phone] Active Problems Problem Noted Date Diagnosed Date [...]
--- OUTSIDE RECORDS SUMMARY | 2025-01-05 08:54 | XMS_ITS | Clinical Summary ---
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
--- OUTSIDE RECORDS SUMMARY | 2025-01-05 08:54 | XMS_ITS | Encounter Summary ---
Author Organization [employer] Address 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
--- OUTSIDE RECORDS SUMMARY | 2025-01-05 08:54 | XMS_ITS | Encounter Summary ---
Author Organization [employer] [facility] Address [address] [place] [address] Care Team Providers Care Hired Help Name Role Phone Richard Howell MD Primary Care Provider Unavail able Encounter Details Date Type Department Care Team (Late st Contact Info) Description 12/24/2000 Outpatient Historical HIS [facility] Richard Howell MD NO ADDRESS ON FILE Social History Tobacco Use Types Packs/Day Years Used Date Smoking Tobacco: Never Assessed Sex and Gender Information Value Date Recorded Sex Assigned at Not on file Legal Sex Male 3:11 AM BAREBACK RIDER Gender Identity Not on file Sexual Orientation Not on file documented as of this encounter Plan of Treatment Not on file documented as of this encounter Visit Diagnoses Not on filedocumented in this encounter Care Teams Hired Help Relationship Specialty Start Date End Date Richard Howell MD NO ADDRESS ON FILE PCP - General 01/15/01 documented as of this encounter
--- OUTSIDE RECORDS SUMMARY | 2025-01-05 08:54 | XMS_ITS | Encounter Summary ---
Author Organization [employer] Address [address] [place] [address] Care Team Providers Care Chucking And Boring Machine Operator Name Role Phone Richard Howell MD Primary Care Provider Unavail able Encounter Details Date Type Department Care Team (Late st Contact Info) Description 03/21/2000 Inpatient Historical HIS PATIENT IN A BED Dominic Salazar MD Hastings, Thomas F, MD [address] 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
--- OUTSIDE RECORDS SUMMARY | 2025-01-05 08:54 | XMS_ITS | Encounter Summary ---
Author Organization [facility] Address [address] [place] [address] Care Team Providers Care Air Carrier Operations Inspector Name Role Phone Richard Howell MD Primary Care Provider Unavail able Encounter Details Date Type Department Care Team (Latest Contact Info) Description 09/11/2005 Outpatient Historical HIS [facility] Richard Lewis MD NO ADDRESS ON FILE Fever (Primary Dx) Social History Tobacco Use Types Packs/Day Years Used Date Smoking Tobacco: Never Assessed Sex and Gender Information Value Date Recorded Sex Assigned at Not on file Legal Sex Male 3:11 AM ROLLER CHECKER Gender Identity Not on file Sexual Orientation Not on file documented as of this encounter Plan of Treatment Not on file documented as of this encounter Visit Diagnoses Diagnosis Fever and other physiologic disturbances of temperature regulation- Primary documented in this encounter Care Teams Air Carrier Operations Inspector Relationship Specialty Start Date End Date Richard Howell MD NO ADDRESS ON FILE PCP - General 01/15/01 documented as of this encounter
--- OUTSIDE RECORDS SUMMARY | 2025-01-05 08:54 | XMS_ITS | Encounter Summary ---
Author Organization [facility] Address 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
--- OUTSIDE RECORDS SUMMARY | 2025-01-05 08:54 | XMS_ITS | Encounter Summary ---
Author Organization [facility] Address [address] [place] [address] Care Team Providers Care Ivf Embryologist Name Role Phone Richard Howell MD Primary [...] on file Legal Sex Male 3:11 AM RN OTOLARYNGOLOGY Gender Identity Not on file Sexual Orientation Not on file documented as of this encounter Plan of Treatment Not on file documented as of this encounter Visit Diagnoses Diagnosis Displacement of lumbar intervertebral disc without myelopathy- Primary documented in this encounter Care Teams Ivf Embryologist Relationship Specialty Start Date End Date Richard Howell MD NO ADDRESS ON FILE PCP - General 01/15/01 documented as of this encounter
== END 2025-01-05 08:34 | disposition home or self-care (01) ==
PROVIDERS: PCP Internal Medicine Medical Oncology; Visit Provider Internal Medicine Medical Oncology
DX: C18.4 Malignant neoplasm of transverse colon (principal)
CPT/HCPCS: 74177; Q9967